=== PATIENT | female | born 1930 | race Caucasian/White ===

== ENCOUNTER 2018-12-29 18:09 | Emergency (ER) | payer OTHER ==
--- OUTSIDE RECORDS SUMMARY | 2018-12-29 18:11 | XMS REPORT ---
:1930 Author Organization [facility] Address [address] [place] [address] Dr. Han[address] [place] [id number] Care Team Providers Name Role Phone Unavailable Unavailable Unavailable Problems This patient has no known problems. Allergies, Adverse Reactions, Alerts This patient has no known allergies or adverse reactions. Medications This patient has no known medications.
--- OUTSIDE RECORDS SUMMARY | 2018-12-29 18:11 | XMS REPORT ---
:1930 Author Organization eClinicalWorks Care Team Providers Name Role Phone Sophia Pham Provider Role Unavailable Allergies, Adverse Reactions, Alerts Substance Reaction Event Type Cyclobenzaprine HCl Info Not Available Drug Allergy Problems Problem Type Condition Code Onset Dates Condition Status Problem Chronic obstructive pulmonary J44.9 Active disease, unspecified COPD type Problem Osteoporosis, unspecified M81.0 Active osteoporosis type, unspecified pathological fracture presence Problem Hypertension, unspecified type I10 Active Problem Anemia D64.9 Active Problem Osteoporosis M81.0 Active Problem GERD (gastroesophageal reflux K21.9 Active disease) 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 Problem History of cerebrovascular accident Z86.73 Active Problem History of fall Z91.81 Active Problem 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, unspecified Assessment Osteoporosis, unspecified M81.0 Active osteoporosis type, unspecified pathological fracture presence Assessment Chronic obstructive pulmonary J44.9 Active disease, unspecified COPD type Assessment Hypertension, unspecified type I10 Active Problem History of pancreatitis Z87.19 Active Assessment Hypothyroidism, unspecified type E03.9 Active Problem Hypothyroidism, unspecified type E03.9 Active Assessment Hyperlipidemia, unspecified E78.5 Active hyperlipidemia type Problem Hyperlipidemia, unspecified E78.5 Active hyperlipidemia type Medications Medication Code Code Instructions Start End Status Dosage System Date Date Myrbetriq [facility] 50270251300 25 MG Orally Active 1 tablet Once a day Verapamil HCl ER [facility] 37978491023 120 MG Orally Active 1 capsule Once a day (SR) per Sendkali Colmenares Advair Diskus [facility] [address]-32 250-50 MCG/DOSE Active not Inhalation defined Doxycycline [facility] 61017546029 100 MG Orally Active 1 capsule Hyclate Twice a day x10 days Oxybutynin [facility] 22750421669 10 MG Orally Oct Active 1 tablet Chloride ER Once a day 2017 Robaxin [facility] 62337958716 500 MG Orally Active 1.5 every 4 hrs tablets Diltiazem HCl ER [facility] [address]-19 360 MG Orally Active 1 capsule Once a day Pantoprazole [facility] 18961861294 40 MG Orally Active 1 tablet Sodium Once daily Biaxin ND 66437630113 500 MG Orally Active 1 tablet every 12 hrs Symbicort [facility] 11020672653 160-4.5 MCG/ACT Active 2 puffs Inhalation Twice a day Plavix [facility] 50586850236 75 MG Orally Active 1 tablet Once daily ProAir HFA [facility] 48915867375 108 (90 Base) Active 2 puffs as MCG/ACT needed for Inhalation sob or every 4-6 hrs wheezing Nitroglycerin [facility] 46744368339 0.4 MG Active not Sublingual defined Simvastatin [facility] 61275124304 20 mg Orally Active 1 tablet Once a day in the evening Ferrous Sulfate [facility] 23537147996 325 (65 Fe) MG Active 1 tablet Orally Once a day Augmentin [facility] 35900592830 875-125 MG Active 1 tablet Orally Twice daily [id number]-[id number] [facility] [address]27 Orally Once Active 1 tablet daily Prolia [facility] 71972296494 60 MG/ML Active not Subcutaneous defined Synthroid [facility] 00428590222 25 MCG Orally Active 1 tablet Once a day on an empty stomach in the morning Keflex [facility] 15575497373 500 MG Orally Active 1 capsule every 12 hrs Folic Acid ND 79895111984 1 MG Orally Active 1 tablet Once a day Aspir-Low [facility] 08280592413 81 MG Orally Active 1 tablet Once a day Results No Known Results Summary Purpose eClinicalWorks Submission
--- OUTSIDE RECORDS SUMMARY | 2018-12-29 18:12 | XMS REPORT ---
:1930 Author Organization eClinicalWorks Care Team Providers Name Role Phone Sophia Pham Provider Role Unavailable Allergies No Known Allergies Problems Problem Type Condition Code Onset Dates [...] vocal cords and J38.00 Active larynx, unspecified Problem History of pancreatitis Z87.19 Active Problem Hypothyroidism, unspecified type E03.9 Active Problem Hyperlipidemia, unspecified E78.5 Active hyperlipidemia type Medications Medication Code Code Instructions Start End Date Status Dosage System Date Prolia [facility] 35591426678 60 MG/ML March 13, Sep 04, Active as directed Subcutaneous 2017 injection every 6 months Results No Known Results Summary Purpose eClinicalWorks Submission
--- OUTSIDE RECORDS SUMMARY | 2018-12-29 18:12 | XMS REPORT ---
:1930 [facility] Team Providers Name Role Phone Sophia [...] Problem Hypothyroidism, unspecified type E03.9 Active Assessment Osteoporosis, unspecified M81.0 Active osteoporosis type, unspecified pathological fracture presence Problem Hyperlipidemia, unspecified E78.5 Active hyperlipidemia type Medications Medication Code Code Instructions Start End Status Dosage System Date Date Z54-Cgmxsd [facility] [address] Orally Once Active 1 tablet daily Verapamil HCl ER ND 70479807373 120 MG Orally Active 1 capsule Once a day (SR) per Sendi Colmenares Prolia [facility] 55614773147 60 MG/ML Active not Subcutaneous defined Robaxin [facility] 38722766779 500 MG Orally Active 1.5 every 4 hrs tablets Taztia XT [facility] 96723519590 360 MG Active TAKE ONE (1) CAPSULE(S) BY MOUTH ONCE A DAY. Biaxin ND 11352957766 500 MG Orally Active 1 tablet every 12 hrs Keflex ND 74567799305 500 MG Orally Active 1 capsule every 12 hrs Myrbetriq ND 44533645595 25 MG Orally Active 1 tablet Once a day Ferrous Sulfate ND 53610164396 325 (65 Fe) MG Active 1 tablet Orally Once a day Synthroid ND 66275684367 25 MCG Orally Active 1 tablet Once a day on an empty stomach in the morning Prolia [facility] 96220179521 60 MG/ML March Active as Subcutaneous 1 2017 05, directed injection every 2019 6 months Prolia ND 44615521224 60 MG/ML April 09Oct Active as Subcutaneous 2017 12, directed every 6 months 2019 Augmentin [facility] 34326128526 875-125 MG Active 1 tablet Orally Twice daily Folic Acid [facility] 31296697201 1 MG Orally Active 1 tablet Once a day Pantoprazole [facility] 94191828227 40 MG Orally Active 1 tablet Sodium Once daily Diltiazem HCl ER [facility] [address]-65 360 MG Orally Active 1 capsule Once a day Doxycycline [facility] 15034972169 100 MG Orally Active 1 capsule Hyclate Twice a day x10 days Aspir-Low [facility] 84505455194 81 MG Orally Active 1 tablet Once a day Nitroglycerin [facility] 07333627743 0.4 MG Active not Sublingual defined ProAir HFA [facility] 21388878750 108 (90 Base) Active 2 puffs as MCG/ACT needed for Inhalation sob or every 4-6 hrs wheezing Simvastatin [facility] 91914787891 20 mg Orally Active 1 tablet Once a day in the evening Symbicort [facility] 16522362350 160-4.5 MCG/ACT Active 2 puffs Inhalation Twice a day Oxybutynin [facility] 24176193638 10 MG Orally Oct Active 1 tablet Chloride ER Once a day 2017 Plavix [facility] 77995697315 75 MG Orally Active 1 tablet Once daily Advair Diskus [facility] [address]-96 250-50 MCG/DOSE Active not Inhalation defined Results No Known Results Summary Purpose eClinicalWorks Submission
--- OUTSIDE RECORDS SUMMARY | 2018-12-29 18:12 | XMS REPORT ---
[...] Hyperlipidemia, unspecified E78.5 Active hyperlipidemia type Medications No Known Medications Results No Known Results Summary Purpose [employer] Submission
--- OUTSIDE RECORDS SUMMARY | 2018-12-29 18:12 | XMS REPORT ---
[...] End Date Status Dosage System Date Prolia [facility] 05498148426 60 MG/ML April 09Oct 01, Active as directed Subcutaneous 2017 2018 every 6 months Results No Known Results Summary Purpose eClinicalWorks Submission
--- OUTSIDE RECORDS SUMMARY | 2018-12-29 18:12 | XMS REPORT ---
: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, unspecified Problem GERD (gastroesophageal reflux K21.9 Active disease) Problem Overactive bladder N32.81 Active Problem History of fall Z91.81 Active Problem Hypothyroidism, unspecified type E03.9 Active Assessment Osteoporosis, unspecified M81.0 Active osteoporosis type, unspecified pathological fracture presence Problem History of pancreatitis Z87.19 Active Problem Hypertension, unspecified type I10 Active Problem Hyperlipidemia, unspecified E78.5 Active hyperlipidemia type Problem Osteoporosis, unspecified M81.0 Active osteoporosis type, unspecified pathological fracture presence Problem Chronic obstructive pulmonary J44.9 Active disease, unspecified COPD type Problem History of cerebrovascular Z86.73 Active accident Medications Medication Code Code Instructions Start End Status Dosage System Date Date Augmentin [facility] [place] 72055778310 875-125 MG Active 1 tablet Orally Twice daily Keflex [facility] [place]] 64863813562 500 MG Orally Active 1 capsule every 12 hrs Diltiazem HCl ER [facility] [place]] 89005995724 360 MG Orally Sep 03, Active 1 tablet Coated Beads Once a day 2017 Myrbetriq [facility] [place] 44198155796 25 MG Orally Active 1 tablet Once a day Myrbetriq [facility] [place]] 83560454495 25 mg Orally Sep 03May Active 1 tablet Once a day 2017 Loratadine [facility] [place]] 42298941558 10 MG Orally Active 1 tablet Once daily Aspir-Low [facility] [place] 12243329323 81 MG Orally Active 1 tablet Once a day Biaxin [facility] [place]] 00506845755 500 MG Orally Active 1 tablet every 12 hrs ProAir HFA [facility] [place]] 63109043236 108 (90 Base) Active 2 puffs as MCG/ACT needed for Inhalation sob or every 4-6 hrs wheezing Verapamil HCl ER [facility] [place]] 95068775976 120 MG Orally Active 1 capsule Once a day (SR) per Sendi Colmenares Oxybutynin [facility] [place]] 43875981148 10 MG Active TAKE ONE Chloride ER (1) TABLET(S) BY MOUTH ONCE A DAY. Plavix [facility] [place]] 90814438085 75 MG Orally Active 1 tablet Once daily Prolia [facility] [place] 76537623248 60 MG/ML March Active as Subcutaneous 1 2017 16, directed injection every 2019 6 months Vitamin E ND 04265854276 400 UNIT Orally Active 1 tablet Once daily Symbicort [facility] [place]] 28870383107 160-4.5 MCG/ACT Active 2 puffs Inhalation Twice a day Advair Diskus [facility] [place] [address]-64 250-50 MCG/DOSE Active not Inhalation defined Robaxin [facility] [place] 51275628981 500 MG Orally Active 1.5 every 4 hrs tablets Flonase [facility] [place]] 95836689653 50 MCG/ACT Active 2 sprays Nasally Once a day ProAir HFA [facility] [place] 75777794065 108 (90 Base) Sep 03, Active 2 puffs as MCG/ACT 2017 needed Inhalation every 4-6 hrs Lyrica [facility] [place]] 15856726771 50 MG Orally Active 1 capsule Once to twice daily as needed for pain Nitroglycerin [facility] [place]] 59072410329 0.4 MG Active not Sublingual defined Doxycycline [facility] [place]] 26231288315 100 MG Orally Active 1 capsule Hyclate Twice a day x10 days P38-[id number] [facility] [place] 2] 71332168282 1 MG Orally Active 1 tablet Once daily (1,000 mcg) Pantoprazole [facility] [place]] 31460753841 40 MG Orally Active 1 tablet Sodium Once daily Synthroid ND 27230498917 25 MCG Orally Active 1 tablet Once a day on an empty stomach in the morning Folic Acid [facility] [place] 65413924125 1 MG Orally Active 1 tablet Once a day Ferrous Sulfate [facility] [place] 2] 04596221560 325 (65 Fe) MG Active 1 tablet Orally Once a day Simvastatin ND 76721329127 20 mg Orally Active 1 tablet Once a day in the evening Results No Known Results Summary Purpose eClinicalWorks Submission
--- OUTSIDE RECORDS SUMMARY | 2018-12-29 18:12 | XMS REPORT ---
:1930 Author Organization eClinicalWorks Care Team Providers Name Role Phone Carolina Mcgraw Provider Role Unavailable Allergies, Adverse Reactions, Alerts [...] Problem Hypothyroidism, unspecified type E03.9 Active Assessment Contusion of right upper S40.021A Active extremity, initial encounter Problem History of pancreatitis Z87.19 Active Problem Hypertension, unspecified type I10 Active Problem Hyperlipidemia, unspecified E78.5 Active hyperlipidemia type Problem Osteoporosis, unspecified M81.0 Active osteoporosis type, unspecified pathological fracture presence Problem Chronic obstructive pulmonary J44.9 Active disease, unspecified COPD type Problem History of cerebrovascular Z86.73 Active accident Medications Medication Code Code Instructions Start End Status Dosage System Date Date Simvastatin ND 68289171329 20 mg Orally Active 1 tablet Once a day in the evening Verapamil HCl ER ND 54564698588 120 MG Orally Active 1 capsule Once a day (SR) per Sendi Colmenares Prolia [facility] 62395128339 60 MG/ML April 09Oct Active as Subcutaneous 2017 12, directed every 6 months 2018 Prolia ND 78209902159 60 MG/ML March Active as Subcutaneous 2017 05, directed injection every 2019 6 months Symbicort [facility] 42906632304 160-4.5 MCG/ACT Active 2 puffs Inhalation Twice a day Advair Diskus [facility] [address]-07 250-50 MCG/DOSE Active not Inhalation defined Nitroglycerin [facility] 29514132482 0.4 MG Active not Sublingual defined Keflex ND 08443001932 500 MG Orally Active 1 capsule every 12 hrs ProAir HFA [facility] 29426833268 108 (90 Base) Active 2 puffs as MCG/ACT needed for Inhalation sob or every 4-6 hrs wheezing Oxybutynin [facility] 86305933496 10 MG Active TAKE ONE Chloride ER (1) TABLET(S) BY MOUTH ONCE A DAY. Robaxin [facility] 82123289075 500 MG Orally Active 1.5 every 4 hrs tablets Biaxin [facility] 47831404368 500 MG Orally Active 1 tablet every 12 hrs Myrbetriq ND 29885319631 25 MG Orally Active 1 tablet Once a day Ferrous Sulfate [facility] 91268126789 325 (65 Fe) MG Active 1 tablet Orally Once a day Aspir-Low ND 58886594144 81 MG Orally Active 1 tablet Once a day Prolia [facility] 60481315222 60 MG/ML Active not Subcutaneous defined Taztia XT [facility] 69144493484 360 MG Active TAKE ONE (1) CAPSULE(S) BY MOUTH ONCE A DAY. Plavix [facility] 49472263138 75 MG Orally Active 1 tablet Once daily Folic Acid ND 35127990492 1 MG Orally Active 1 tablet Once a day Pantoprazole [facility] 92261397287 40 MG Orally Active 1 tablet Sodium Once daily Synthroid [facility] 68435959386 25 MCG Active TAKE ONE (1) TABLET(S) BY MOUTH ONCE A DAY. [id number] [facility] [address] Orally Once Active 1 tablet daily Augmentin [facility] 70693759721 875-125 MG Active 1 tablet Orally Twice daily Doxycycline ND 64450739847 100 MG Orally Active 1 capsule Hyclate Twice a day x10 days Results No Known Results Summary Purpose eClinicalWorks Submission
--- OUTSIDE RECORDS SUMMARY | 2018-12-29 18:12 | XMS REPORT ---
[...] Medications Results No Known Results Summary Purpose [employer] Submission
--- OUTSIDE RECORDS SUMMARY | 2018-12-29 18:12 | XMS REPORT ---
[...] Medications Results No Known Results Summary Purpose [employer] Submission
--- OUTSIDE RECORDS SUMMARY | 2018-12-29 18:12 | XMS REPORT ---
:1930 Author Organization eClinicalWorks Care Team Providers Name Role Phone Ángel Phamen Provider Role Unavailable Allergies, Adverse Reactions, Alerts Substance Reaction Event Type Cyclobenzaprine HCl Info Not Available Drug Allergy Problems Problem Type Condition Code Onset Dates Condition Status Assessment Osteoporosis, unspecified M81.0 Active osteoporosis type, unspecified pathological fracture presence Problem Osteoporosis, unspecified M81.0 Active osteoporosis type, unspecified pathological fracture presence Assessment Overactive bladder N32.81 Active Problem History of cerebrovascular Z86.73 Active accident Assessment Hypothyroidism, unspecified type E03.9 Active 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 Problem Anemia D64.9 Active Problem Osteoporosis M81.0 Active Problem Dysphagia, unspecified type R13.10 Active Problem Status post fall Z91.81 Active Assessment Status post fall Z91.81 Active Assessment Hypertension, unspecified type I10 Active Problem Contusion of right upper S40.021A Active extremity, initial encounter Assessment Hyperlipidemia, unspecified E78.5 Active hyperlipidemia type Problem 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, unspecified Problem GERD (gastroesophageal reflux K21.9 Active disease) Problem Overactive bladder N32.81 Active Problem History of fall Z91.81 Active Problem Hypothyroidism, unspecified type E03.9 Active Assessment History of cerebrovascular Z86.73 Active accident Assessment Dysphagia, unspecified type R13.10 Active Problem History of pancreatitis Z87.19 Active Problem Hypertension, unspecified type I10 Active Problem Hyperlipidemia, unspecified E78.5 Active hyperlipidemia type Problem Chronic obstructive pulmonary J44.9 Active disease, unspecified COPD type Medications Medication Code Code Instructions Start End Status Dosage System Date Date Robaxin [facility] 53177386847 500 MG Orally Active 1.5 every 4 hrs tablets ProAir HFA [facility] 16105196496 108 (90 Base) Sep 03, Active 2 puffs as MCG/ACT 2018 needed Inhalation every 4-6 hrs Diltiazem HCl ER ND 62185400238 360 MG Orally Sep 03, Active 1 tablet Coated Beads Once a day 2017 Simvastatin ND 17641752593 20 mg Orally Active 1 tablet Once a day in the evening Oxybutynin ND 05102797336 10 MG Active TAKE ONE Chloride ER (1) TABLET(S) BY MOUTH ONCE A DAY. Folic Acid ND 12228918484 1 MG Orally Active 1 tablet Once a day Doxycycline ND 48845813044 100 MG Orally Active 1 capsule Hyclate Twice a day x10 days Nitroglycerin ND 64719046204 0.4 MG Active not Sublingual defined Plavix [facility] 06348886271 75 MG Orally Active 1 tablet Once daily Myrbetriq ND 28524136856 25 MG Orally Active 1 tablet Once a day Taztia XT ND 71321657003 360 MG Active TAKE ONE (1) CAPSULE(S) BY MOUTH ONCE A DAY. Prolia [facility] 29242474511 60 MG/ML March Active as Subcutaneous 1 2017 05, directed injection every 2018 6 months Keflex ND 47030263676 500 MG Orally Active 1 capsule every 12 hrs Biaxin ND 43690765582 500 MG Orally Active 1 tablet every 12 hrs Ferrous Sulfate [facility] 95887878965 325 (65 Fe) MG Active 1 tablet Orally Once a day Aspir-Low ND 37495071092 81 MG Orally Active 1 tablet Once a day Augmentin ND 28683327818 875-125 MG Active 1 tablet Orally Twice daily Synthroid ND 57910780862 25 MCG Orally Active 1 tablet Once a day on an empty stomach in the morning Myrbetriq ND 55524933873 25 mg Orally Sep 03May Active 1 tablet Once a day 2017 ProAir HFA [facility] 29394685459 108 (90 Base) Active 2 puffs as MCG/ACT needed for Inhalation sob or every 4-6 hrs wheezing Pantoprazole ND 22099223245 40 MG Orally Active 1 tablet Sodium Once daily Prolia [facility] 47609738062 60 MG/ML Active [place] [address]-87 250-50 MCG/DOSE Active not Inhalation defined U81-Cknkfu [facility] [address] Orally Once Active 1 tablet daily Verapamil HCl ER ND 85728727317 120 MG Orally Active 1 capsule Once a day (SR) per Sendi Colmenares Symbicort [facility] 38892631801 160-4.5 MCG/ACT Active 2 puffs Inhalation Twice a day Results No Known Results Summary Purpose eClinicalWorks Submission
--- OUTSIDE RECORDS SUMMARY | 2018-12-29 18:12 | XMS REPORT ---
:1930 Author Organization eClinicalWorks Care Team Providers Name Role Phone Ángel Phamen Provider Role Unavailable Allergies No Known Allergies [...] Problem Hypothyroidism, unspecified type E03.9 Active Problem History of pancreatitis Z87.19 Active Problem Hypertension, unspecified type I10 Active Problem Hyperlipidemia, unspecified E78.5 Active hyperlipidemia type Problem Osteoporosis, unspecified M81.0 Active osteoporosis type, unspecified pathological fracture presence Problem Chronic obstructive pulmonary J44.9 Active disease, unspecified COPD type Problem History of cerebrovascular Z86.73 Active accident Medications No Known Medications Results No Known Results Summary Purpose [employer] Submission
--- OUTSIDE RECORDS SUMMARY | 2018-12-29 18:13 | XMS REPORT ---
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 Assessment Osteoporosis, unspecified M81.0 Active osteoporosis type, unspecified pathological fracture presence 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 Problem Anemia D64.9 Active Problem Osteoporosis M81.0 Active Problem Dysphagia, unspecified type R13.10 Active Problem Status post fall Z91.81 Active Assessment Hypothyroidism, unspecified type E03.9 Active Assessment Chronic obstructive pulmonary J44.9 Active disease, unspecified COPD type Problem Contusion of right upper S40.021A Active extremity, initial encounter Assessment GERD (gastroesophageal reflux K21.9 Active disease) Problem 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, unspecified Problem GERD (gastroesophageal reflux K21.9 Active disease) Problem Overactive bladder N32.81 Active Problem History of fall Z91.81 Active Problem Hypothyroidism, unspecified type E03.9 Active Assessment Hyperlipidemia, unspecified E78.5 Active hyperlipidemia type Assessment Hypertension, unspecified type I10 Active Problem History of pancreatitis Z87.19 Active Problem Hypertension, unspecified type I10 Active Problem Hyperlipidemia, unspecified E78.5 Active hyperlipidemia type Problem Chronic obstructive pulmonary J44.9 Active disease, unspecified COPD type Medications Medication Code Code Instructions Start End Status Dosage System Date Date Diltiazem HCl ER ND 94694614932 360 MG Orally Sep 03, Active 1 tablet Coated Beads Once a day 2017 Loratadine ND 63427933228 10 MG Orally Active 1 tablet Once daily Oxybutynin ND 42698296613 10 MG Active TAKE ONE Chloride ER (1) TABLET(S) BY MOUTH ONCE A DAY. [id number] ND 19012979474 1 MG Orally Active 1 tablet Once daily (1,000 mcg) ProAir HFA [facility] 93085459398 108 (90 Base) Sep 03, Active 2 puffs as MCG/ACT 2018 needed Inhalation every 4-6 hrs Keflex [facility] 20872988436 500 MG Orally Active 1 capsule every 12 hrs Doxycycline ND 20220325680 100 MG Orally Active 1 capsule Hyclate Twice a day x10 days Simvastatin [facility] 13955551229 20 mg Orally Active 1 tablet Once a day in the evening Vitamin E [facility] 64555188359 400 UNIT Orally Active 1 tablet Once daily Pantoprazole [facility] 82865361328 40 MG Orally Active 1 tablet Sodium Once daily Myrbetriq [facility] 68636970081 25 MG Orally Active 1 tablet Once a day Lyrica [facility] 31384073082 50 MG Orally Active 1 capsule Once to twice daily as needed for pain Biaxin [facility] 59661057482 500 MG Orally Active 1 tablet every 12 hrs Augmentin [facility] 57228915159 875-125 MG Active 1 tablet Orally Twice daily Synthroid [facility] 79588686449 25 MCG Orally Active 1 tablet Once a day on an empty stomach in the morning Myrbetriq [facility] 80031582106 25 mg Orally Sep 03May Active 1 tablet Once a day 2017 Ferrous Sulfate [facility] 12610148346 325 (65 Fe) MG Active 1 tablet Orally Once a day Advair Diskus [facility] [address]-89 250-50 MCG/DOSE Active not Inhalation defined Flonase [facility] 70031561071 50 MCG/ACT Active 2 sprays Nasally Once a day Verapamil HCl ER [facility] 42905268360 120 MG Orally Active 1 capsule Once a day (SR) per Sendi Colmenares Prolia [facility] 88470495004 60 MG/ML March Active as Subcutaneous 1 2017 16, directed injection every 2019 6 months Robaxin [facility] 02140734014 500 MG Orally Active 1.5 every 4 hrs tablets Plavix [facility] 52638678892 75 MG Orally Active 1 tablet Once daily Folic Acid [facility] 40803732790 1 MG Orally Active 1 tablet Once a day ProAir HFA [facility] 60316582172 108 (90 Base) Active 2 puffs as MCG/ACT needed for Inhalation sob or every 4-6 hrs wheezing Aspir-Low [facility] 88603026745 81 MG Orally Active 1 tablet Once a day Nitroglycerin [facility] 67208994947 0.4 MG Active not Sublingual defined Symbicort [facility] 04987799770 160-4.5 MCG/ACT Active 2 puffs Inhalation Twice a day Results No Known Results Summary Purpose [employer] Submission
[2018-12-29] MEDS ORDERED: ACETAMINOPHEN 500 MG TAB ONE (19:03)
--- NOTE | 2018-12-29 19:27 | RAD REPORT ---
EXAM DESCRIPTION: CT - C[facility] - 12/29/2018 7:13 pm CLINICAL HISTORY: Fall, head and neck injury COMPARISON: CT head and cervical August 2016 TECHNIQUE: Axial 5 mm thick images of the head were obtained. Axial 2 mm thick images of the cervic al spine were obtained with sagittal and coronal reconstruction images generated and reviewed. All CT scans are performed using dose optimization technique as appropriate and may include automated exposure control or mA/KV adjustment according to patient size. FINDINGS: No intracranial hemorrhage, mass, edema or acute intracranial finding. No cortical edema o r sulcal effacement. Prominent atrophy and chronic ischemic changes are present. Old right basal gang gabo CVA changes are noted. Ventricles are prominent and may be slightly outside of proportion for the amount of volume loss. This is a stable pattern but could indicate normal pressure hydrocephalus. Ch ronic partial opacification of the left side mastoid air cells. Right-side mastoid air cells show min imal opacification also similar to prior imaging. No acute paranasal sinus finding. No globe or orbit abnormality seen. Cervical bodies are normal in height. Left convex curvature of the cervical spine matches the prior s tudy. No fracture or acute bony abnormality. C4-5 disc space narrowing is present. Spur or calcified protruding disc material causes significant central spinal stenosis. This is not significantly differ ent from the comparison. Significant C6-7 disc space narrowing with endplate spurring. Canal is borde rline stenotic. Significant facet degenerative changes are present. There is bilateral foraminal sten osis at C4-5. No paraspinal mass or hematoma. IMPRESSION: No hemorrhage, edema or acute intracranial finding. Patient has prominent atrophy and ch ronic ischemic change similar to comparison. Ventriculomegaly is present and could indicate normal pressure hydrocephalus. This is a stable findin g from comparison. Chronic left-side and partial right-side mastoid air cell opacification also stable from prior imagin g. Prominent cervical spine degenerative change including significant central spinal stenosis at C4-5. N o fracture or acute finding seen. No clear change from comparison.
--- NOTE | 2018-12-29 21:26 | EDPHYS ---
Physician Documentation [facility] Name: Mariluz Lau Age: 88 yrs Sex: Female : 1930 Arrival Date: 12/29/2018 Time: 18:12 Bed 20 Private MD: Sophia Pham ED Physician Fuad Delatorre HPI: 12/29 21:28 This 88 yrs old Female presents to ER via Wheelchair with complaints of Fall wa Injury - HEAD PAIN. 21:28 Details of fall: The patient fell from an upright position, while walking. Onset: The wa symptoms/episode began/occurred just prior to arrival. Associated injuries: The patient sustained injury to the head, hit back of head. no LOC. Severity of symptoms: At their worst the symptoms were moderate, in the emergency department the symptoms are unchanged. The patient has not experienced similar symptoms in the past. The patient has not recently seen a physician. c/o WOODARD. denies vomiting, photophobia or dizziness. Historical: - Allergies: 18:17 Codeine; tw2 18:17 Tape; tw2 18:17 Flexeril; tw2 - Home Meds: 18:17 aspirin 81 mg Oral TbEC 1 tab once daily [Active]; diltiazem HCl 360 mg Oral cpER tw2 [Active]; Iron CR Oral twice a week [Active]; levothyroxine 25 mcg tab [Active]; oxybutynin chloride 10 mg Oral tr24 [Active]; tramadol 50 mg Oral tab as needed [Active]; Symbicort 160-4.5 mcg/actuation inhalation HFAA [Active]; Vitamin B-12 1,000 mcg Oral tab [Active]; simvastatin 20 mg Oral tab [Active]; ProAir HFA inhalation as needed [Active]; - PMHx: 18:17 Anemia; Hypothyroidism; Hyperlipidemia; High Cholesterol; CVA; COPD; LYMPHOMA; tw2 - PSHx: 18:17 Appendectomy; Hysterectomy; lymphnode removal; tw2 - Immunization history:: Adult Immunizations. - Social history:: Smoking status: Patient/guardian denies using tobacco. - Immunization history: Last tetanus immunization: unknown. - Ebola Screening: : Patient denies travel to an Ebola-affected area in the 21 days before illness onset. - Family history:: not pertinent. - Hospitalizations: : No recent hospitalization is reported. ROS: 21:31 Constitutional: Negative for fever, chills, and weight loss, Eyes: Negative for injury, wa pain, redness, and discharge, ENT: Negative for injury, pain, and discharge, Neck: Negative for injury, pain, and swelling, Cardiovascular: Negative for chest pain, palpitations, and edema, Respiratory: Negative for shortness of breath, cough, wheezing, and pleuritic chest pain, Abdomen/GI: Negative for abdominal pain, nausea, vomiting, diarrhea, and constipation, Back: Negative for injury and pain, : Negative for injury, bleeding, discharge, and swelling, Skin: Negative for injury, rash, and discoloration, Psych: Negative for depression, anxiety, suicide ideation, homicidal ideation, and hallucinations. 21:31 MS/extremity: Positive for pain, of the left medial ankle. 21:31 Neuro: Positive for headache. 21:31 All other systems are negative. Exam: 21:32 Constitutional: This is a well developed, well nourished patient who is awake, alert, wa and in no acute distress. Eyes: Pupils equal round and reactive to light, extra-ocular motions intact. Lids and lashes normal. Conjunctiva and sclera are non-icteric and not injected. Cornea within normal limits. Periorbital areas with no swelling, redness, or edema. ENT: Nares patent. No nasal discharge, no septal abnormalities noted. Tympanic membranes are normal and external auditory canals are clear. Oropharynx with no redness, swelling, or masses, exudates, or evidence of obstruction, uvula midline. Mucous membranes moist. Neck: Trachea midline, no thyromegaly or masses palpated, and no cervical lymphadenopathy. Supple, full range of motion without nuchal rigidity, or vertebral point tenderness. No Meningismus. Chest/axilla: Normal chest wall appearance and motion. Nontender with no deformity. No lesions are appreciated. Cardiovascular: Regular rate and rhythm with a normal S1 and S2. No gallops, murmurs, or rubs. Normal PMI, no JVD. No pulse deficits. Respiratory: Lungs have equal breath sounds bilaterally, clear to auscultation and percussion. No rales, rhonchi or wheezes noted. No increased work of breathing, no retractions or nasal flaring. Abdomen/GI: Soft, non-tender, with normal bowel sounds. No distension or tympany. No guarding or rebound. No evidence of tenderness throughout. Back: No spinal tenderness. No costovertebral tenderness. Full range of motion. Skin: Warm, dry with normal turgor. Normal color with no rashes, no lesions, and no evidence of cellulitis. Psych: Awake, alert, with orientation to person, place and time. Behavior, mood, and affect are within normal limits. 21:32 Head/face: Noted is tenderness, that is mild, of the posterior scalp. 21:32 Musculoskeletal/extremity: Extremities: grossly normal except: noted in the left ankle. mild swelling. no deformity: tenderness. Vital Signs: 18:17 BP 180 / 80; Pulse 73; Resp 17; Temp 97.4(TE); Pulse Ox 100% on R/A; Weight 56.7 kg tw2 (R); Pain 6/10; 19:00 BP 146 / 61; Pulse 71; Resp 18; Pulse Ox 99% on R/A; ea 20:45 BP 157 / 52; Pulse 70; Resp 18; Pulse Ox 99% on R/A; ea Malgorzata Coma Score: 18:21 Eye Response: spontaneous(4). Verbal Response: oriented(5). Motor Response: obeys bp commands(6). Total: 15. 19:00 Eye Response: spontaneous(4). Verbal Response: oriented(5). Motor Response: obeys ea commands(6). Total: 15. 20:45 Eye Response: spontaneous(4). Verbal Response: oriented(5). Motor Response: obeys ea commands(6). Total: 15. Trauma Score (Adult): 18:21 Eye Response: spontaneous(1); Verbal Response: oriented(1); Motor Response: obeys bp commands(2); Systolic BP: > 89 mm Hg(4); Respiratory Rate: 10 to 29 per min(4); Malgorzata Score: 15; Trauma Score: 12 MDM: 18:23 Patient medically screened. wa 21:34 Differential diagnosis: fall. WOODARD. r/o acute ICH. pt's age makes her liable to wa significant risk. Data reviewed: vital signs, nurses notes, radiologic studies. Test interpretation: by ED physician or midlevel provider: head and C-spine CT: no acute process. L ankle x-ray: no acute fx or dislocation. Response to treatment: the patient's symptoms have resolved after treatment, WOODARD resolved completely with tylenol prior to d/c. 12/29 18:46 Order name: CT Head C Spine; Complete Time: 19:46 ms 12/29 18:47 Order name: Ankle Left 3 View XRAY ms Administered Medications: 19:00 Drug: Tylenol 1000 mg Route: PO; bp 19:00 Follow up: Response: No adverse reaction bp Disposition: 12/29/18 21:26 Discharged to Home. Impression: Fall, Acute Head Injury. - Condition is Stable. - Discharge Instructions: Head Injury, Adult, [id number]. - Medication Reconciliation Form, Thank You Letter, Antibiotic Education, Prescription Opioid Use form. - Follow up: Private Physician; When: 1 - 2 days; Reason: Re-evaluation by your physician. - Problem is new. - Symptoms have improved. - Notes: give tylenol for pain as needed. see her doctor or return here immediately for any worrisome concerns as described to you Signatures: Dispatcher [employer] [facility] Mary Gomez RN RN tw2 Nisa Ash RN RN ea Fuad Delatorre MD MD wa Peltier, Brian, RN RN bp Corrections: (The following items were deleted from the chart) 21:38 21:26 12/29/2018 21:26 Discharged to Home. Impression: Fall; Acute Head Injury. ea Condition is Stable. Forms are Medication Reconciliation Form, Thank You Letter, Antibiotic Education, Prescription Opioid Use. Follow up: Private Physician; When: 1 - 2 days; Reason: Re-evaluation by your physician. Problem is new. Symptoms have improved. ms
--- NOTE | 2018-12-29 21:26 | ER ---
Nurse's Notes [facility] Name: Mariluz Lau Age: 88 yrs Sex: Female : 1930 Arrival Date: 12/29/2018 Time: 18:12 Bed 20 Private MD: Sophia Pham Diagnosis: Fall;Acute Head Injury Presentation: 12/29 18:14 Presenting complaint: Patient states: i fell about a half hour ago, i was getting out tw2 of car and then started staggering, i hit my head on the grass, the back of my, denies LOC, denies n/v. Transition of care: patient was not received from another setting of care. Onset of symptoms was December 29, 2018. Risk Assessment: Do you want to hurt yourself or someone else? Patient reports no desire to harm self or others. Initial Sepsis Screen: Does the patient meet any 2 criteria? No. Patient's initial sepsis screen is negative. Does the patient have a suspected source of infection? No. Patient's initial sepsis screen is negative. Care prior to arrival: None. 18:14 Method Of Arrival: Wheelchair tw2 18:14 Acuity: JESSICA 4 tw2 18:15 Mechanism of Injury: Fall from standing position. Trauma event details: Injury occurred bp in the [facility], Injury occurred: at home. Injury occurred: December 29, 2018 Injury occurred at: 17:00. Triage Assessment: 18:17 General: Appears in no apparent distress. Behavior is calm, cooperative, appropriate tw2 for age. Pain: Complains of pain in scalp and "headache". Neuro: Reports headache Denies dizziness. Trauma Activation: Not Applicable Physician: ED Physician; Name: ; Notified At: ; Arrived At: Physician: General Surgeon; Name: ; Notified At: ; Arrived At: Physician: Radiology; Name: ; Notified At: ; Arrived At: Physician: Respiratory; Name: ; Notified At: ; Arrived At: Physician: Lab; Name: ; Notified At: ; Arrived At: 18:15 DEFERRED BY ATTENDING MD bp Historical: - Allergies: 18:17 Codeine; tw2 18:17 Tape; tw2 18:17 Flexeril; tw2 - Home Meds: 18:17 aspirin 81 mg Oral TbEC 1 tab once daily [Active]; diltiazem HCl 360 mg Oral cpER tw2 [Active]; Iron CR Oral twice a week [Active]; levothyroxine 25 mcg tab [Active]; oxybutynin chloride 10 mg Oral tr24 [Active]; tramadol 50 mg Oral tab as needed [Active]; Symbicort 160-4.5 mcg/actuation inhalation HFAA [Active]; Vitamin B-12 1,000 mcg Oral tab [Active]; simvastatin 20 mg Oral tab [Active]; ProAir HFA inhalation as needed [Active]; - PMHx: 18:17 Anemia; Hypothyroidism; Hyperlipidemia; High Cholesterol; CVA; COPD; LYMPHOMA; tw2 - PSHx: 18:17 Appendectomy; Hysterectomy; lymphnode removal; tw2 - Immunization history:: Adult Immunizations. - Social history:: Smoking status: Patient/guardian denies using tobacco. - Immunization history: Last tetanus immunization: unknown. - Ebola Screening: : Patient denies travel to an Ebola-affected area in the 21 days before illness onset. - Family history:: not pertinent. - Hospitalizations: : No recent hospitalization is reported. Screenin:22 Abuse screen: Denies threats or abuse. Denies injuries from another. Nutritional bp screening: No deficits noted. Tuberculosis screening: No symptoms or risk factors identified. Fall risk At risk due to age, prior history of falls. 19:00 Fall Risk Fall in past 12 months (25 points). ea Primary Survey: 18:21 NO uncontrolled hemorrhage observed. A: The patient is alert. Airway: patent, No bp supplemental oxygen in use on arrival. Breathing/Chest: Respiratory pattern: regular, Respiratory effort: spontaneous, unlabored, Breath sounds: clear, bilaterally. Circulation: Skin color: pink, Skin temperature: warm, dry. Disability Alert. Exposure/Environment:. 19:00 Reassessment Airway Airway Patent Breathing/Chest Respiratory pattern Regular ea Respiratory effort Spontaneous Unlabored Circulation Color [place] Disability Alert. Secondary Survey: 18:21 HEENT: Head Other PAIN TO BACK OF HEAD. Gastrointestinal: Abdomen is soft, bp non-distended. : No signs and/or symptoms were reported regarding the genitourinary system. Musculoskeletal: No signs and/or symptoms reported regarding the musculoskeletal system. Injury Description: Bruise sustained to head. Assessment: 18:24 General: Appears in no apparent distress. comfortable, slender, Behavior is bp cooperative, appropriate for age, anxious. Pain: Complains of pain in head. Neuro: Level of Consciousness is awake, alert, obeys commands, Oriented to person, place, time, situation, Appropriate for age. Cardiovascular: No deficits noted. Respiratory: Airway is patent Respiratory effort is even, unlabored, Respiratory pattern is regular, symmetrical. GI: No signs and/or symptoms were reported involving the gastrointestinal system. : No signs and/or symptoms were reported regarding the genitourinary system. EENT: No deficits noted. Derm: No deficits noted. Musculoskeletal: Circulation, motion, and sensation intact. Range of motion: intact in all extremities. 19:05 Reassessment: Patient and/or family updated on plan of care and expected duration. Pain ea level reassessed. Patient is alert, oriented x 3, equal unlabored respirations, skin warm/dry/pink. Pt taken to CT. 19:13 General: Appears in no apparent distress. comfortable, slender, Behavior is calm, ea cooperative, appropriate for age. Pain: Denies pain. Neuro: Level of Consciousness is awake, alert, obeys commands, Oriented to person, place, time, situation. Cardiovascular: Patient's skin is warm and dry. Respiratory: Airway is patent Respiratory effort is even, unlabored, Respiratory pattern is regular, symmetrical. GI: No signs and/or symptoms were reported involving the gastrointestinal system. Derm: Skin is fragile, Skin is dry, Skin is normal, Skin temperature is warm. Musculoskeletal: Circulation, motion, and sensation intact. 20:48 Reassessment: Patient and/or family updated on plan of care and expected duration. Pain ea level reassessed. Patient is alert, oriented x 3, equal unlabored respirations, skin warm/dry/pink. 21:02 Reassessment: Patient and/or family updated on plan of care and expected duration. Pain ea level reassessed. Patient is alert, oriented x 3, equal unlabored respirations, skin warm/dry/pink. Patient denies pain at this time. Patient states feeling better. Patient states symptoms have improved. 21:35 Reassessment: Patient and/or family updated on plan of care and expected duration. Pain ea level reassessed. Patient is alert, oriented x 3, equal unlabored respirations, skin warm/dry/pink. Discharge instructions given to patient and daughter, both verbalized the understanding of instruction. Patient denies pain at this time. Patient states feeling better. Patient states symptoms have improved. Vital Signs: 18:17 BP 180 / 80; Pulse 73; Resp 17; Temp 97.4(TE); Pulse Ox 100% on R/A; Weight 56.7 kg tw2 (R); Pain 6/10; 19:00 BP 146 / 61; Pulse 71; Resp 18; Pulse Ox 99% on R/A; ea 20:45 BP 157 / 52; Pulse 70; Resp 18; Pulse Ox 99% on R/A; ea Malgorzata Coma Score: 18:21 Eye Response: spontaneous(4). Verbal Response: oriented(5). Motor Response: obeys bp commands(6). Total: 15. 19:00 Eye Response: spontaneous(4). Verbal Response: oriented(5). Motor Response: obeys ea commands(6). Total: 15. 20:45 Eye Response: spontaneous(4). Verbal Response: oriented(5). Motor Response: obeys ea commands(6). Total: 15. Trauma Score (Adult): 18:21 Eye Response: spontaneous(1); Verbal Response: oriented(1); Motor Response: obeys bp commands(2); Systolic BP: > 89 mm Hg(4); Respiratory Rate: 10 to 29 per min(4); Malgorzata Score: 15; Trauma Score: 12 ED Course: 18:12 Patient arrived in ED. sb2 18:12 Sophia Pham MD is Private Physician. sb2 18:15 Triage completed. tw2 18:18 Arm band placed on. EKG completed in triage. Results shown to MD. tw2 18:21 Manoj Mcmanus, RN is Primary Nurse. bp 18:21 Patient maintains SpO2 saturation greater than 95% on room air. Thermoregulation: warm bp blanket given to patient. 18:22 Patient has correct armband on for positive identification. Bed in low position. Call bp light in reach. Side rails up X2. Adult w/ patient. 18:23 Fuad Delatorre MD is Attending Physician. wa 19:14 CT Head C Spine In Process Unspecified. EDMS 19:15 CT completed. Patient tolerated procedure well. Patient moved to CT via stretcher. vm2 Patient moved back from CT. 20:17 X-ray completed. Patient tolerated procedure well. ag1 20:29 Ankle Left 3 View XRAY In Process Unspecified. EDMS 21:35 No provider procedures requiring assistance completed. Patient did not have IV access ea during this emergency room visit. Administered Medications: 19:00 Drug: Tylenol 1000 mg Route: PO; bp 19:00 Follow up: Response: No adverse reaction bp Intake: 18:21 PO: 0ml; Total: 0ml. bp Output: 18:21 Urine: 0ml; Total: 0ml. bp Outcome: 21:26 Discharge ordered by . db 21:36 Discharged to home ambulatory, with family. ea 21:36 Condition: improved 21:36 Discharge instructions given to patient, family, Instructed on discharge instructions, follow up and referral plans. Demonstrated understanding of instructions, follow-up care. 21:38 Patient's length of stay in the Emergency Department was greater than 2 hours. awaiting ea on resultsPatient's length of stay extended due to 21:38 Patient left the ED. ea Signatures: Dispatcher [employer] EDMS Mercedes Carias ag1 Mary Gomez, RN RN tw2 Suma Garcia 2 Nisa Ash, RN RN Fuad Farley MD MD wa Peltier, Brian, RN RN bp Melba Tran sb2 Corrections: (The following items were deleted from the chart) 18:18 18:14 Acuity: JESSICA 3 tw2 tw2 20:42 20:30 Reassessment: Patient and/or family updated on plan of care and expected ea duration. Pain level reassessed. Patient is alert, oriented x 3, equal unlabored respirations, skin warm/dry/pink. ea
--- NOTE | 2018-12-29 22:12 | RAD REPORT ---
EXAM DESCRIPTION: RAD - Ankle Left 3 View - 12/29/2018 8:28 pm CLINICAL HISTORY: Fall, ankle pain COMPARISON: None. FINDINGS: No fracture, dislocation or periosteal reaction. Bones are osteopenic. No pathologic bone process seen. No joint effusion suspected. No joint space narrowing. Arterial calcifications are pres ent. No significant soft tissue abnormality. Degenerative changes are present at the talocalcaneal oliver int space. IMPRESSION: No fracture or acute finding identifiable. Osteopenic and degenerative changes are prese nt. Osteopenia decreases sensitivity for fracture detection. Repeat imaging in 7 days recommended if the patient has continued symptoms concerning for fracture.
[2018-12-29 23:15] VITALS: TEMP 97.4
[2018-12-29 23:16] VITALS: O2SAT 99
[2018-12-29 23:18] VITALS: BP 157/52
== END 2018-12-29 21:38 | disposition home or self-care (01) ==
LOC: ER 18:09
DX: S09.90XA Unspecified injury of head, initial encounter (principal); W01.0XXA Fall on same level from slipping, tripping and stumbling without subsequent striking against object, initial encounter; Y93.01 Activity, walking, marching and hiking; D64.9 Anemia, unspecified; E03.9 Hypothyroidism, unspecified; E78.5 Hyperlipidemia, unspecified; E78.00 Pure hypercholesterolemia, unspecified; J44.9 Chronic obstructive pulmonary disease, unspecified; C85.90 Non-Hodgkin lymphoma, unspecified, unspecified site; Z88.5 Allergy status to narcotic agent; Z91.048 Other nonmedicinal substance allergy status; Z79.82 Long term (current) use of aspirin
CPT/HCPCS: 70450; 72125; 99284

== ENCOUNTER 2019-02-05 09:26 | Emergency (ER) | payer OTHER ==
--- OUTSIDE RECORDS SUMMARY | 2019-02-05 09:28 | XMS REPORT ---
[...] End Date Status Dosage System Date Prolia [facility] 88529793675 60 MG/ML March 13, Sep 04, Active as directed Subcutaneous 2017 injection every 6 months Results No Known Results Summary Purpose eClinicalWorks Submission
--- OUTSIDE RECORDS SUMMARY | 2019-02-05 09:28 | XMS REPORT ---
[...] End Status Dosage System Date Date Myrbetriq [facility] 31386625960 25 MG Orally Active 1 tablet Once a day Verapamil HCl ER [facility] 94083075939 120 MG Orally Active 1 capsule Once a day (SR) per Sendkali Colmenares Advair Diskus [facility] [address]-23 250-50 MCG/DOSE Active not Inhalation defined Doxycycline [facility] 94289193340 100 MG Orally Active 1 capsule Hyclate Twice a day x10 days Oxybutynin [facility] 74484341069 10 MG Orally Oct Active 1 tablet Chloride ER Once a day 2017 Robaxin [facility] 49106102640 500 MG Orally Active 1.5 every 4 hrs tablets Diltiazem HCl ER [facility] [address]-96 360 MG Orally Active 1 capsule Once a day Pantoprazole [facility] 89458184134 40 MG Orally Active 1 tablet Sodium Once daily Biaxin ND 06360023147 500 MG Orally Active 1 tablet every 12 hrs Symbicort [facility] 20059168081 160-4.5 MCG/ACT Active 2 puffs Inhalation Twice a day Plavix [facility] 47848783047 75 MG Orally Active 1 tablet Once daily ProAir HFA [facility] 47910545015 108 (90 Base) Active 2 puffs as MCG/ACT needed for Inhalation sob or every 4-6 hrs wheezing Nitroglycerin [facility] 35529962198 0.4 MG Active not Sublingual defined Simvastatin [facility] 66796300249 20 mg Orally Active 1 tablet Once a day in the evening Ferrous Sulfate [facility] 45018479898 325 (65 Fe) MG Active 1 tablet Orally Once a day Augmentin [facility] 79797603183 875-125 MG Active 1 tablet Orally Twice daily [id number] [facility] 968[address]32 Orally Once Active 1 tablet daily Prolia [facility] 67616549572 60 MG/ML Active not Subcutaneous defined Synthroid [facility] 83608516648 25 MCG Orally Active 1 tablet Once a day on an empty stomach in the morning Keflex [facility] 17080373415 500 MG Orally Active 1 capsule every 12 hrs Folic Acid ND 51874162191 1 MG Orally Active 1 tablet Once a day Aspir-Low [facility] 77998715104 81 MG Orally Active 1 tablet Once a day Results No Known Results Summary Purpose eClinicalWorks Submission
--- OUTSIDE RECORDS SUMMARY | 2019-02-05 09:28 | XMS REPORT ---
:1930 [facility] Address [address] [place] [address] Dr. Hanley [address] [place] [id number] Care Team Providers Name Role Phone Unavailable Unavailable Unavailable Problems This patient has no known problems. Allergies, Adverse Reactions, Alerts This patient has no known allergies or adverse reactions. Medications This patient has no known medications.
--- OUTSIDE RECORDS SUMMARY | 2019-02-05 09:29 | XMS REPORT ---
[...] Status Dosage System Date Date Simvastatin ND 56211208145 20 mg Orally Active 1 tablet Once a day in the evening Verapamil HCl ER ND 76214613395 120 MG Orally Active 1 capsule Once a day (SR) per Sendi Colmenares Prolia [facility] 00385963300 60 MG/ML April 09Oct Active as Subcutaneous 2017 12, directed every 6 months 2018 Prolia ND 94427980802 60 MG/ML March Active as Subcutaneous 2017 05, directed injection every 2019 6 months Symbicort [facility] 99873166627 160-4.5 MCG/ACT Active 2 puffs Inhalation Twice a day Advair Diskus [facility] [address]-47 250-50 MCG/DOSE Active not Inhalation defined Nitroglycerin [facility] 08616446718 0.4 MG Active not Sublingual defined Keflex ND 26243174599 500 MG Orally Active 1 capsule every 12 hrs ProAir HFA [facility] 24880610094 108 (90 Base) Active 2 puffs as MCG/ACT needed for Inhalation sob or every 4-6 hrs wheezing Oxybutynin [facility] 00661795954 10 MG Active TAKE ONE Chloride ER (1) TABLET(S) BY MOUTH ONCE A DAY. Robaxin [facility] 01962128185 500 MG Orally Active 1.5 every 4 hrs tablets Biaxin [facility] 61719009663 500 MG Orally Active 1 tablet every 12 hrs Myrbetriq ND 07954677149 25 MG Orally Active 1 tablet Once a day Ferrous Sulfate [facility] 78345923063 325 (65 Fe) MG Active 1 tablet Orally Once a day Aspir-Low ND 93382261334 81 MG Orally Active 1 tablet Once a day Prolia [facility] 87968488532 60 MG/ML Active not Subcutaneous defined Taztia XT [facility] 35548374555 360 MG Active TAKE ONE (1) CAPSULE(S) BY MOUTH ONCE A DAY. Plavix [facility] 59524790141 75 MG Orally Active 1 tablet Once daily Folic Acid ND 81044030733 1 MG Orally Active 1 tablet Once a day Pantoprazole [facility] 06824188644 40 MG Orally Active 1 tablet Sodium Once daily Synthroid [facility] 99783560380 25 MCG Active TAKE ONE (1) TABLET(S) BY MOUTH ONCE A DAY. [id number] [facility] [address] Orally Once Active 1 tablet daily Augmentin [facility] 61931214028 875-125 MG Active 1 tablet Orally Twice daily Doxycycline ND 61077405813 100 MG Orally Active 1 capsule Hyclate Twice a day x10 days Results No Known Results Summary Purpose eClinicalWorks Submission
--- OUTSIDE RECORDS SUMMARY | 2019-02-05 09:29 | XMS REPORT ---
[...] End Date Status Dosage System Date Prolia [facility] 69124401701 60 MG/ML April 09Oct 01, Active as directed Subcutaneous 2017 2018 every 6 months Results No Known Results Summary Purpose eClinicalWorks Submission
--- OUTSIDE RECORDS SUMMARY | 2019-02-05 09:29 | XMS REPORT ---
[...] End Status Dosage System Date Date Robaxin [facility] 67072264307 500 MG Orally Active 1.5 every 4 hrs tablets ProAir HFA [facility] 10133476329 108 (90 Base) Sep 03, Active 2 puffs as MCG/ACT 2018 needed Inhalation every 4-6 hrs Diltiazem HCl ER ND 23647716061 360 MG Orally Sep 03, Active 1 tablet Coated Beads Once a day 2017 Simvastatin ND 17219501997 20 mg Orally Active 1 tablet Once a day in the evening Oxybutynin ND 39600431517 10 MG Active TAKE ONE Chloride ER (1) TABLET(S) BY MOUTH ONCE A DAY. Folic Acid ND 26326651589 1 MG Orally Active 1 tablet Once a day Doxycycline ND 66204905964 100 MG Orally Active 1 capsule Hyclate Twice a day x10 days Nitroglycerin ND 25177940279 0.4 MG Active not Sublingual defined Plavix [facility] 77531189699 75 MG Orally Active 1 tablet Once daily Myrbetriq ND 05188875969 25 MG Orally Active 1 tablet Once a day Taztia XT ND 04552623146 360 MG Active TAKE ONE (1) CAPSULE(S) BY MOUTH ONCE A DAY. Prolia [facility] 38101644725 60 MG/ML March Active as Subcutaneous 1 2017 05, directed injection every 2018 6 months Keflex ND 33233416554 500 MG Orally Active 1 capsule every 12 hrs Biaxin ND 00951405059 500 MG Orally Active 1 tablet every 12 hrs Ferrous Sulfate [facility] 80771666899 325 (65 Fe) MG Active 1 tablet Orally Once a day Aspir-Low ND 94789635184 81 MG Orally Active 1 tablet Once a day Augmentin ND 09428687206 875-125 MG Active 1 tablet Orally Twice daily Synthroid ND 06549333023 25 MCG Orally Active 1 tablet Once a day on an empty stomach in the morning Myrbetriq ND 96134903613 25 mg Orally Sep 03May Active 1 tablet Once a day 2017 ProAir HFA [facility] 03880305644 108 (90 Base) Active 2 puffs as MCG/ACT needed for Inhalation sob or every 4-6 hrs wheezing Pantoprazole ND 67375098692 40 MG Orally Active 1 tablet Sodium Once daily Prolia [facility] 03866623991 60 MG/ML Active [place] [address]-55 250-50 MCG/DOSE Active not Inhalation defined E53-Yifnhb [facility] [address] Orally Once Active 1 tablet daily Verapamil HCl ER ND 08434660830 120 MG Orally Active 1 capsule Once a day (SR) per Sendi Colmenares Symbicort [facility] 64635504697 160-4.5 MCG/ACT Active 2 puffs Inhalation Twice a day Results No Known Results Summary Purpose eClinicalWorks Submission
--- OUTSIDE RECORDS SUMMARY | 2019-02-05 09:29 | XMS REPORT ---
[...] Medications Results No Known Results Summary Purpose [employer] Submission
--- OUTSIDE RECORDS SUMMARY | 2019-02-05 09:29 | XMS REPORT ---
[...] Medications Results No Known Results Summary Purpose [email or web address] Submission
--- OUTSIDE RECORDS SUMMARY | 2019-02-05 09:29 | XMS REPORT ---
:1930 [email or web address] Care Team Providers Name Role Phone Sophia [...] Start End Status Dosage System Date Date R31-Dgburr [facility] [address] Orally Once Active 1 tablet daily Verapamil HCl ER ND 18566427558 120 MG Orally Active 1 capsule Once a day (SR) per Sendi Colmenares Prolia [facility] 17488873868 60 MG/ML Active not Subcutaneous defined Robaxin [facility] 07613156049 500 MG Orally Active 1.5 every 4 hrs tablets Taztia XT [facility] 18017841087 360 MG Active TAKE ONE (1) CAPSULE(S) BY MOUTH ONCE A DAY. Biaxin ND 09350972380 500 MG Orally Active 1 tablet every 12 hrs Keflex ND 06526326500 500 MG Orally Active 1 capsule every 12 hrs Myrbetriq ND 84084649113 25 MG Orally Active 1 tablet Once a day Ferrous Sulfate ND 62287263803 325 (65 Fe) MG Active 1 tablet Orally Once a day Synthroid ND 73669468226 25 MCG Orally Active 1 tablet Once a day on an empty stomach in the morning Prolia [facility] 07174141556 60 MG/ML March Active as Subcutaneous 1 2017 05, directed injection every 2019 6 months Prolia ND 20203797254 60 MG/ML April 09Oct Active as Subcutaneous 2017 12, directed every 6 months 2019 Augmentin [facility] 32348699495 875-125 MG Active 1 tablet Orally Twice daily Folic Acid [facility] 99796752107 1 MG Orally Active 1 tablet Once a day Pantoprazole [facility] 12129077708 40 MG Orally Active 1 tablet Sodium Once daily Diltiazem HCl ER [facility] [address]-45 360 MG Orally Active 1 capsule Once a day Doxycycline [facility] 92392234232 100 MG Orally Active 1 capsule Hyclate Twice a day x10 days Aspir-Low [facility] 46558224967 81 MG Orally Active 1 tablet Once a day Nitroglycerin [facility] 13677082112 0.4 MG Active not Sublingual defined ProAir HFA [facility] 35027339722 108 (90 Base) Active 2 puffs as MCG/ACT needed for Inhalation sob or every 4-6 hrs wheezing Simvastatin [facility] 82033542146 20 mg Orally Active 1 tablet Once a day in the evening Symbicort [facility] 28032057772 160-4.5 MCG/ACT Active 2 puffs Inhalation Twice a day Oxybutynin [facility] 64130985002 10 MG Orally Oct Active 1 tablet Chloride ER Once a day 2017 Plavix [facility] 17539370662 75 MG Orally Active 1 tablet Once daily Advair Diskus [facility] [address]-90 250-50 MCG/DOSE Active not Inhalation defined Results No Known Results Summary Purpose eClinicalWorks Submission
--- OUTSIDE RECORDS SUMMARY | 2019-02-05 09:29 | XMS REPORT ---
[...] Medications Results No Known Results Summary Purpose [employer] Submission
--- OUTSIDE RECORDS SUMMARY | 2019-02-05 09:30 | XMS REPORT ---
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, unspecified Problem GERD (gastroesophageal reflux K21.9 Active disease) Problem Subcutaneous mass of neck R22.1 Active Assessment Neck pain M54.2 Active Problem Contusion of right upper S40.021A Active extremity, initial encounter Assessment Status post fall Z91.81 Active Assessment Follow-up exam Z09 Active Problem Neck pain M54.2 Active Problem Overactive bladder N32.81 Active Problem History of fall Z91.81 Active Problem Dysphagia, unspecified type R13.10 Active Problem Status post fall Z91.81 Active Problem Hyperlipidemia, unspecified E78.5 Active hyperlipidemia type Problem Chronic obstructive pulmonary J44.9 Active disease, unspecified COPD type Problem Hypothyroidism, unspecified type E03.9 Active Problem Osteoporosis, unspecified M81.0 Active osteoporosis type, unspecified pathological fracture presence Problem History of cerebrovascular Z86.73 Active accident Problem History of pancreatitis Z87.19 Active 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 Assessment Subcutaneous mass of neck R22.1 Active Problem Hypertension, unspecified type I10 Active Problem Osteoporosis M81.0 Active Medications Medication Code Code Instructions Start End Status Dosage System Date Date Keflex [facility] 00836768885 500 MG Orally Active 1 capsule every 12 hrs Biaxin ND 88926803662 500 MG Orally Active 1 tablet every 12 hrs Myrbetriq ND 20438361782 25 MG Orally Active 1 tablet Once a day ProAir HFA [facility] 79225399514 108 (90 Base) Active 2 puffs as MCG/ACT needed for Inhalation sob or every 4-6 hrs wheezing Ferrous Sulfate ND 61772171790 325 (65 Fe) MG Active 1 tablet Orally Once a day N40-Tajlps ND 44274567944 1 MG Orally Active 1 tablet Once daily (1,000 mcg) Oxybutynin [facility] 36901307552 10 MG Active TAKE ONE Chloride ER (1) TABLET(S) BY MOUTH ONCE A DAY. Symbicort [facility] 16418710598 160-4.5 MCG/ACT Active 2 puffs Inhalation Twice a day Lyrica [facility] 09259343293 50 MG Orally Active 1 capsule Once to twice daily as needed for pain Prolia [facility] 16671585812 60 MG/ML March Active as Subcutaneous 1 2017 16, directed injection every 2018 6 months Verapamil HCl ER [facility] 70411390445 120 MG Orally Active 1 capsule Once a day (SR) per Sendi Colmenares Plavix [facility] 63937949037 75 MG Orally Active 1 tablet Once daily Flonase [facility] 57898190938 50 MCG/ACT Active 2 sprays Nasally Once a day Vitamin E [facility] 00182936819 400 UNIT Orally Active 1 tablet Once daily Advair Diskus [facility] [address]-63 250-50 MCG/DOSE Active not Inhalation defined Augmentin [facility] 83190441853 875-125 MG Active 1 tablet Orally Twice daily Aspir-Low [facility] 04556716748 81 MG Orally Active 1 tablet Once a day Loratadine ND 79464205841 10 MG Orally Active 1 tablet Once daily ProAir HFA [facility] 31971305945 108 (90 Base) Sep 03, Active 2 puffs as MCG/ACT 2017 needed Inhalation every 4-6 hrs Pantoprazole [facility] 57706068935 40 MG Orally Active 1 tablet Sodium Once daily Robaxin [facility] 44542063327 500 MG Orally Active 1.5 every 4 hrs tablets Doxycycline [facility] 12951274034 100 MG Orally Active 1 capsule Hyclate Twice a day x10 days Folic Acid ND 13221706979 1 MG Orally Active 1 tablet Once a day Nitroglycerin [facility] 17133747832 0.4 MG Active not Sublingual defined Synthroid [facility] 75395391003 25 MCG Orally Active 1 tablet Once a day on an empty stomach in the morning Diltiazem HCl ER [facility] 28388360802 360 MG Orally Sep 03, Active 1 tablet Coated Beads Once a day 2017 Simvastatin ND 34871508457 20 mg Orally Active 1 tablet Once a day in the evening Myrbetriq [facility] 43391438784 25 mg Orally Sep 03May Active 1 tablet Once a day 2017 Results No Known Results Summary Purpose eClinicalWorks Submission
--- OUTSIDE RECORDS SUMMARY | 2019-02-05 09:30 | XMS REPORT ---
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
--- OUTSIDE RECORDS SUMMARY | 2019-02-05 09:30 | XMS REPORT ---
:1930 [address] Care Team Providers Name Role [...] End Status Dosage System Date Date Augmentin [facility] 57946073681 875-125 MG Active 1 tablet Orally Twice daily Keflex [facility] 91064888104 500 MG Orally Active 1 capsule every 12 hrs Diltiazem HCl ER [facility] 59278055529 360 MG Orally Sep 03, Active 1 tablet Coated Beads Once a day 2017 Myrbetriq [facility] 75425372688 25 MG Orally Active 1 tablet Once a day Myrbetriq [facility] 81242871691 25 mg Orally Sep 03May Active 1 tablet Once a day 2017 Loratadine [facility] 60890557560 10 MG Orally Active 1 tablet Once daily Aspir-Low [facility] 97000044676 81 MG Orally Active 1 tablet Once a day Biaxin [facility] 34606389569 500 MG Orally Active 1 tablet every 12 hrs ProAir HFA [facility] 84598396844 108 (90 Base) Active 2 puffs as MCG/ACT needed for Inhalation sob or every 4-6 hrs wheezing Verapamil HCl ER [facility] 75888798910 120 MG Orally Active 1 capsule Once a day (SR) per Sendi Colmenares Oxybutynin [facility] 37378520790 10 MG Active TAKE ONE Chloride ER (1) TABLET(S) BY MOUTH ONCE A DAY. Plavix [facility] 87953944858 75 MG Orally Active 1 tablet Once daily Prolia [facility] 74236299401 60 MG/ML March Active as Subcutaneous 1 2017 16, directed injection every 2019 6 months Vitamin E ND 52801991983 400 UNIT Orally Active 1 tablet Once daily Symbicort [facility] 42744138689 160-4.5 MCG/ACT Active 2 puffs Inhalation Twice a day Advair Diskus [facility] [address]-08 250-50 MCG/DOSE Active not Inhalation defined Robaxin [facility] 82469801920 500 MG Orally Active 1.5 every 4 hrs tablets Flonase [facility] 26409208740 50 MCG/ACT Active 2 sprays Nasally Once a day ProAir HFA [facility] 03913718458 108 (90 Base) Sep 03, Active 2 puffs as MCG/ACT 2017 needed Inhalation every 4-6 hrs Lyrica [facility] 91649803070 50 MG Orally Active 1 capsule Once to twice daily as needed for pain Nitroglycerin [facility] 77610316118 0.4 MG Active not Sublingual defined Doxycycline [facility] 78073811185 100 MG Orally Active 1 capsule Hyclate Twice a day x10 days S62-Tcoxvn [facility] 09289354928 1 MG Orally Active 1 tablet Once daily (1,000 mcg) Pantoprazole [facility] 31735134654 40 MG Orally Active 1 tablet Sodium Once daily Synthroid ND 69464497629 25 MCG Orally Active 1 tablet Once a day on an empty stomach in the morning Folic Acid [facility] 90663327113 1 MG Orally Active 1 tablet Once a day Ferrous Sulfate [facility] 00065353430 325 (65 Fe) MG Active 1 tablet Orally Once a day Simvastatin ND 51103644069 20 mg Orally Active 1 tablet Once a day in the evening Results No Known Results Summary Purpose eClinicalWorks Submission
--- OUTSIDE RECORDS SUMMARY | 2019-02-05 09:30 | XMS REPORT ---
[...] System Date Date Diltiazem HCl ER ND 17091529452 360 MG Orally Sep 03, Active 1 tablet Coated Beads Once a day 2017 Loratadine ND 15547720708 10 MG Orally Active 1 tablet Once daily Oxybutynin ND 29749426167 10 MG Active TAKE ONE Chloride ER (1) TABLET(S) BY MOUTH ONCE A DAY. J37-Srsvuf ND 26360228803 1 MG Orally Active 1 tablet Once daily (1,000 mcg) ProAir HFA [facility] 34811060565 108 (90 Base) Sep 03, Active 2 puffs as MCG/ACT 2018 needed Inhalation every 4-6 hrs Keflex [facility] 42532635638 500 MG Orally Active 1 capsule every 12 hrs Doxycycline ND 79940417427 100 MG Orally Active 1 capsule Hyclate Twice a day x10 days Simvastatin [facility] 47698329429 20 mg Orally Active 1 tablet Once a day in the evening Vitamin E [facility] 29140403863 400 UNIT Orally Active 1 tablet Once daily Pantoprazole [facility] 66500519403 40 MG Orally Active 1 tablet Sodium Once daily Myrbetriq [facility] 96967082461 25 MG Orally Active 1 tablet Once a day Lyrica [facility] 01785985969 50 MG Orally Active 1 capsule Once to twice daily as needed for pain Biaxin [facility] 52947977415 500 MG Orally Active 1 tablet every 12 hrs Augmentin [facility] 40221388877 875-125 MG Active 1 tablet Orally Twice daily Synthroid [facility] 53945787319 25 MCG Orally Active 1 tablet Once a day on an empty stomach in the morning Myrbetriq [facility] 66495346823 25 mg Orally Sep 03May Active 1 tablet Once a day 2017 Ferrous Sulfate [facility] 03199068189 325 (65 Fe) MG Active 1 tablet Orally Once a day Advair Diskus [facility] [address]-35 250-50 MCG/DOSE Active not Inhalation defined Flonase [facility] 57515502569 50 MCG/ACT Active 2 sprays Nasally Once a day Verapamil HCl ER [facility] 06894507408 120 MG Orally Active 1 capsule Once a day (SR) per Sendi Colmenares Prolia [facility] 54234158863 60 MG/ML March Active as Subcutaneous 1 2017 16, directed injection every 2019 6 months Robaxin [facility] 87997921992 500 MG Orally Active 1.5 every 4 hrs tablets Plavix [facility] 65953081341 75 MG Orally Active 1 tablet Once daily Folic Acid [facility] 60984888628 1 MG Orally Active 1 tablet Once a day ProAir HFA [facility] 64908202135 108 (90 Base) Active 2 puffs as MCG/ACT needed for Inhalation sob or every 4-6 hrs wheezing Aspir-Low [facility] 00313299703 81 MG Orally Active 1 tablet Once a day Nitroglycerin [facility] 46089099472 0.4 MG Active not Sublingual defined Symbicort [facility] 38507414241 160-4.5 MCG/ACT Active 2 puffs Inhalation Twice a day Results No Known Results Summary Purpose eClinicalWorks Submission
--- OUTSIDE RECORDS SUMMARY | 2019-02-05 09:30 | XMS REPORT ---
[...] Subcutaneous mass of neck R22.1 Active Assessment Osteoporosis, unspecified M81.0 Active osteoporosis type, unspecified pathological fracture presence Problem Contusion of right upper S40.021A Active [...]
--- OUTSIDE RECORDS SUMMARY | 2019-02-05 09:30 | XMS REPORT ---
[...] Start End Date Status [facility] 33839945335 60 MG/ML March 13May 16, Active as directed Subcutaneous 2017 injection every 6 months Results No Known Results Summary Purpose eClinicalWorks Submission
[2019-02-05 10:32] LABS: Absolute Lymphocytes (CBC) 1.2 K/uL (0.7-4.9); Absolute Monocytes 0.6 K/uL (0.1-1.3); Absolute Neutrophil 2.5 K/uL (1.8-8.0); Basophils % 0.4 % (0-1.3); Eosinophils % 14.3 % (0-4.4); Hematocrit 35.8 % (36.0-45.0); Lymphocytes % 24.7 % (15.3-44.8); MPV 8.6 fL (7.6-11.3); Monocytes % 11.3 % (3.3-12.3); RBC Red Blood Cell Count 3.75 M/uL (3.86-4.86)
[2019-02-05 11:04] LABS: Albumin 3.3 g/dL (3.4-5.0); Bilirubin Direct 0.2 mg/dL (0-0.2); Bilirubin Total 0.7 mg/dL (0.2-1.0); Potassium 4.3 mmol/L (3.5-5.1); Protein, Total 6.7 g/dL (6.4-8.2)
--- NOTE | 2019-02-05 12:04 | RAD REPORT ---
EXAM DESCRIPTION: CT - Abdomen Pelvis W Contrast - 02/05/2019 11:51 am CLINICAL HISTORY: Right upper quadrant pain COMPARISON: Modified barium swallow February 02, CT study May 2017 TECHNIQUE: Biphasic, helical CT imaging of the abdomen and pelvis was performed following 100 ml non -ionic IV contrast. Contrast is present in the colon. This is possibly from the modified barium swall ow [address] scans are performed using dose optimization technique as appropriate and may include automated exposure control or mA/KV adjustment according to patient size. FINDINGS: No suspicious findings in the lung bases. The liver, spleen, and pancreas show no suspicious findings. Gallbladder and biliary tree are also wi thout suspicious finding. Symmetric renal function is seen with no hydronephrosis or suspicious renal mass. No pyelonephritis o r acute parenchymal process. No bladder abnormalities. No adrenal abnormalities. No content is present within the lumen of the stomach. No gastric dilatation, true wall thickening or mass suspected. No dilated small bowel loops. Patient has a mobile cecum positioned in the right upp er quadrant of the abdomen. No colon dilatation. There is a large amount of contrast in the colon. Pa tient has a prominent left-sided diverticulosis pattern without diverticulitis. Mass or acute colon p rocess is not confirmed. No free air, free fluid or inflammatory stranding. No hernia, mass or bulky lymphadenopathy. Uteru s is absent. Ovaries are absent or atrophic. Bony degenerative changes are present. 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 There i s significant compression fracture of the treated T12 and L1 bodies. No active bone process confirmed . Very dense arterial tree calcifications are present. 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 This is similar to comparison. Low-density retrocrural mass not clearly different from comparison. This is not regarded as significa nt. IMPRESSION: No abnormality to explain the right upper quadrant pain symptoms. Patient has a prominent left-sided diverticulosis pattern without diverticulitis or acute colon proce ss. Gallbladder, biliary tree and pancreas within normal limits and stable. No acute finding.
[2019-02-05] MEDS ORDERED: DICYCLOMINE HCL 10 MG CAP ONE (12:40)
[2019-02-05] MEDS ORDERED: ACETAMINOPHEN 325 MG TABLET ONE (12:40)
[2019-02-05 12:43] LABS: Urine Blood NEGATIVE (NEG); Urine Glucose NEGATIVE (NEG); Urine Protein NEGATIVE (NEG); Urine pH 6.5 (5.0-7.0)
--- NOTE | 2019-02-05 12:51 | ER ---
Nurse's Notes [facility] Name: Mariluz Lau Age: 88 yrs Sex: Female : 1930 Arrival Date: 02/05/2019 Time: 09:27 Bed 20 Private MD: Sophia Pham Diagnosis: Unspecified abdominal pain;Urinary tract infection, site not specified Presentation: 02/05 09:51 Presenting complaint: RUQ pain and nausea x 1 hr. Transition of care: patient was not hb received from another setting of care. Onset of symptoms was February 05, 2019. Risk Assessment: Do you want to hurt yourself or someone else? Patient reports no desire to harm self or others. Care prior to arrival: None. 09:51 Method Of Arrival: Wheelchair hb 09:51 Acuity: JESSICA 3 hb 10:15 Initial Sepsis Screen: Does the patient meet any 2 criteria? No. Patient's initial hb sepsis screen is negative. Does the patient have a suspected source of infection? No. Patient's initial sepsis screen is negative. Historical: - Allergies: 09:52 Codeine; hb 09:52 Flexeril; hb 09:52 Tape; hb - Immunization history:: Adult Immunizations up to date. - Social history:: Smoking status: Patient/guardian denies using tobacco. - Ebola Screening: : No symptoms or risks identified at this time. Screenin:30 Abuse screen: Denies threats or abuse. Nutritional screening: No deficits noted. em Tuberculosis screening: No symptoms or risk factors identified. Fall Risk None identified. Assessment: 10:30 General: Appears in no apparent distress. comfortable, Behavior is calm, cooperative. em Pain: Complains of pain in right lower quadrant Pain currently is 3 out of 10 on a pain scale. Quality of pain is described as sharp, Is intermittent. Neuro: Level of Consciousness is awake, alert, obeys commands, Oriented to person, place, time, situation. Cardiovascular: Capillary refill < 3 seconds Patient's skin is warm and dry. Respiratory: Airway is patent Breath sounds are clear bilaterally. GI: Abdomen is flat, Bowel sounds present X 4 quads. Abd is soft X 4 quads Abdomen is tender to palpation in right lower quadrant Patient currently denies diarrhea, nausea, vomiting. : Denies burning with urination. Derm: Skin is intact, is fragile, Skin is pink, warm \T\ dry. Musculoskeletal: Capillary refill < 3 seconds, Range of motion: intact in all extremities. 10:45 Reassessment: I agree with previous assessment. hb 12:00 Reassessment: Patient appears in no apparent distress at this time. Patient and/or em family updated on plan of care and expected duration. Pain level reassessed. Patient is alert, oriented x 3, equal unlabored respirations, skin warm/dry/pink. 13:16 Reassessment: Patient appears in no apparent distress at this time. Patient and/or em family updated on plan of care and expected duration. Pain level reassessed. Patient is alert, oriented x 3, equal unlabored respirations, skin warm/dry/pink. Patient states feeling better. Patient states symptoms have improved. Vital Signs: 09:51 BP 162 / 70; Pulse 92; Resp 18; Temp 98.2; Pulse Ox 100% on R/A; Pain 9/10; hb ED Course: 09:27 Patient arrived in ED. as 09:28 Sophia Pham MD is Private Physician. as 09:51 Triage completed. hb 09:52 Arm band placed on. hb 09:58 Tone Soto PA is PHCP. jmm 09:58 Ramon Frausto MD is Attending Physician. jmm 10:20 Initial lab(s) drawn, by me, sent to lab. Inserted saline lock: 22 gauge in right jb1 antecubital area, using aseptic technique. Blood collected. 10:23 Anuel Navarrete LVN is Primary Nurse. em 10:30 Patient has correct armband on for positive identification. Placed in gown. Bed in low em position. Call light in reach. Side rails up X2. Adult w/ patient. Pulse ox on. NIBP on. 11:[address] via stretcher. vr 11:49 CT completed. Patient tolerated procedure well. Patient moved to CT via stretcher. sj Patient moved back from CT. 11:51 CT Abd/Pelvis - W/Contrast In Process Unspecified. EDMS 13:14 No provider procedures requiring assistance completed. IV discontinued, intact, em bleeding controlled, No redness/swelling at site. Pressure dressing applied. Administered Medications: 12:33 Drug: Bentyl 20 mg Route: PO; em 13:17 Follow up: Response: No adverse reaction em 12:33 Drug: Tylenol 650 mg Route: PO; em 13:17 Follow up: Response: No adverse reaction; Pain is decreased em Outcome: 12:50 Discharge ordered by . marybeth 13:14 Discharged to home via wheelchair. em 13:14 Condition: good 13:14 Discharge instructions given to patient, family, Instructed on discharge instructions, follow up and referral plans. medication usage, Demonstrated understanding of instructions, follow-up care, medications, Prescriptions given X 2. 13:17 Patient left the ED. em Signatures: Dispatcher [employer] Marcell Torres1 Tone Soto PA PA jmm Jones, Susan sj Munoz, Edgar, ABSORPTION AND ADSORPTION ENGINEER ABSORPTION AND ADSORPTION ENGINEER em Karrie Ferrell Victoria vr Baxter, Heather, EVERT RN
--- NOTE | 2019-02-05 12:51 | EDPHYS ---
Physician Documentation [facility] Name: Mariluz Lau Age: 88 yrs Sex: Female : 1930 Arrival Date: 02/05/2019 Time: 09:27 Bed 20 Private MD: Sophia Pham ED Physician Ramon Frausto HPI: 02/05 10:08 This 88 yrs old Female presents to ER via Wheelchair with complaints of jmm Abdominal Pain. 10:08 The patient presents with abdominal pain. Onset: The symptoms/episode began/occurred jmm today. The symptoms do not radiate. Associated signs and symptoms: Pertinent negatives: diarrhea, fever, vomiting. This is an 88 year old female that presents to the Ed with complaints of right lower abdominal pain beginning earlier today. Patient denies vomiting, fever, diarrhea. . Historical: - Allergies: 09:52 Codeine; hb 09:52 Flexeril; hb 09:52 Tape; hb - Immunization history:: Adult Immunizations up to date. - Social history:: Smoking status: Patient/guardian denies using tobacco. - Ebola Screening: : No symptoms or risks identified at this time. ROS: 10:08 Constitutional: Negative for fever, chills, and weight loss, Cardiovascular: Negative jmm for chest pain, palpitations, and edema, Respiratory: Negative for shortness of breath, cough, wheezing, and pleuritic chest pain. 10:08 Abdomen/GI: Positive for abdominal pain. 10:08 All other systems are negative. Exam: 10:08 Constitutional: This is a well developed, well nourished patient who is awake, alert, jmm and in no acute distress. Head/Face: atraumatic. Eyes: EOMI, no conjunctival erythema appreciated ENT: Moist Mucus Membranes Neck: Trachea midline, Supple Chest/axilla: Normal chest wall appearance and motion. Cardiovascular: Regular rate and rhythm. No edema appreciated 10:08 Back: Normal ROM Skin: General appearance color normal MS/ Extremity: Moves all extremities, no obvious deformities appreciated, no edema noted to the lower extremities Neuro: Awake and alert, normal gait Psych: Behavior is normal, Mood is normal, Patient is cooperative and pleasant 10:08 Abdomen/GI: Inspection: abdomen appears normal, Bowel sounds: normal, Palpation: soft, mild abdominal tenderness, in the right lower quadrant. Vital Signs: 09:51 BP 162 / 70; Pulse 92; Resp 18; Temp 98.2; Pulse Ox 100% on R/A; Pain 9/10; hb MDM: 10:08 Patient medically screened. [facility] 12:23 Data reviewed: vital signs, nurses notes. Counseling: I had a detailed discussion with [facility] the patient and/or guardian regarding: the historical points, exam findings, and any diagnostic results supporting the discharge/admit diagnosis, lab results, radiology results, the need for outpatient follow up, to return to the emergency department if symptoms worsen or persist or if there are any questions or concerns that arise at home. ED course: Ct negative for an acute process. Labs unremarkable. I discussed with the patient the need to follow up with GI for further evaluation. Patient is otherwise given strict return precautions. patient understood and agrees with the plan of care. . 02/05 10:08 Order name: Basic Metabolic Panel; Complete Time: 11:06 [facility] 02/05 10:08 Order name: CBC with Diff; Complete Time: 10:52 [facility] 02/05 10:08 Order name: Creatinine for Radiology; Complete Time: 11:06 [facility] 02/05 10:08 Order name: Hepatic Function; Complete Time: 11:06 [facility] 02/05 10:08 Order name: Lipase; Complete Time: 11:06 [facility] 02/05 12:31 Order name: Urine Dipstick--Ancillary (enter results); Complete Time: 12:47 02/05 10:08 Order name: IV Saline Lock; Complete Time: 10:24 [facility] 02/05 10:08 Order name: Labs collected and sent; Complete Time: 10:24 [facility] 02/05 10:09 Order name: CT Abd/Pelvis - W/Contrast; Complete Time: 12:06 [facility] 02/05 12:23 Order name: Urine Dipstick-Ancillary (obtain specimen); Complete Time: 12:29 [facility] Administered Medications: 12:33 Drug: Bentyl 20 mg Route: PO; em 13:17 Follow up: Response: No adverse reaction em 12:33 Drug: Tylenol 650 mg Route: PO; em 13:17 Follow up: Response: No adverse reaction; Pain is decreased em Disposition: 15:24 Co-signature as Attending Physician, Ramon Frausto MD I agree with the assessment and kdr plan of care. Disposition: 02/05/19 12:50 Discharged to Home. Impression: Unspecified abdominal pain, Urinary tract infection, site not specified. - Condition is Stable. - Discharge Instructions: Abdominal Pain, Adult, Urinary Tract Infection, Adult. - Prescriptions for Bentyl 20 mg Oral Tablet - take 1 tablet by ORAL route every 6 hours As needed; 20 tablet. Keflex 500 mg Oral Capsule - take 1 capsule by ORAL route every 12 hours for 10 days; 20 capsule. - Medication Reconciliation Form, Thank You Letter, Antibiotic Education, Prescription Opioid Use form. - Follow up: Private Physician; When: 2 - 3 days; Reason: Recheck today's complaints, Continuance of care, Re-evaluation by your physician. Signatures: Dispatcher [employer] EDRamon Brady MD MD kdr Mickail, Joel, PA PA jmm Munoz, Edgar, CEMENT STORAGE WORKER CEMENT STORAGE WORKER em Kriss Herbert, EVERT RN Corrections: (The following items were deleted from the chart) 13:17 12:50 02/05/2019 12:50 Discharged to Home. Impression: Unspecified abdominal pain; em Urinary tract infection, site not specified. Condition is Stable. Forms are Medication Reconciliation Form, Thank You Letter, Antibiotic Education, Prescription Opioid Use. Follow up: Private Physician; When: 2 - 3 days; Reason: Recheck today's complaints, Continuance of care, Re-evaluation by your physician. [email or web address]
[2019-02-05 13:24] VITALS: BP 162/70; TEMP 98.2; O2SAT 100
== END 2019-02-05 13:17 | disposition home or self-care (01) ==
LOC: ER 09:26
DX: N39.0 Urinary tract infection, site not specified (principal); Z88.5 Allergy status to narcotic agent; Z88.8 Allergy status to other drugs, medicaments and biological substances; Z91.048 Other nonmedicinal substance allergy status
CPT/HCPCS: 85025; 80048; 36415; 80076; 81003; 83690; 74177; 99284; Q9967

== ENCOUNTER 2019-02-07 16:33 | Emergency (ER) | payer OTHER ==
--- OUTSIDE RECORDS SUMMARY | 2019-02-07 16:34 | XMS REPORT ---
[...] Status Dosage System Date Date Myrbetriq [facility] 09664793288 25 MG Orally Active 1 tablet Once a day Verapamil HCl ER [facility] 25165654631 120 MG Orally Active 1 capsule Once a day (SR) per Sendkali Colmenares Advair Diskus [facility] [address]-99 250-50 MCG/DOSE Active not Inhalation defined Doxycycline [facility] 23121199746 100 MG Orally Active 1 capsule Hyclate Twice a day x10 days Oxybutynin [facility] 40315701959 10 MG Orally Oct Active 1 tablet Chloride ER Once a day [address] [facility] 34762491289 500 MG Orally Active 1.5 every 4 hrs tablets Diltiazem HCl ER [facility] [address]-96 360 MG Orally Active 1 capsule Once a day Pantoprazole [facility] 01427272048 40 MG Orally Active 1 tablet Sodium Once daily Biaxin ND 39945729283 500 MG Orally Active 1 tablet every [address] [facility] 15947191835 160-4.5 MCG/ACT Active 2 puffs Inhalation Twice a day Plavix [facility] 88327047546 75 MG Orally Active 1 tablet Once daily ProAir HFA [facility] 67238902523 108 (90 Base) Active 2 puffs as MCG/ACT needed for Inhalation sob or every 4-6 hrs wheezing Nitroglycerin [facility] 02998026625 0.4 MG Active not Sublingual defined Simvastatin [facility] 28770538183 20 mg Orally Active 1 tablet Once a day in the evening Ferrous Sulfate [facility] 73785726387 325 (65 Fe) MG Active 1 tablet Orally Once a day Augmentin [facility] 51262438238 875-125 MG Active 1 tablet Orally Twice daily M67-Dzuvog [facility] [address] Orally Once Active 1 tablet daily Prolia [facility] 38320514458 60 MG/ML Active not Subcutaneous defined Synthroid [facility] 38673918073 25 MCG Orally Active 1 tablet Once a day on an empty stomach in the morning Keflex [facility] 69446956212 500 MG Orally Active 1 capsule every 12 hrs Folic Acid ND 03085922617 1 MG Orally Active 1 tablet Once a day Aspir-Low [facility] 73015737903 81 MG Orally Active 1 tablet Once a day Results No Known Results Summary Purpose eClinicalWorks Submission
--- OUTSIDE RECORDS SUMMARY | 2019-02-07 16:34 | XMS REPORT ---
:1930 [facility] Address [address] [place] [address] Dr. Hanley [address] [place] [address] Care Team Providers Name Role Phone Unavailable Unavailable Unavailable Problems This patient has no known problems. Allergies, Adverse Reactions, Alerts This patient has no known allergies or adverse reactions. Medications This patient has no known medications.
--- OUTSIDE RECORDS SUMMARY | 2019-02-07 16:35 | XMS REPORT ---
[...] End Date Status Dosage System Date Prolia [facility] 10090394501 60 MG/ML March 13, Sep 04, Active as directed Subcutaneous 2017 injection every 6 months Results No Known Results Summary Purpose eClinicalWorks Submission
--- OUTSIDE RECORDS SUMMARY | 2019-02-07 16:35 | XMS REPORT ---
[...] Medications Results No Known Results Summary Purpose [employer] Submission
--- OUTSIDE RECORDS SUMMARY | 2019-02-07 16:35 | XMS REPORT ---
[...] End Date Status Dosage System Date Prolia [facility] 69952555661 60 MG/ML April 09Oct 01, Active as directed Subcutaneous 2017 2018 every 6 months Results No Known Results Summary Purpose eClinicalWorks Submission
--- OUTSIDE RECORDS SUMMARY | 2019-02-07 16:35 | XMS REPORT ---
[...] Status Dosage System Date Date Simvastatin ND 03174861845 20 mg Orally Active 1 tablet Once a day in the evening Verapamil HCl ER ND 19610727994 120 MG Orally Active 1 capsule Once a day (SR) per Sendi Colmenares Prolia [facility] 91274084631 60 MG/ML April 09Oct Active as Subcutaneous 2017 12, directed every 6 months 2018 Prolia ND 36390054211 60 MG/ML March Active as Subcutaneous 2017 05, directed injection every [address] [facility] 57644510151 160-4.5 MCG/ACT Active 2 puffs Inhalation Twice a day Advair Diskus [facility] [address]-87 250-50 MCG/DOSE Active not Inhalation defined Nitroglycerin [facility] 51274512764 0.4 MG Active not Sublingual defined Keflex ND 47618214065 500 MG Orally Active 1 capsule every [address] [facility] 66026617527 108 (90 Base) Active 2 puffs as MCG/ACT needed for Inhalation sob or every 4-[address] [facility] 24594300639 10 MG Active TAKE ONE Chloride ER (1) TABLET(S) BY MOUTH ONCE A DAY. Robaxin [facility] 00547347114 500 MG Orally Active 1.5 every [address] [facility] 53244648440 500 MG Orally Active 1 tablet every 12 hrs Myrbetriq ND 35180703262 25 MG Orally Active 1 tablet Once a day Ferrous Sulfate [facility] 69059201071 325 (65 Fe) MG Active 1 tablet Orally Once a day Aspir-Low ND 93875687458 81 MG Orally Active 1 tablet Once a day Prolia [facility] 39952271872 60 MG/ML Active not Subcutaneous defined Taztia XT [facility] 15331718750 360 MG Active TAKE ONE (1) CAPSULE(S) BY MOUTH ONCE A DAY. Plavix [facility] 26887817263 75 MG Orally Active 1 tablet Once daily Folic Acid ND 25612198021 1 MG Orally Active 1 tablet Once a day Pantoprazole [facility] 34107967276 40 MG Orally Active 1 tablet Sodium Once daily Synthroid [facility] 41435375009 25 MCG Active TAKE ONE (1) TABLET(S) BY MOUTH ONCE A DAY. [id number]-[id number] [facility] [address] Orally Once Active [address] [facility] 62600041331 875-125 MG Active 1 tablet Orally Twice daily Doxycycline ND 42845711215 100 MG Orally Active 1 capsule Hyclate Twice a day x10 days Results No Known Results Summary Purpose eClinicalWorks Submission
--- OUTSIDE RECORDS SUMMARY | 2019-02-07 16:35 | XMS REPORT ---
[...] Medications Results No Known Results Summary Purpose [employer] Submission
--- OUTSIDE RECORDS SUMMARY | 2019-02-07 16:35 | XMS REPORT ---
:1930 [facility] Care Team Providers Name Role [...] Start End Status Dosage System Date Date G59-[id number] [facility] [address] Orally Once Active 1 tablet daily Verapamil HCl ER ND 27453875346 120 MG Orally Active 1 capsule Once a day (SR) per Sendi Colmenares Prolia [facility] 71137808705 60 MG/ML Active not Subcutaneous defined Robaxin [facility] 86971877460 500 MG Orally Active 1.5 every 4 hrs tablets Taztia XT [facility] 62553103869 360 MG Active TAKE ONE (1) CAPSULE(S) BY MOUTH ONCE A DAY. Biaxin ND 97026560192 500 MG Orally Active 1 tablet every 12 hrs Keflex ND 65134618761 500 MG Orally Active 1 capsule every 12 hrs Myrbetriq ND 60381451089 25 MG Orally Active 1 tablet Once a day Ferrous Sulfate ND 30877187659 325 (65 Fe) MG Active 1 tablet Orally Once a day Synthroid ND 13062570284 25 MCG Orally Active 1 tablet Once a day on an empty stomach in the morning Prolia [facility] 98637859284 60 MG/ML March Active as Subcutaneous 1 2017 05, directed injection every 2019 6 months Prolia ND 70223850984 60 MG/ML April 09Oct Active as Subcutaneous 2017 12, directed every 6 months 2019 Augmentin [facility] 83433363510 875-125 MG Active 1 tablet Orally Twice daily Folic Acid [facility] 43590177174 1 MG Orally Active 1 tablet Once a day Pantoprazole [facility] 59278901490 40 MG Orally Active 1 tablet Sodium Once daily Diltiazem HCl ER [facility] [address]-48 360 MG Orally Active 1 capsule Once a day Doxycycline [facility] 87600189069 100 MG Orally Active 1 capsule Hyclate Twice a day x10 days Aspir-Low [facility] 29260234292 81 MG Orally Active 1 tablet Once a day Nitroglycerin [facility] 42550292949 0.4 MG Active not Sublingual defined ProAir HFA [facility] 33118140876 108 (90 Base) Active 2 puffs as MCG/ACT needed for Inhalation sob or every 4-6 hrs wheezing Simvastatin [facility] 77009410362 20 mg Orally Active 1 tablet Once a day in the evening Symbicort [facility] 74829695816 160-4.5 MCG/ACT Active 2 puffs Inhalation Twice a day Oxybutynin [facility] 27704981988 10 MG Orally Oct Active 1 tablet Chloride ER Once a day 2017 Plavix [facility] 59462968869 75 MG Orally Active 1 tablet Once daily Advair Diskus [facility] [address]-32 250-50 MCG/DOSE Active not Inhalation defined Results No Known Results Summary Purpose eClinicalWorks Submission
--- OUTSIDE RECORDS SUMMARY | 2019-02-07 16:35 | XMS REPORT ---
[...] Medications Results No Known Results Summary Purpose [employer] Submission
--- OUTSIDE RECORDS SUMMARY | 2019-02-07 16:35 | XMS REPORT ---
[...] End Status Dosage System Date Date Robaxin [facility] 48575584531 500 MG Orally Active 1.5 every 4 hrs tablets ProAir HFA [facility] 63657677361 108 (90 Base) Sep 03, Active 2 puffs as MCG/ACT 2018 needed Inhalation every 4-6 hrs Diltiazem HCl ER ND 61921783990 360 MG Orally Sep 03, Active 1 tablet Coated Beads Once a day 2017 Simvastatin ND 86191637461 20 mg Orally Active 1 tablet Once a day in the evening Oxybutynin ND 39423446762 10 MG Active TAKE ONE Chloride ER (1) TABLET(S) BY MOUTH ONCE A DAY. Folic Acid ND 07653866376 1 MG Orally Active 1 tablet Once a day Doxycycline ND 81954770974 100 MG Orally Active 1 capsule Hyclate Twice a day x10 days Nitroglycerin ND 07748738908 0.4 MG Active not Sublingual defined Plavix [facility] 10678128896 75 MG Orally Active 1 tablet Once daily Myrbetriq ND 24149688111 25 MG Orally Active 1 tablet Once a day Taztia XT ND 90033801192 360 MG Active TAKE ONE (1) CAPSULE(S) BY MOUTH ONCE A DAY. Prolia [facility] 79030216303 60 MG/ML March Active as Subcutaneous 1 2017 05, directed injection every 2018 6 months Keflex ND 06144369698 500 MG Orally Active 1 capsule every 12 hrs Biaxin ND 56305306684 500 MG Orally Active 1 tablet every 12 hrs Ferrous Sulfate [facility] 90200239309 325 (65 Fe) MG Active 1 tablet Orally Once a day Aspir-Low ND 99084465496 81 MG Orally Active 1 tablet Once a day Augmentin ND 89882146547 875-125 MG Active 1 tablet Orally Twice daily Synthroid ND 05322320474 25 MCG Orally Active 1 tablet Once a day on an empty stomach in the morning Myrbetriq ND 95659468905 25 mg Orally Sep 03May Active 1 tablet Once a day 2017 ProAir HFA [facility] 61959925795 108 (90 Base) Active 2 puffs as MCG/ACT needed for Inhalation sob or every 4-6 hrs wheezing Pantoprazole ND 74983753850 40 MG Orally Active 1 tablet Sodium Once daily Prolia [facility] 64786664823 60 MG/ML Active not [place]cutaneous [place] [address]-78 250-50 MCG/DOSE Active not Inhalation defined C06-Ncsxoz [facility] 266[address] Orally Once Active 1 tablet daily Verapamil HCl ER ND 78978839368 120 MG Orally Active 1 capsule Once a day (SR) per Sendi Colmenares Symbicort [facility] 27598355068 160-4.5 MCG/ACT Active 2 puffs Inhalation Twice a day Results No Known Results Summary Purpose eClinicalWorks Submission
--- OUTSIDE RECORDS SUMMARY | 2019-02-07 16:36 | XMS REPORT ---
[...] System Date Date Diltiazem HCl ER ND 96169691861 360 MG Orally Sep 03, Active 1 tablet Coated Beads Once a day 2017 Loratadine ND 30774639383 10 MG Orally Active 1 tablet Once daily Oxybutynin ND 57115695526 10 MG Active TAKE ONE Chloride ER (1) TABLET(S) BY MOUTH ONCE A DAY. W16-Difxii ND 58856230148 1 MG Orally Active 1 tablet Once daily (1,000 mcg) ProAir HFA [facility] 84902653631 108 (90 Base) Sep 03, Active 2 puffs as MCG/ACT 2018 needed Inhalation every 4-6 hrs Keflex [facility] 60815746103 500 MG Orally Active 1 capsule every 12 hrs Doxycycline ND 60496241650 100 MG Orally Active 1 capsule Hyclate Twice a day x10 days Simvastatin [facility] 11654301643 20 mg Orally Active 1 tablet Once a day in the evening Vitamin E [facility] 69721974042 400 UNIT Orally Active 1 tablet Once daily Pantoprazole [facility] 67205657721 40 MG Orally Active 1 tablet Sodium Once daily Myrbetriq [facility] 44840163726 25 MG Orally Active 1 tablet Once a day Lyrica [facility] 44786157343 50 MG Orally Active 1 capsule Once to twice daily as needed for pain Biaxin [facility] 92428434723 500 MG Orally Active 1 tablet every 12 hrs Augmentin [facility] 75426689714 875-125 MG Active 1 tablet Orally Twice daily Synthroid [facility] 38227424890 25 MCG Orally Active 1 tablet Once a day on an empty stomach in the morning Myrbetriq [facility] 44912051494 25 mg Orally Sep 03May Active 1 tablet Once a day 2017 Ferrous Sulfate [facility] 07630961990 325 (65 Fe) MG Active 1 tablet Orally Once a day Advair Diskus [facility] [address]-06 250-50 MCG/DOSE Active not Inhalation defined Flonase [facility] 47399935870 50 MCG/ACT Active 2 sprays Nasally Once a day Verapamil HCl ER [facility] 59540153180 120 MG Orally Active 1 capsule Once a day (SR) per Sendi Colmenares Prolia [facility] 37182371150 60 MG/ML March Active as Subcutaneous 1 2017 16, directed injection every 2019 6 months Robaxin [facility] 31867086534 500 MG Orally Active 1.5 every 4 hrs tablets Plavix [facility] 17585176757 75 MG Orally Active 1 tablet Once daily Folic Acid [facility] 38899713636 1 MG Orally Active 1 tablet Once a day ProAir HFA [facility] 17781271454 108 (90 Base) Active 2 puffs as MCG/ACT needed for Inhalation sob or every 4-6 hrs wheezing Aspir-Low [facility] 69217017162 81 MG Orally Active 1 tablet Once a day Nitroglycerin [facility] 19709499555 0.4 MG Active not Sublingual defined Symbicort [facility] 64953362544 160-4.5 MCG/ACT Active 2 puffs Inhalation Twice a day Results No Known Results Summary Purpose eClinicalWorks Submission
--- OUTSIDE RECORDS SUMMARY | 2019-02-07 16:36 | XMS REPORT ---
:1930 [facility] Providers Name [...] End Status Dosage System Date Date Augmentin [facility] 01188165589 875-125 MG Active 1 tablet Orally Twice daily Keflex [facility] 95719752594 500 MG Orally Active 1 capsule every 12 hrs Diltiazem HCl ER [facility] 85420261892 360 MG Orally Sep 03, Active 1 tablet Coated Beads Once a day 2017 Myrbetriq [facility] 65599932305 25 MG Orally Active 1 tablet Once a day Myrbetriq [facility] 68080313050 25 mg Orally Sep 03May Active 1 tablet Once a day 2017 Loratadine [facility] 27117729812 10 MG Orally Active 1 tablet Once daily Aspir-Low [facility] 45566841848 81 MG Orally Active 1 tablet Once a day Biaxin [facility] 96101170402 500 MG Orally Active 1 tablet every 12 hrs ProAir HFA [facility] 28897852869 108 (90 Base) Active 2 puffs as MCG/ACT needed for Inhalation sob or every 4-6 hrs wheezing Verapamil HCl ER [facility] 18741493232 120 MG Orally Active 1 capsule Once a day (SR) per Sendi Colmenares Oxybutynin [facility] 70382045749 10 MG Active TAKE ONE Chloride ER (1) TABLET(S) BY MOUTH ONCE A DAY. Plavix [facility] 76178189634 75 MG Orally Active 1 tablet Once daily Prolia [facility] 19750433036 60 MG/ML March Active as Subcutaneous 1 2017 16, directed injection every 2019 6 months Vitamin E ND 55793993971 400 UNIT Orally Active 1 tablet Once daily Symbicort [facility] 77257354166 160-4.5 MCG/ACT Active 2 puffs Inhalation Twice a day Advair Diskus [facility] [address]-46 250-50 MCG/DOSE Active not Inhalation defined Robaxin [facility] 64062576412 500 MG Orally Active 1.5 every 4 hrs tablets Flonase [facility] 82637658668 50 MCG/ACT Active 2 sprays Nasally Once a day ProAir HFA [facility] 43497854259 108 (90 Base) Sep 03, Active 2 puffs as MCG/ACT 2017 needed Inhalation every 4-6 hrs Lyrica [facility] 20643561554 50 MG Orally Active 1 capsule Once to twice daily as needed for pain Nitroglycerin [facility] 92711648676 0.4 MG Active not Sublingual defined Doxycycline [facility] 56121394119 100 MG Orally Active 1 capsule Hyclate Twice a day x10 days D88-Ljeshv [facility] 86440291092 1 MG Orally Active 1 tablet Once daily (1,000 mcg) Pantoprazole [facility] 64848241606 40 MG Orally Active 1 tablet Sodium Once daily Synthroid ND 70267286077 25 MCG Orally Active 1 tablet Once a day on an empty stomach in the morning Folic Acid [facility] 25031499688 1 MG Orally Active 1 tablet Once a day Ferrous Sulfate [facility] 32651106533 325 (65 Fe) MG Active 1 tablet Orally Once a day Simvastatin ND 97207338887 20 mg Orally Active 1 tablet Once a day in the evening Results No Known Results Summary Purpose eClinicalWorks Submission
--- OUTSIDE RECORDS SUMMARY | 2019-02-07 16:36 | XMS REPORT ---
[...] Start End Date Status Dosage System Date [facility] 31095326267 60 MG/ML March 13May 16, Active as directed Subcutaneous 2017 injection every 6 months Results No Known Results Summary Purpose eClinicalWorks Submission
--- OUTSIDE RECORDS SUMMARY | 2019-02-07 16:36 | XMS REPORT ---
[...] End Status Dosage System Date Date Keflex [facility] 97811766928 500 MG Orally Active 1 capsule every 12 hrs Biaxin ND 38514344763 500 MG Orally Active 1 tablet every 12 hrs Myrbetriq ND 09795446453 25 MG Orally Active 1 tablet Once a day ProAir HFA [facility] 40743515857 108 (90 Base) Active 2 puffs as MCG/ACT needed for Inhalation sob or every 4-6 hrs wheezing Ferrous Sulfate ND 81040173255 325 (65 Fe) MG Active 1 tablet Orally Once a day Q08-Jegfxs ND 67133138736 1 MG Orally Active 1 tablet Once daily (1,000 mcg) Oxybutynin [facility] 40312351999 10 MG Active TAKE ONE Chloride ER (1) TABLET(S) BY MOUTH ONCE A DAY. Symbicort [facility] 13899008934 160-4.5 MCG/ACT Active 2 puffs Inhalation Twice a day Lyrica [facility] 49263936880 50 MG Orally Active 1 capsule Once to twice daily as needed for pain Prolia [facility] 73267943994 60 MG/ML March Active as Subcutaneous 1 2017 16, directed injection every 2018 6 months Verapamil HCl ER [facility] 79053186076 120 MG Orally Active 1 capsule Once a day (SR) per Sendi Colmenares Plavix [facility] 91998772581 75 MG Orally Active 1 tablet Once daily Flonase [facility] 69323040908 50 MCG/ACT Active 2 sprays Nasally Once a day Vitamin E [facility] 10988331758 400 UNIT Orally Active 1 tablet Once daily Advair Diskus [facility] [address]-34 250-50 MCG/DOSE Active not Inhalation defined Augmentin [facility] 05691827650 875-125 MG Active 1 tablet Orally Twice daily Aspir-Low [facility] 68674892264 81 MG Orally Active 1 tablet Once a day Loratadine ND 04620977874 10 MG Orally Active 1 tablet Once daily ProAir HFA [facility] 11940751646 108 (90 Base) Sep 03, Active 2 puffs as MCG/ACT 2017 needed Inhalation every 4-6 hrs Pantoprazole [facility] 97833743870 40 MG Orally Active 1 tablet Sodium Once daily Robaxin [facility] 26087210498 500 MG Orally Active 1.5 every 4 hrs tablets Doxycycline [facility] 27622325024 100 MG Orally Active 1 capsule Hyclate Twice a day x10 days Folic Acid ND 55564691505 1 MG Orally Active 1 tablet Once a day Nitroglycerin [facility] 95545111240 0.4 MG Active not Sublingual defined Synthroid [facility] 47729609423 25 MCG Orally Active 1 tablet Once a day on an empty stomach in the morning Diltiazem HCl ER [facility] 78643384561 360 MG Orally Sep 03, Active 1 tablet Coated Beads Once a day 2017 Simvastatin ND 79701789735 20 mg Orally Active 1 tablet Once a day in the evening Myrbetriq [facility] 98847338986 25 mg Orally Sep 03May Active 1 tablet Once a day 2017 Results No Known Results Summary Purpose eClinicalWorks Submission
--- NOTE | 2019-02-07 17:05 | RAD REPORT ---
EXAM DESCRIPTION: CT - Ct Stroke Brain Wo Cont - 02/07/2019 4:57 pm CLINICAL HISTORY: Numbness;Pain Headache, drowsiness, CVA symptomology. COMPARISON: CTFACIAL BONES W MPR dated 01/04/2016; CT-STROKE BRAIN W/O CONTRAST dated 04/03/2015; Chest Single View dated 07/09/2017 TECHNIQUE: All CT scans are performed using dose optimization technique as appropriate and may inclu de automated exposure control or mA/KV adjustment according to patient size. FINDINGS: No intracranial hemorrhage, hydrocephalus or extra-axial fluid collection.Moderate general ized brain atrophy is present with moderate periventricular and deep white matter chronic microvascul ar ischemic changes.No areas of brain edema or evidence of midline shift. The paranasal sinuses and mastoids are clear. The calvarium is intact. IMPRESSION: No acute intracranial abnormality. If there is continued clinical concern for CVA, MR i maging of the brain would be recommended. The findings were discussed with PUJA Hampton on 02/07/2019 at 5 p.m. by telephone.
[2019-02-07 17:16] LABS: Absolute Lymphocytes (CBC) 1.5 K/uL (0.7-4.9); Absolute Monocytes 0.7 K/uL (0.1-1.3); Absolute Neutrophil 2.9 K/uL (1.8-8.0); Basophils % 0.4 % (0-1.3); Eosinophils % 17.9 % (0-4.4); Hematocrit 36.1 % (36.0-45.0); Lymphocytes % 24.8 % (15.3-44.8); MPV 9.1 fL (7.6-11.3); Monocytes % 11.2 % (3.3-12.3); RBC Red Blood Cell Count 3.76 M/uL (3.86-4.86)
[2019-02-07 17:20] LABS: Protime INR 1.08
[2019-02-07 17:31] LABS: Potassium 4.7 mmol/L (3.5-5.1)
[2019-02-07] MEDS ORDERED: ASPIRIN 81 MG CHEWABLE TABLET ONE (17:41)
--- NOTE | 2019-02-07 17:59 | RAD REPORT ---
EXAM DESCRIPTION: RAD - Chest Single View - 02/07/2019 5:52 pm CLINICAL HISTORY: cva Chest pain. COMPARISON: Chest Single View dated 07/09/2017; Chest Single View dated 08/29/2016; CHEST SINGLE VIEW d ated 01/04/2016; CHEST SINGLE VIEW dated 04/03/2015 FINDINGS: Portable technique limits examination quality. The lungs are emphysematous but grossly clear. The heart is normal in size. No displaced fractures.Ao rtic atherosclerosis. Surgical clips are present in the left axillary region. IMPRESSION: No acute intrathoracic process suspected. COPD.
--- NOTE | 2019-02-07 18:52 | ER ---
Nurse's Notes [facility] Name: Mariluz Lau Age: 88 yrs Sex: Female : 1930 Arrival Date: 02/07/2019 Time: 16:35 Bed 2 Private MD: Sophia Pham Diagnosis: Paresthesia of skin;Migraine-Complex Presentation: 02/07 16:51 Presenting complaint: Patient states: Headache to R sabianism that radiates to L sabianism ph that started at approx 1230 today, numbness to R side of mouth and R hand that began approx 30 min GRINDER HARDBOARD, no slurred speech or facial droop noted, moving all extremities. Transition of care: patient was not received from another setting of care. Onset of symptoms was February 07, 2019. Risk Assessment: Do you want to hurt yourself or someone else? Patient reports no desire to harm self or others. Initial Sepsis Screen: Does the patient meet any 2 criteria? No. Patient's initial sepsis screen is negative. Does the patient have a suspected source of infection? No. Patient's initial sepsis screen is negative. Note Pt reports being seen in ED on and dx w/ UTI. Care prior to arrival: None. 16:51 Method Of Arrival: Wheelchair ph 16:51 Acuity: JESSICA 2 ph Triage Assessment: 16:52 Headache History: Denies prior headaches. General: Appears in no apparent distress. aj1 uncomfortable, Behavior is calm, cooperative, appropriate for age. Pain: Also complains of no other associated symptoms. Pain: Pain currently is 5 out of 10 on a pain scale. Historical: - Allergies: 16:55 Codeine; ph 16:55 Flexeril; ph 16:55 Tape; ph - PMHx: 16:55 Anemia; COPD; CVA; High Cholesterol; Hyperlipidemia; Hypothyroidism; LYMPHOMA; ph - Immunization history:: Adult Immunizations up to date. - Social history:: Smoking status: Patient/guardian denies using tobacco. - Ebola Screening: : Patient denies travel to an Ebola-affected area in the 21 days before illness onset. Screenin:35 Patient has been NPO before screening. The patient is alert, able to follow commands. aj1 The patient does not exhibit slurred or garbled speech The patient is not exhibiting difficulty speaking. The patient does not exhibit difficulty understanding words. The patient is able to swallow own secretions with no drooling or need for suction. Patient tolerated one teaspoon of water. No drooling, immediate coughing, gurgling, or clearing of the throat was noted. The patient tolerated 90mL of water. No drooling, immediate coughing, gurgling, or clearing of the throat was noted. The patient passed the bedside swallow screening. Oral medications may be given as ordered. Contact Physician for further diet orders. Provider notified of bedside swallow screening results: Rocky LUO. 19:31 Abuse screen: Denies threats or abuse. Nutritional screening: No deficits noted. aj1 Tuberculosis screening: No symptoms or risk factors identified. Fall Risk No fall in past 12 months (0 pts). Secondary diagnosis (15 points) TIA, No IV (0 pts). Ambulatory Aid- Crutches/Cane/Walker (15 pts). Gait- Normal/Bed Rest/Wheelchair (0 pts) Mental Status- Oriented to own ability (0 pts). Total Desai Fall Scale indicates Low Risk Score (25-44 pts). Family Present and informed to notify staff if they need to leave bedside. Assessment: 16:51 Reassessment: Code stroke called. aj1 16:52 Reassessment: Pt taken to CT, accompanied by Estella Kimbrough RN. ph 17:05 General: Appears in no apparent distress. comfortable, Behavior is calm, cooperative, aj1 appropriate for age. Pain: Complains of pain in left sabianism Pain does not radiate. Neuro: Level of Consciousness is awake, alert, obeys commands, Oriented to person, place, time, situation, [facility] are equal bilaterally Moves all extremities. Full function Speech is normal, Facial symmetry appears normal, Reports headache numbness in right hand and mouth Denies weakness blurred vision dizziness. Cardiovascular: Denies chest pain, Heart tones S1 S2 present Patient's skin is warm and dry. Rhythm is sinus bradycardia. Respiratory: Airway is patent Respiratory effort is even, unlabored, Respiratory pattern is regular, symmetrical, Breath sounds are clear bilaterally. GI: No signs and/or symptoms were reported involving the gastrointestinal system. : No signs and/or symptoms were reported regarding the genitourinary system. EENT: No signs and/or symptoms were reported regarding the EENT system. Derm: No signs and/or symptoms reported regarding the dermatologic system. Skin is pink, warm \T\ dry. normal. Musculoskeletal: No signs and/or symptoms reported regarding the musculoskeletal system. Circulation, motion, and sensation intact. 17:07 Reassessment: PUJA Stevenson at bedside to evaluate patient. aj1 17:56 Reassessment: Patient states that her headache has gotten worse, denies any other [facility] symptoms at this time. Notified PUJA Stevenson. 18:25 Reassessment: Patient appears in no apparent distress at this time. No changes from aj1 previously documented assessment. Patient and/or family updated on plan of care and expected duration. Pain level reassessed. Patient is alert, oriented x 3, equal unlabored respirations, skin warm/dry/pink. Patient states that her headache is starting to get better. 19:31 Reassessment: Patient appears in no apparent distress at this time. No changes from aj1 previously documented assessment. Patient and/or family updated on plan of care and expected duration. Pain level reassessed. Patient is alert, oriented x 3, equal unlabored respirations, skin warm/dry/pink. Vital Signs: 16:53 BP 177 / 73; Pulse 56; Resp 18; Temp 100.2; Pulse Ox 99% on R/A; ph 17:50 BP 126 / 57; Pulse 48; Resp 18; Pulse Ox 100% on R/A; aj1 18:27 BP 164 / 57; Pulse 47; Resp 14; Pulse Ox 99% on R/A; aj1 18:51 Temp 98.2(O); dh3 NIH Stroke Scale Scores: 17:05 NIHSS Score: 1 jr8 17:10 NIHSS Score: 1 aj1 ED Course: 16:35 Patient arrived in ED. mr 16:36 Sophia Pham MD is Private Physician. mr 16:49 [facility] jr8 16:49 Johnathan Dumas MD is Attending Physician. jr8 16:53 Triage completed. ph 16:57 CT Stroke Brain w/o Contrast In Process Unspecified. EDMS 17:00 Patient has correct armband on for positive identification. aj1 17:05 Initial lab(s) drawn, sent to lab. aj1 17:21 Zoe Lopez RN is Primary Nurse. aj1 17:35 EKG done, by ED staff, reviewed by Rocky LUO. 3 17:52 Stroke CXR 1 View In Process Unspecified. EDMS 18:50 Jim Mckinney MD is Referral Physician. jr8 19:32 No provider procedures requiring assistance completed. Patient did not have IV access aj1 during this emergency room visit. 19:32 Arm band placed on. aj1 Administered Medications: 17:35 Drug: Aspirin 162 mg Route: PO; aj1 19:08 Follow up: Response: No adverse reaction aj1 Point of Care Testing: Blood Glucose: 17:08 Blood Glucose: 90 mg/dL; ss Ranges: Outcome: 18:51 Discharge ordered by MD. jr8 19:34 Discharged to home via wheelchair, with family. aj1 19:34 Condition: good 19:34 Discharge instructions given to patient, family, Instructed on discharge instructions, follow up and referral plans. medication usage, Demonstrated understanding of instructions, follow-up care, medications, Prescriptions given X 1. 19:35 Patient left the ED. aj1 NIH Stroke Scale - NIH Stroke Score Date: 02/07/2019 Time: 17:05 Total Score = 1 1a. Level of Consciousness (LOC) - 0(Alert) 1b. Level of Consciousness (LOC) (Year \T\ Age) - 0(Both) 1c. LOC Commands (Open \T\ Closes Eyes/Webmaster) - 0(Both) 2. Best Gaze (Lateral Gaze Paresis) - 0(Normal) 3. Visual Field Loss - 0(No visual loss) 4. Facial Palsy - 0(Normal) 5a. Left Arm: Motor (10-second hold) - 0(No drift) 5b. Right Arm: Motor (10-second hold) - 0(No drift) 6a. Left Leg: Motor (5-second hold - always test supine) - 0(No drift) 6b. Right Leg: Motor (5-second hold - always test supine) - 0(No drift) 7. Limb Ataxia (finger/nose \T\ heel/brunson - test with eyes open) - 0(Absent) 8. Sensory Loss (pinprick arms/legs/face) - 1(Mild to moderate loss) 9. Best Language: Aphasia (description/naming/reading) - 0(No aphasia) 10. Dysarthria (speech clarity - read or repeat words) - 0(Normal) 11. Extinction and Inattention (visual/tactile/auditory/spatial/personal) - 0(No abnormality) Initials: jr8 NIH Stroke Scale - NIH Stroke Score Date: 02/07/2019 Time: 17:10 Total Score = 1 1a. Level of Consciousness (LOC) - 0(Alert) 1b. Level of Consciousness (LOC) (Year \T\ Age) - 0(Both) 1c. LOC Commands (Open \T\ Closes Eyes/Webmaster) - 0(Both) 2. Best Gaze (Lateral Gaze Paresis) - 0(Normal) 3. Visual Field Loss - 0(No visual loss) 4. Facial Palsy - 0(Normal) 5a. Left Arm: Motor (10-second hold) - 0(No drift) 5b. Right Arm: Motor (10-second hold) - 0(No drift) 6a. Left Leg: Motor (5-second hold - always test supine) - 0(No drift) 6b. Right Leg: Motor (5-second hold - always test supine) - 0(No drift) 7. Limb Ataxia (finger/nose \T\ heel/brunson - test with eyes open) - 0(Absent) 8. Sensory Loss (pinprick arms/legs/face) - 1(Mild to moderate loss) 9. Best Language: Aphasia (description/naming/reading) - 0(No aphasia) 10. Dysarthria (speech clarity - read or repeat words) - 0(Normal) 11. Extinction and Inattention (visual/tactile/auditory/spatial/personal) - 0(No abnormality) Initials: aj1 Signatures: Dispatcher [employer] Zoe Ramsay RN RN aj1 HorvathLoraine Shelby, RN RN ss Roszak, Josh, PA PA jr8 Suzi Wheat RN RN Nidia Whittington [facility]
--- NOTE | 2019-02-07 18:52 | EDPHYS ---
Physician Documentation [facility] Name: Mariluz Lau Age: 88 yrs Sex: Female : 1930 Arrival Date: 02/07/2019 Time: 16:35 Bed 2 Private MD: Sophia Pham ED Physician Johnathan Dumas HPI: 02/07 17:05 This 88 yrs old Female presents to ER via Wheelchair with complaints of jr8 Headache, Numbness Of Face. 17:05 The patient complains of pain to the forehead, right church and left church. The jr8 patient describes the headache as throbbing. Onset: The symptoms/episode began/occurred acutely, today. Associated signs and symptoms: Pertinent positives: paresthesias. Severity of symptoms: At its worst the pain was moderate, in the emergency department the pain has improved, mildly. Headache History: Denies prior headaches. The patient has not experienced similar symptoms in the past. The patient has not recently seen a physician. sudden onset 30 min prior to arrival to ED. Historical: - Allergies: 16:55 Codeine; ph 16:55 Flexeril; ph 16:55 Tape; ph - PMHx: 16:55 Anemia; COPD; CVA; High Cholesterol; Hyperlipidemia; Hypothyroidism; LYMPHOMA; ph - Immunization history:: Adult Immunizations up to date. - Social history:: Smoking status: Patient/guardian denies using tobacco. - Ebola Screening: : Patient denies travel to an Ebola-affected area in the 21 days before illness onset. ROS: 17:05 Eyes: Negative for injury, pain, redness, and discharge, ENT: Negative for injury, jr8 pain, and discharge, Neck: Negative for injury, pain, and swelling, Cardiovascular: Negative for chest pain, palpitations, and edema, Respiratory: Negative for shortness of breath, cough, wheezing, and pleuritic chest pain, Abdomen/GI: Negative for abdominal pain, nausea, vomiting, diarrhea, and constipation, Back: Negative for injury and pain, MS/Extremity: Negative for injury and deformity, Skin: Negative for injury, rash, and discoloration. 17:05 Neuro: Positive for headache, numbness, tingling. Exam: 17:05 Head/Face: Normocephalic, atraumatic. Eyes: Pupils equal round and reactive to light, jr8 extra-ocular motions intact. Lids and lashes normal. Conjunctiva and sclera are non-icteric and not injected. Cornea within normal limits. Periorbital areas with no swelling, redness, or edema. ENT: Nares patent. No nasal discharge, no septal abnormalities noted. Tympanic membranes are normal and external auditory canals are clear. Oropharynx with no redness, swelling, or masses, exudates, or evidence of obstruction, uvula midline. Mucous membranes moist. Neck: Trachea midline, no thyromegaly or masses palpated, and no cervical lymphadenopathy. Supple, full range of motion without nuchal rigidity, or vertebral point tenderness. No Meningismus. Cardiovascular: Regular rate and rhythm with a normal S1 and S2. No gallops, murmurs, or rubs. Normal PMI, no JVD. No pulse deficits. Respiratory: Lungs have equal breath sounds bilaterally, clear to auscultation and percussion. No rales, rhonchi or wheezes noted. No increased work of breathing, no retractions or nasal flaring. Abdomen/GI: Soft, non-tender, with normal bowel sounds. No distension or tympany. No guarding or rebound. No evidence of tenderness throughout. Back: No spinal tenderness. No costovertebral tenderness. Full range of motion. Skin: Warm, dry with normal turgor. Normal color with no rashes, no lesions, and no evidence of cellulitis. MS/ Extremity: Pulses equal, no cyanosis. Neurovascular intact. Full, normal range of motion. Neuro: Awake and alert, GCS 15, oriented to person, place, time, and situation. Cranial nerves II-XII grossly intact. Motor strength 5/5 in all extremities. Sensory grossly intact. Cerebellar exam normal. Normal gait. Vital Signs: 16:53 BP 177 / 73; Pulse 56; Resp 18; Temp 100.2; Pulse Ox 99% on R/A; ph 17:50 BP 126 / 57; Pulse 48; Resp 18; Pulse Ox 100% on R/A; aj1 18:27 BP 164 / 57; Pulse 47; Resp 14; Pulse Ox 99% on R/A; aj1 18:51 Temp 98.2(O); dh3 NIH Stroke Scale Scores: 17:05 NIHSS Score: 1 jr8 17:10 NIHSS Score: 1 aj1 MDM: 16:49 Patient medically screened. jr8 17:05 ED course: After assessing and questioning patient. Patient has rapidly improving jr8 symptoms with no profound debilitating neurological finding. Does not require nor meet criteria for tPA. 18:43 Data reviewed: vital signs, nurses notes, lab test result(s), EKG, radiologic studies, jr8 CT scan. Data interpreted: Pulse oximetry: on room air is 99 %. Interpretation: normal. Counseling: I had a detailed discussion with the patient and/or guardian regarding: the historical points, exam findings, and any diagnostic results supporting the discharge/admit diagnosis, lab results, radiology results, the need for outpatient follow up, a neurologist, to return to the emergency department if symptoms worsen or persist or if there are any questions or concerns that arise at home. ED course: Consulted Dr. Adame about labs, imaging, and patient presentation. Agrees that this is less likely to be ischemic event. Feels patient can be worked up out patient hobson. If worse can come back. Family and patient agree with this plan and are good to go home. All symptoms have now resolved. Will start patient back on plavix . 02/07 16:50 Order name: Basic Metabolic Panel; Complete Time: 18:01 02/07 16:50 Order name: CBC with Diff; Complete Time: 17:21 02/07 16:50 Order name: Protime (+inr); Complete Time: 17:21 8 02/07 16:50 Order name: Ptt, Activated; Complete Time: 17:21 02/07 17:10 Order name: Glucose, Ancillary Testing; Complete Time: 17:21 EDDE 02/07 17:20 Order name: CRP; Complete Time: 18:01 8 02/07 16:50 Order name: CT Stroke Brain w/o Contrast; Complete Time: 17:21 8 02/07 16:50 Order name: Stroke CXR 1 View; Complete Time: 18:01 02/07 16:50 Order name: EKG; Complete Time: 16:51 02/07 16:50 Order name: Accucheck; Complete Time: 17:56 02/07 16:50 Order name: Cardiac monitoring; Complete Time: 17:22 02/07 16:50 Order name: EKG - Nurse/Tech; Complete Time: 17:35 02/07 17:20 Order name: ESR; Complete Time: 18:01 02/07 16:50 Order name: IV Saline Lock; Complete Time: 17:22 02/07 16:50 Order name: Labs collected and sent; Complete Time: 17:22 02/07 16:50 Order name: NPO; Complete Time: 17:22 02/07 16:50 Order name: O2 Per Protocol; Complete Time: 17:02/07 16:50 Order name: O2 Sat Monitoring; Complete Time: 17:23 02/07 16:50 Order name: Stroke Swallow Screen; Complete Time: 17:36 Administered Medications: 17:35 Drug: Aspirin 162 mg Route: PO; aj1 19:08 Follow up: Response: No adverse reaction aj1 Point of Care Testing: Blood Glucose: 17:08 Blood Glucose: 90 mg/dL; ss Ranges: Critical Glucose Levels:Adult <50 mg/dl or >400 mg/dl <40 mg/dl or >180 mg/dl Disposition: 02/08 09:50 Co-signature as Attending Physician, Johnathan Dumas MD I agree with the assessment and belle plan of care. Disposition: 02/07/19 18:51 Discharged to Home. Impression: Paresthesia of skin, Migraine - Complex. - Condition is Stable. - Discharge Instructions: Migraine Headache, Paresthesia. - Prescriptions for Plavix 75 mg Oral Tablet - take 1 tablet by ORAL route once daily; 20 tablet. - Medication Reconciliation Form, Thank You Letter, Antibiotic Education, Prescription Opioid Use form. - Follow up: Jim Mckinney MD; When: 1 - 2 days; Reason: Recheck today's complaints, Continuance of care, Re-evaluation by your physician. - Problem is new. - Symptoms have improved. NIH Stroke Scale - NIH Stroke Score Date: 02/07/2019 Time: 17:05 Total Score = 1 1a. Level of Consciousness (LOC) - 0(Alert) 1b. Level of Consciousness (LOC) (Year \T\ Age) - 0(Both) 1c. LOC Commands (Open \T\ Closes Eyes/Licensed Optician) - 0(Both) 2. Best Gaze (Lateral Gaze Paresis) - 0(Normal) 3. Visual Field Loss - 0(No visual loss) 4. Facial Palsy - 0(Normal) 5a. Left Arm: Motor (10-second hold) - 0(No drift) 5b. Right Arm: Motor (10-second hold) - 0(No drift) 6a. Left Leg: Motor (5-second hold - always test supine) - 0(No drift) 6b. Right Leg: Motor (5-second hold - always test supine) - 0(No drift) 7. Limb Ataxia (finger/nose \T\ heel/brunson - test with eyes open) - 0(Absent) 8. Sensory Loss (pinprick arms/legs/face) - 1(Mild to moderate loss) 9. Best Language: Aphasia (description/naming/reading) - 0(No aphasia) 10. Dysarthria (speech clarity - read or repeat words) - 0(Normal) 11. Extinction and Inattention (visual/tactile/auditory/spatial/personal) - 0(No abnormality) Initials: jr8 NIH Stroke Scale - NIH Stroke Score Date: 02/07/2019 Time: 17:10 Total Score = 1 1a. Level of Consciousness (LOC) - 0(Alert) 1b. Level of Consciousness (LOC) (Year \T\ Age) - 0(Both) 1c. LOC Commands (Open \T\ Closes Eyes/Licensed Optician) - 0(Both) 2. Best Gaze (Lateral Gaze Paresis) - 0(Normal) 3. Visual Field Loss - 0(No visual loss) 4. Facial Palsy - 0(Normal) 5a. Left Arm: Motor (10-second hold) - 0(No drift) 5b. Right Arm: Motor (10-second hold) - 0(No drift) 6a. Left Leg: Motor (5-second hold - always test supine) - 0(No drift) 6b. Right Leg: Motor (5-second hold - always test supine) - 0(No drift) 7. Limb Ataxia (finger/nose \T\ heel/brunson - test with eyes open) - 0(Absent) 8. Sensory Loss (pinprick arms/legs/face) - 1(Mild to moderate loss) 9. Best Language: Aphasia (description/naming/reading) - 0(No aphasia) 10. Dysarthria (speech clarity - read or repeat words) - 0(Normal) 11. Extinction and Inattention (visual/tactile/auditory/spatial/personal) - 0(No abnormality) Initials: aj1 Signatures: Dispatcher [employer] EDZoe Traore RN RN aj1 Johnathan Dumas MD MD cha Roszak, Josh, PA PA jr8 Suzi Wheat RN RN ph Corrections: (The following items were deleted from the chart) 02/07 18:50 18:43 ED course: Consulted Dr. Adame about labs, imaging, and patient jr8 presentation. Agrees that this is less likely to be ischemic event. Feels patient can be worked up out patient hobson. If worse can come back. Family and patient agree with this plan and are good to go home . jr8 19:35 18:51 02/07/2019 18:51 Discharged to Home. Impression: Paresthesia of skin; aj1 Migraine - Complex. Condition is Stable. Forms are Medication Reconciliation Form, Thank You Letter, Antibiotic Education, Prescription Opioid Use. Follow up: Jim Mckinney; When: 1 - 2 days; Reason: Recheck today's complaints, Continuance of care, Re-evaluation by your physician. Problem is new. Symptoms have improved. jr8
[2019-02-07 19:43] VITALS: BP 164/57; O2SAT 99
[2019-02-07 19:44] VITALS: TEMP 98.2
--- NOTE | 2019-02-08 08:37 | EKG ---
Test Date: 2019-02-07 Test Time: 16:31:33 Hospice Care Consultant: ASHLEY MEASUREMENT RESULTS: Intervals: Rate: 50 MT: 208 QRSD: 76 QT: 444 QTc: 404 Randolph: P: 75 MT: 208 QRS: 53 T: 87 INTERPRETIVE STATEMENTS: Sinus bradycardia with sinus arrhythmia Septal infarct, age undetermined T wave abnormality, consider lateral ischemia Abnormal ECG Compared to ECG 07/10/2017 09:49:32 T-wave abnormality now present Sinus rhythm no longer present Myocardial infarct finding still present Electronically Signed On 02-08-19 08:36:52 CDT by Isaac Iqbal
== END 2019-02-07 19:35 | disposition home or self-care (01) ==
LOC: ER 16:33
DX: G43.809 Other migraine, not intractable, without status migrainosus (principal); Z88.5 Allergy status to narcotic agent; Z88.8 Allergy status to other drugs, medicaments and biological substances; Z91.048 Other nonmedicinal substance allergy status
CPT/HCPCS: 36415; 70450; 71045; 80048; 82962; 85025; 85610; 85652; 85730; 86140; 93005; 99284

== ENCOUNTER 2019-05-12 17:11 | Observation (INO) | payer OTHER ==
--- OUTSIDE RECORDS SUMMARY | 2019-05-12 17:14 | XMS REPORT ---
[...] End Date Status Dosage System Date Prolia [facility] 01976862715 60 MG/ML April 09Oct 01, Active as directed Subcutaneous 2017 2018 every 6 months Results No Known Results Summary Purpose eClinicalWorks Submission
--- OUTSIDE RECORDS SUMMARY | 2019-05-12 17:14 | XMS REPORT ---
[...] Medications Results No Known Results Summary Purpose [employer] Submission
--- OUTSIDE RECORDS SUMMARY | 2019-05-12 17:14 | XMS REPORT ---
[...] Status Dosage System Date Date Simvastatin ND 57127560979 20 mg Orally Active 1 tablet Once a day in the evening Verapamil HCl ER ND 26043175615 120 MG Orally Active 1 capsule Once a day (SR) per Sendi Colmenares Prolia [facility] 80565007135 60 MG/ML April 09Oct Active as Subcutaneous 2017 12, directed every 6 months 2018 Prolia ND 34746851888 60 MG/ML March Active as Subcutaneous 2017 05, directed injection every 2019 6 months Symbicort [facility] 65328132525 160-4.5 MCG/ACT Active 2 puffs Inhalation Twice a day Advair Diskus [facility] [address]-41 250-50 MCG/DOSE Active not Inhalation defined Nitroglycerin [facility] 90252094035 0.4 MG Active not Sublingual defined Keflex ND 52233337699 500 MG Orally Active 1 capsule every 12 hrs ProAir HFA [facility] 86677421251 108 (90 Base) Active 2 puffs as MCG/ACT needed for Inhalation sob or every 4-6 hrs wheezing Oxybutynin [facility] 77190515149 10 MG Active TAKE ONE Chloride ER (1) TABLET(S) BY MOUTH ONCE A DAY. Robaxin [facility] 91466368213 500 MG Orally Active 1.5 every 4 hrs tablets Biaxin [facility] 67324369205 500 MG Orally Active 1 tablet every 12 hrs Myrbetriq ND 13633509899 25 MG Orally Active 1 tablet Once a day Ferrous Sulfate [facility] 55012835300 325 (65 Fe) MG Active 1 tablet Orally Once a day Aspir-Low ND 55879500184 81 MG Orally Active 1 tablet Once a day Prolia [facility] 13992321065 60 MG/ML Active not Subcutaneous defined Taztia XT [facility] 86285484510 360 MG Active TAKE ONE (1) CAPSULE(S) BY MOUTH ONCE A DAY. Plavix [facility] 84887605314 75 MG Orally Active 1 tablet Once daily Folic Acid ND 68396087619 1 MG Orally Active 1 tablet Once a day Pantoprazole [facility] 01870753643 40 MG Orally Active 1 tablet Sodium Once daily Synthroid [facility] 93846953076 25 MCG Active TAKE ONE (1) TABLET(S) BY MOUTH ONCE A DAY. G95-[id number] [facility] [address] Orally Once Active 1 tablet daily Augmentin [facility] 06149725160 875-125 MG Active 1 tablet Orally Twice daily Doxycycline ND 90385241756 100 MG Orally Active 1 capsule Hyclate Twice a day x10 days Results No Known Results Summary Purpose eClinicalWorks Submission
--- OUTSIDE RECORDS SUMMARY | 2019-05-12 17:14 | XMS REPORT ---
[...] Start End Status Dosage System Date Date R05-Otuswh [facility] [address] Orally Once Active 1 tablet daily Verapamil HCl ER ND 16283564159 120 MG Orally Active 1 capsule Once a day (SR) per Sendi Colmenares Prolia [facility] 97220693790 60 MG/ML Active not Subcutaneous defined Robaxin [facility] 64750560068 500 MG Orally Active 1.5 every 4 hrs tablets Taztia XT [facility] 00648302436 360 MG Active TAKE ONE (1) CAPSULE(S) BY MOUTH ONCE A DAY. Biaxin ND 87640559903 500 MG Orally Active 1 tablet every 12 hrs Keflex ND 73604383935 500 MG Orally Active 1 capsule every 12 hrs Myrbetriq ND 70483825206 25 MG Orally Active 1 tablet Once a day Ferrous Sulfate ND 00013406314 325 (65 Fe) MG Active 1 tablet Orally Once a day Synthroid ND 15204342784 25 MCG Orally Active 1 tablet Once a day on an empty stomach in the morning Prolia [facility] 39685682445 60 MG/ML March Active as Subcutaneous 1 2017 05, directed injection every 2019 6 months Prolia ND 94396374507 60 MG/ML April 09Oct Active as Subcutaneous 2017 12, directed every 6 months 2019 Augmentin [facility] 03674079197 875-125 MG Active 1 tablet Orally Twice daily Folic Acid [facility] 67168980031 1 MG Orally Active 1 tablet Once a day Pantoprazole [facility] 30847077404 40 MG Orally Active 1 tablet Sodium Once daily Diltiazem HCl ER [facility] [address]-99 360 MG Orally Active 1 capsule Once a day Doxycycline [facility] 37394777656 100 MG Orally Active 1 capsule Hyclate Twice a day x10 days Aspir-Low [facility] 08853836864 81 MG Orally Active 1 tablet Once a day Nitroglycerin [facility] 89059770069 0.4 MG Active not Sublingual defined ProAir HFA [facility] 14027573764 108 (90 Base) Active 2 puffs as MCG/ACT needed for Inhalation sob or every 4-6 hrs wheezing Simvastatin [facility] 34494495281 20 mg Orally Active 1 tablet Once a day in the evening Symbicort [facility] 04191277076 160-4.5 MCG/ACT Active 2 puffs Inhalation Twice a day Oxybutynin [facility] 41309573456 10 MG Orally Oct Active 1 tablet Chloride ER Once a day 2017 Plavix [facility] 16296687329 75 MG Orally Active 1 tablet Once daily Advair Diskus [facility] [address]-56 250-50 MCG/DOSE Active not Inhalation defined Results No Known Results Summary Purpose eClinicalWorks Submission
--- OUTSIDE RECORDS SUMMARY | 2019-05-12 17:14 | XMS REPORT ---
[...] Medications Results No Known Results Summary Purpose [employer] Submission
--- OUTSIDE RECORDS SUMMARY | 2019-05-12 17:14 | XMS REPORT ---
[...] Medications Results No Known Results Summary Purpose [employer] Submission
--- OUTSIDE RECORDS SUMMARY | 2019-05-12 17:14 | XMS REPORT ---
:1930 [facility] Address [address] [place] [address] Dr. Hanley [address] [place] [id number] Care Team Providers Name Role Phone Unavailable Unavailable Unavailable Problems This patient has no known problems. Allergies, Adverse Reactions, Alerts This patient has no known allergies or adverse reactions. Medications This patient has no known medications.
--- OUTSIDE RECORDS SUMMARY | 2019-05-12 17:15 | XMS REPORT ---
:1930 [facility] Care Team Providers Name Role Phone [...] End Status Dosage System Date Date Augmentin [facility] 74888778840 875-125 MG Active 1 tablet Orally Twice daily Keflex [facility] 65576997644 500 MG Orally Active 1 capsule every 12 hrs Diltiazem HCl ER [facility] 91682673084 360 MG Orally Sep 03, Active 1 tablet Coated Beads Once a day 2017 Myrbetriq [facility] 84307244259 25 MG Orally Active 1 tablet Once a day Myrbetriq [facility] 06687077126 25 mg Orally Sep 03May Active 1 tablet Once a day 2017 Loratadine [facility] 28860029743 10 MG Orally Active 1 tablet Once daily Aspir-Low [facility] 58651432800 81 MG Orally Active 1 tablet Once a day Biaxin [facility] 77435503962 500 MG Orally Active 1 tablet every 12 hrs ProAir HFA [facility] 88951494764 108 (90 Base) Active 2 puffs as MCG/ACT needed for Inhalation sob or every 4-6 hrs wheezing Verapamil HCl ER [facility] 88658116074 120 MG Orally Active 1 capsule Once a day (SR) per Sendi Colmenares Oxybutynin [facility] 40641820099 10 MG Active TAKE ONE Chloride ER (1) TABLET(S) BY MOUTH ONCE A DAY. Plavix [facility] 21382456083 75 MG Orally Active 1 tablet Once daily Prolia [facility] 34633820626 60 MG/ML March Active as Subcutaneous 1 2017 16, directed injection every 2019 6 months Vitamin E ND 18390102983 400 UNIT Orally Active 1 tablet Once daily Symbicort [facility] 34564929197 160-4.5 MCG/ACT Active 2 puffs Inhalation Twice a day Advair Diskus [facility] [address]-60 250-50 MCG/DOSE Active not Inhalation defined Robaxin [facility] 66780142701 500 MG Orally Active 1.5 every 4 hrs tablets Flonase [facility] 43574263985 50 MCG/ACT Active 2 sprays Nasally Once a day ProAir HFA [facility] 81980304615 108 (90 Base) Sep 03, Active 2 puffs as MCG/ACT 2017 needed Inhalation every 4-6 hrs Lyrica [facility] 31947256081 50 MG Orally Active 1 capsule Once to twice daily as needed for pain Nitroglycerin [facility] 59206618176 0.4 MG Active not Sublingual defined Doxycycline [facility] 44159970628 100 MG Orally Active 1 capsule Hyclate Twice a day x10 days [id number]-Qxdjhu [facility] 31933124093 1 MG Orally Active 1 tablet Once daily (1,000 mcg) Pantoprazole [facility] 65844968380 40 MG Orally Active 1 tablet Sodium Once daily Synthroid ND 70214551298 25 MCG Orally Active 1 tablet Once a day on an empty stomach in the morning Folic Acid [facility] 42660863020 1 MG Orally Active 1 tablet Once a day Ferrous Sulfate [facility] 47204537687 325 (65 Fe) MG Active 1 tablet Orally Once a day Simvastatin ND 74898273616 20 mg Orally Active 1 tablet Once a day in the evening Results No Known Results Summary Purpose eClinicalWorks Submission
--- OUTSIDE RECORDS SUMMARY | 2019-05-12 17:15 | XMS REPORT ---
[...] End Status Dosage System Date Date Robaxin [facility] 96801612419 500 MG Orally Active 1.5 every 4 hrs tablets ProAir HFA [facility] 03637667287 108 (90 Base) Sep 03, Active 2 puffs as MCG/ACT 2018 needed Inhalation every 4-6 hrs Diltiazem HCl ER ND 55931756371 360 MG Orally Sep 03, Active 1 tablet Coated Beads Once a day 2017 Simvastatin ND 83207126714 20 mg Orally Active 1 tablet Once a day in the evening Oxybutynin ND 45521184767 10 MG Active TAKE ONE Chloride ER (1) TABLET(S) BY MOUTH ONCE A DAY. Folic Acid ND 88846585940 1 MG Orally Active 1 tablet Once a day Doxycycline ND 19897511954 100 MG Orally Active 1 capsule Hyclate Twice a day x10 days Nitroglycerin ND 94814171719 0.4 MG Active not Sublingual defined Plavix [facility] 36997476806 75 MG Orally Active 1 tablet Once daily Myrbetriq ND 71223464827 25 MG Orally Active 1 tablet Once a day Taztia XT ND 82590396338 360 MG Active TAKE ONE (1) CAPSULE(S) BY MOUTH ONCE A DAY. Prolia [facility] 37013940828 60 MG/ML March Active as Subcutaneous 1 2017 05, directed injection every 2018 6 months Keflex ND 30116203379 500 MG Orally Active 1 capsule every 12 hrs Biaxin ND 29240033853 500 MG Orally Active 1 tablet every 12 hrs Ferrous Sulfate [facility] 03321363002 325 (65 Fe) MG Active 1 tablet Orally Once a day Aspir-Low ND 93456410866 81 MG Orally Active 1 tablet Once a day Augmentin ND 09403621433 875-125 MG Active 1 tablet Orally Twice daily Synthroid ND 32289598609 25 MCG Orally Active 1 tablet Once a day on an empty stomach in the morning Myrbetriq ND 15271689216 25 mg Orally Sep 03May Active 1 tablet Once a day 2017 ProAir HFA [facility] 49186961912 108 (90 Base) Active 2 puffs as MCG/ACT needed for Inhalation sob or every 4-6 hrs wheezing Pantoprazole ND 13033612557 40 MG Orally Active 1 tablet Sodium Once daily Prolia [facility] 97653405292 60 MG/ML Active not [place] [address]-33 250-50 MCG/DOSE Active not Inhalation defined [id number] [facility] [address] Orally Once Active 1 tablet daily Verapamil HCl ER ND 80590577375 120 MG Orally Active 1 capsule Once a day (SR) per Sendi Colmenares Symbicort [facility] 82570777155 160-4.5 MCG/ACT Active 2 puffs Inhalation Twice a day Results No Known Results Summary Purpose eClinicalWorks Submission
--- OUTSIDE RECORDS SUMMARY | 2019-05-12 17:15 | XMS REPORT ---
[...] System Date Date Diltiazem HCl ER ND 11809774128 360 MG Orally Sep 03, Active 1 tablet Coated Beads Once a day 2017 Loratadine ND 08548625210 10 MG Orally Active 1 tablet Once daily Oxybutynin ND 29155475905 10 MG Active TAKE ONE Chloride ER (1) TABLET(S) BY MOUTH ONCE A DAY. O57-Kgaibs ND 18548092229 1 MG Orally Active 1 tablet Once daily (1,000 mcg) ProAir HFA [facility] 88220349410 108 (90 Base) Sep 03, Active 2 puffs as MCG/ACT 2018 needed Inhalation every 4-6 hrs Keflex [facility] 14324002211 500 MG Orally Active 1 capsule every 12 hrs Doxycycline ND 18298582040 100 MG Orally Active 1 capsule Hyclate Twice a day x10 days Simvastatin [facility] 40810257598 20 mg Orally Active 1 tablet Once a day in the evening Vitamin E [facility] 50210752616 400 UNIT Orally Active 1 tablet Once daily Pantoprazole [facility] 15099247590 40 MG Orally Active 1 tablet Sodium Once daily Myrbetriq [facility] 95429195377 25 MG Orally Active 1 tablet Once a day Lyrica [facility] 23002089023 50 MG Orally Active 1 capsule Once to twice daily as needed for pain Biaxin [facility] 13965730981 500 MG Orally Active 1 tablet every 12 hrs Augmentin [facility] 81426338707 875-125 MG Active 1 tablet Orally Twice daily Synthroid [facility] 09037911112 25 MCG Orally Active 1 tablet Once a day on an empty stomach in the morning Myrbetriq [facility] 41363075656 25 mg Orally Sep 03May Active 1 tablet Once a day 2017 Ferrous Sulfate [facility] 37069134091 325 (65 Fe) MG Active 1 tablet Orally Once a day Advair Diskus [facility] [address]-93 250-50 MCG/DOSE Active not Inhalation defined Flonase [facility] 50176592944 50 MCG/ACT Active 2 sprays Nasally Once a day Verapamil HCl ER [facility] 10422750702 120 MG Orally Active 1 capsule Once a day (SR) per Sendi Colmenares Prolia [facility] 17706685379 60 MG/ML March Active as Subcutaneous 1 2017 16, directed injection every 2019 6 months Robaxin [facility] 09621803487 500 MG Orally Active 1.5 every 4 hrs tablets Plavix [facility] 52122104418 75 MG Orally Active 1 tablet Once daily Folic Acid [facility] 15769458586 1 MG Orally Active 1 tablet Once a day ProAir HFA [facility] 15609632704 108 (90 Base) Active 2 puffs as MCG/ACT needed for Inhalation sob or every 4-6 hrs wheezing Aspir-Low [facility] 26545045325 81 MG Orally Active 1 tablet Once a day Nitroglycerin [facility] 86552042542 0.4 MG Active not Sublingual defined Symbicort [facility] 01563119627 160-4.5 MCG/ACT Active 2 puffs Inhalation Twice a day Results No Known Results Summary Purpose eClinicalWorks Submission
--- OUTSIDE RECORDS SUMMARY | 2019-05-12 17:16 | XMS REPORT ---
[...] End Status Dosage System Date Date Keflex [facility] 68123543417 500 MG Orally Active 1 capsule every 12 hrs Biaxin ND 09780628986 500 MG Orally Active 1 tablet every 12 hrs Myrbetriq ND 59717978797 25 MG Orally Active 1 tablet Once a day ProAir HFA [facility] 99969067242 108 (90 Base) Active 2 puffs as MCG/ACT needed for Inhalation sob or every 4-6 hrs wheezing Ferrous Sulfate ND 34759488790 325 (65 Fe) MG Active 1 tablet Orally Once a day S54-Tbuslj ND 09902991039 1 MG Orally Active 1 tablet Once daily (1,000 mcg) Oxybutynin [facility] 27782506413 10 MG Active TAKE ONE Chloride ER (1) TABLET(S) BY MOUTH ONCE A DAY. Symbicort [facility] 81243071293 160-4.5 MCG/ACT Active 2 puffs Inhalation Twice a day Lyrica [facility] 14467766950 50 MG Orally Active 1 capsule Once to twice daily as needed for pain Prolia [facility] 50949305154 60 MG/ML March Active as Subcutaneous 1 2017 16, directed injection every 2018 6 months Verapamil HCl ER [facility] 71022178644 120 MG Orally Active 1 capsule Once a day (SR) per Sendi Colmenares Plavix [facility] 17064042080 75 MG Orally Active 1 tablet Once daily Flonase [facility] 79760969060 50 MCG/ACT Active 2 sprays Nasally Once a day Vitamin E [facility] 50742473229 400 UNIT Orally Active 1 tablet Once daily Advair Diskus [facility] [place] [address]-35 250-50 MCG/DOSE Active not Inhalation defined Augmentin [facility] 80486412352 875-125 MG Active 1 tablet Orally Twice daily Aspir-Low [facility] 78761151662 81 MG Orally Active 1 tablet Once a day Loratadine ND 60595282434 10 MG Orally Active 1 tablet Once daily ProAir HFA [facility] 89733672524 108 (90 Base) Sep 03, Active 2 puffs as MCG/ACT 2017 needed Inhalation every 4-6 hrs Pantoprazole [facility] 24875115549 40 MG Orally Active 1 tablet Sodium Once daily Robaxin [facility] 61081109997 500 MG Orally Active 1.5 every 4 hrs tablets Doxycycline [facility] 85600657217 100 MG Orally Active 1 capsule Hyclate Twice a day x10 days Folic Acid ND 15176312798 1 MG Orally Active 1 tablet Once a day Nitroglycerin [facility] 91347480892 0.4 MG Active not Sublingual defined Synthroid [facility] 26612043622 25 MCG Orally Active 1 tablet Once a day on an empty stomach in the morning Diltiazem HCl ER [facility] 84710369254 360 MG Orally Sep 03, Active 1 tablet Coated Beads Once a day 2017 Simvastatin ND 30727002901 20 mg Orally Active 1 tablet Once a day in the evening Myrbetriq [facility] 56774493630 25 mg Orally Sep 03May Active 1 tablet Once a day 2017 Results No Known Results Summary Purpose eClinicalWorks Submission
--- OUTSIDE RECORDS SUMMARY | 2019-05-12 17:16 | XMS REPORT ---
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 Assessment Essential hypertension I10 Active Problem Osteoporosis, unspecified M81.0 Active osteoporosis type, unspecified pathological fracture presence Problem Hypertension, unspecified type I10 Active Problem History of pancreatitis Z87.19 Active Problem Hypothyroidism, unspecified type E03.9 Active Problem Contusion of right upper S40.021A Active extremity, initial encounter Problem Abdominal pain, unspecified R10.9 Active abdominal location Problem Hyperlipidemia, unspecified E78.5 Active hyperlipidemia type Problem Essential hypertension I10 Active Problem Neck pain M54.2 Active Problem Peripheral edema R60.9 Active Problem 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) Problem Coronary artery disease involving I25.10 Active [place] coronary artery of [place] heart, angina presence unspecified Problem History of fall Z91.81 Active Problem 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, unspecified Problem Right lower quadrant abdominal R10.31 Active pain Problem Chronic obstructive pulmonary J44.9 Active disease, unspecified COPD type Problem Acute nonintractable headache, R51 Active unspecified headache type Problem Subcutaneous mass of neck R22.1 Active Problem 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 08390760777 1 MG Orally Active 1 tablet Once a day Advair Diskus [facility] [address]-74 250-50 Active not MCG/DOSE defined Inhalation Symbicort [facility] 99529748411 160-4.5 Active 2 puffs MCG/ACT Inhalation Twice a day Pantoprazole [facility] 95450824894 40 MG Orally Active 1 tablet Sodium Once daily Ferrous Sulfate [facility] 18620534834 325 (65 Fe) MG Active 1 tablet Orally Once a day Doxazosin [facility] 54804593112 1 MG Orally March Active 1 tablet Mesylate Once a day as 05, needed for BP 2019 > ax=255/90 Verapamil HCl ER [facility] 79478532601 240 MG Orally Active 1 tablet Once a day in evening Prolia [facility] 58820939872 60 MG/ML March Active as Subcutaneous 1 , 16, directed injection 2017 2019 every 6 months Lyrica [facility] 66076673434 50 MG Orally Active 1 capsule Once to twice daily as needed for pain Aspir-Low [facility] 82847917747 81 MG Orally Active 1 tablet Once a day Plavix [facility] 65281893648 75 MG Orally Active 1 tablet Once daily Doxycycline [facility] 75983718718 100 MG Orally Active 1 capsule Hyclate Twice a day x10 days Vitamin E [facility] 28922904395 400 UNIT Active 1 tablet Orally Once daily Flonase [facility] 46964416873 50 MCG/ACT Active 2 sprays Nasally Once a day Simvastatin [facility] 57537417363 20 mg Orally Active 1 tablet Once a day in the evening Synthroid [facility] 29248517833 25 MCG Orally Active 1 tablet Once a day on an empty stomach in the morning Myrbetriq [facility] 70414460716 25 MG Orally March Inactive 1 tablet Once a day [address] [facility] 15462970733 10 MG Orally Active 1 tablet Once daily ProAir HFA [facility] 82377388331 108 (90 Base) Active 2 puffs as MCG/ACT needed for Inhalation sob or every 4-6 hrs wheezing Robaxin [facility] 48353132500 500 MG Orally Active 1.5 every 4 hrs tablets Oxybutynin [facility] 98551277440 10 MG Active TAKE ONE Chloride ER (1) TABLET(S) BY MOUTH ONCE A DAY. Augmentin [facility] 27176827283 875-125 MG Active 1 tablet Orally Twice daily Diltiazem HCl ER [facility] 13303705230 360 MG Orally Sep 03, Active 1 tablet Coated Beads Once a day [address] [facility] 23833147423 0.4 MG Active not Sublingual defined Verapamil HCl ER [facility] 74398822143 120 MG Orally Active 1 capsule Once a day (SR) per Rob Colmenares Keflex [facility] 19071167437 500 MG Orally Active 1 capsule every 12 hrs Biaxin [facility] 15481343574 500 MG Orally Active 1 tablet every 12 hrs H51-Ohifdt [facility] 92232957186 1 MG Orally Active 1 tablet Once daily (1,000 mcg) Results No Known Results Summary Purpose eClinicalWorks Submission
--- OUTSIDE RECORDS SUMMARY | 2019-05-12 17:16 | XMS REPORT ---
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 Assessment Hypertension, unspecified type I10 Active Assessment Coronary artery disease involving I25.10 Active [place] coronary artery of [place] heart, angina presence unspecified Assessment Follow-up exam Z09 Active Assessment Acute nonintractable headache, R51 Active unspecified headache type Assessment Diverticulosis large intestine w/o K57.31 Active perforation or abscess w/bleeding Assessment Right lower quadrant abdominal R10.31 Active pain Problem Hypothyroidism, unspecified type E03.9 Active Problem Status post fall Z91.81 Active Problem Dysphagia, unspecified type R13.10 Active Problem Hyperlipidemia, unspecified E78.5 Active hyperlipidemia type Problem Overactive bladder N32.81 Active Problem Neck pain M54.2 Active Problem Contusion of right upper S40.021A Active extremity, initial encounter Problem Coronary artery disease involving I25.10 Active [place] coronary artery of [place] heart, angina presence unspecified Problem 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 Problem Chronic obstructive pulmonary J44.9 Active disease, unspecified COPD type Problem History of pancreatitis Z87.19 Active Problem Right lower quadrant abdominal R10.31 Active pain Problem Osteoporosis, unspecified M81.0 Active osteoporosis type, unspecified pathological fracture presence Problem Acute nonintractable headache, R51 Active unspecified headache type Problem Subcutaneous mass of neck R22.1 Active Problem Diverticulosis large intestine w/o K57.31 Active perforation or abscess w/bleeding Problem 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) Problem Osteoporosis M81.0 Active Problem Anemia D64.9 Active Problem Hypertension, unspecified type I10 Active Problem History of cerebrovascular Z86.73 Active accident Problem History of fall Z91.81 Active 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 Problem GERD (gastroesophageal reflux K21.9 Active disease) Problem 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, unspecified Medications Medication Code Code Instructions Start End Status Dosage System Date Date Synthroid [facility] 82153492485 25 MCG Orally Active 1 tablet Once a day on an empty stomach in the morning Myrbetriq [facility] 05245670874 25 mg Orally Sep 03May Active 1 tablet Once a day 2017 Myrbetriq [facility] 06489455141 25 MG Orally Active 1 tablet Once a day ProAir HFA [facility] 33568544043 108 (90 Base) Sep 03, Active 2 puffs as MCG/ACT 2017 needed Inhalation every 4-6 hrs Ferrous Sulfate [facility] 09752046865 325 (65 Fe) MG Active 1 tablet Orally Once a day Vitamin E [facility] 60722323177 400 UNIT Orally Active 1 tablet Once daily Flonase [facility] 37779263951 50 MCG/ACT Active 2 sprays Nasally Once a day Folic Acid [facility] 72069165826 1 MG Orally Active 1 tablet Once a day Symbicort [facility] 98950260391 160-4.5 MCG/ACT Active 2 puffs Inhalation Twice a day Doxycycline [facility] 75054358167 100 MG Orally Active 1 capsule Hyclate Twice a day x10 days Oxybutynin [facility] 77860642788 10 MG Active TAKE ONE Chloride ER (1) TABLET(S) BY MOUTH ONCE A DAY. Plavix [facility] 83319044197 75 MG Orally Active 1 tablet Once daily Aspir-Low [facility] 24259821401 81 MG Orally Active 1 tablet Once a day Loratadine [facility] 22092218672 10 MG Orally Active 1 tablet Once daily Advair Diskus [facility] [address]-33 250-50 MCG/DOSE Active not Inhalation defined Simvastatin [facility] 67040650069 20 mg Orally Active 1 tablet Once a day in the evening Robaxin [facility] 68340421674 500 MG Orally Active 1.5 every 4 hrs tablets Diltiazem HCl ER [facility] 06987560973 360 MG Orally Sep 03, Active 1 tablet Coated Beads Once a day 2017 ProAir HFA [facility] 16847659207 108 (90 Base) Active 2 puffs as MCG/ACT needed for Inhalation sob or every 4-6 hrs wheezing Lyrica [facility] 18807615056 50 MG Orally Active 1 capsule Once to twice daily as needed for pain Pantoprazole [facility] 77606956572 40 MG Orally Active 1 tablet Sodium Once daily Augmentin [facility] 91412891723 875-125 MG Active 1 tablet Orally Twice daily Keflex [facility] 37695915100 500 MG Orally Active 1 capsule every 12 hrs Nitroglycerin [facility] 24213389540 0.4 MG Active not Sublingual defined Verapamil HCl ER [facility] 23250932891 120 MG Orally Active 1 capsule Once a day (SR) per Rob Colmenares Proljeana [facility] 89859593261 60 MG/ML March Active as Subcutaneous 1 2017 16, directed injection every 2018 6 months Biaxin [facility] 50755627027 500 MG Orally Active 1 tablet every 12 hrs R61-Crfhlc [facility] 57262949877 1 MG Orally Active 1 tablet Once daily (1,000 mcg) Results No Known Results Summary Purpose eClinicalWorks Submission
--- OUTSIDE RECORDS SUMMARY | 2019-05-12 17:16 | XMS REPORT ---
[...] Start End Date Status Dosage System Date [facility] 42497588933 60 MG/ML March 13May 16, Active as directed Subcutaneous 2017 injection every 6 months Results No Known Results Summary Purpose eClinicalWorks Submission
--- OUTSIDE RECORDS SUMMARY | 2019-05-12 17:16 | XMS REPORT ---
:1930 Author Organization eClinicalWorks Care Team Providers Name Role Phone Sophia Pham Provider Role Unavailable Allergies No Known Allergies Problems Problem Type Condition Code Onset Dates Condition Status Problem Hypothyroidism, unspecified type E03.9 Active Problem Status post fall Z91.81 Active Problem Dysphagia, unspecified type R13.10 Active Problem Hyperlipidemia, unspecified E78.5 Active hyperlipidemia type Problem Overactive bladder N32.81 Active Problem Neck pain M54.2 Active Problem Contusion of right upper S40.021A Active extremity, initial encounter Problem Coronary artery disease involving I25.10 Active [place] coronary artery of [place] heart, angina presence unspecified Problem Aneurysm of [...] perforation or abscess w/bleeding Problem 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
--- OUTSIDE RECORDS SUMMARY | 2019-05-12 17:17 | XMS REPORT ---
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
--- OUTSIDE RECORDS SUMMARY | 2019-05-12 17:17 | XMS REPORT ---
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
--- OUTSIDE RECORDS SUMMARY | 2019-05-12 17:17 | XMS REPORT ---
[...] Problem Coronary artery disease involving I25.10 Active yurok coronary artery of yurok heart, angina presence unspecified Problem History of [...] Start End Status Dosage System Date Date Pantoprazole [facility] 33154585568 40 MG Orally Active 1 tablet Sodium Once daily Symbicort [facility] 86895081645 160-4.5 MCG/ACT Active 2 puffs Inhalation Twice a day Doxazosin [facility] 03856641379 1 MG Orally March Active 1 tablet Mesylate Once a day as 2018 needed for BP > mh=599/[address] [facility] 59570571402 0.4 MG Active not Sublingual defined Biaxin [facility] 57344313756 500 MG Orally Active 1 tablet every [address] [facility] 34632649248 75 MG Orally Active 1 tablet Once daily Ferrous Sulfate [facility] 38402910451 325 (65 Fe) MG Active 1 tablet Orally Once a day Robaxin [facility] 63165644157 500 MG Orally Active 1.5 every [address] [facility] 17292495760 10 MG Active TAKE ONE Chloride ER (1) TABLET(S) BY MOUTH ONCE A DAY. Advair Diskus [facility] [address]-31 250-50 MCG/DOSE Active not Inhalation defined Diltiazem HCl ER [facility] 89126164455 360 MG Orally Sep 03, Active 1 tablet Coated Beads Once a day [address] [facility] 56895721461 500 MG Orally Active 1 capsule every 12 hrs P34-Erwkfe [facility] 43278446121 1 MG Orally Active 1 tablet Once daily (1,000 mcg) Verapamil HCl ER [facility] 22429099226 120 MG Orally Active 1 capsule Once a day (SR) per Sendi Colmenares Lyrica [facility] 41340403398 50 MG Orally Active 1 capsule Once to twice daily as needed for pain ProAir HFA [facility] 03409080283 108 (90 Base) Active 2 puffs as MCG/ACT needed for Inhalation sob or every 4-[address] [facility] 13155414513 50 MCG/ACT Active 2 sprays Nasally Once a day Doxycycline [facility] 99040218221 100 MG Orally Active 1 capsule Hyclate Twice a day x10 days Verapamil HCl ER [facility] 95914021178 240 MG Orally Active 1 tablet Once a day in evening Ativan [place] 62206064231 0.5 MG Orally 1 March Active as tablet 30 2018 directed minutes prior to procedure; may repeat x1 within [address] [facility] 90561494947 400 UNIT Orally Active 1 tablet Once daily Prolia [facility] 13279804901 60 MG/ML March Active as Subcutaneous 1 2017 16, directed injection every [address] [facility] 96148101846 1 MG Orally Active 1 tablet Once a day Loratadine [facility] 72561807153 10 MG Orally Active 1 tablet Once daily Augmentin [facility] 42120373131 875-125 MG Active 1 tablet Orally Twice daily Synthroid [facility] 86617984363 25 MCG Orally Active 1 tablet Once a day on an empty stomach in the morning Simvastatin [facility] 27191619883 20 mg Orally Active 1 tablet Once a day in the evening Aspir-Low [facility] 89230514587 81 MG Orally Active 1 tablet Once a day Results No Known Results Summary Purpose eClinicalWorks Submission
[2019-05-12 18:30] LABS: Absolute Lymphocytes (CBC) 1.5 K/uL (0.7-4.9); Absolute Monocytes 0.6 K/uL (0.1-1.3); Absolute Neutrophil 1.9 K/uL (1.8-8.0); Basophils % 0.2 % (0-1.3); Eosinophils % 15.8 % (0-4.4); Hematocrit 34.1 % (36.0-45.0); Lymphocytes % 31.2 % (15.3-44.8); MPV 9.5 fL (7.6-11.3); Monocytes % 13.3 % (3.3-12.3); RBC Red Blood Cell Count 3.56 M/uL (3.86-4.86)
[2019-05-12 18:31] LABS: Protime INR 1.13
[2019-05-12 18:56] LABS: Albumin 3.1 g/dL (3.4-5.0); Bilirubin Direct 0.1 mg/dL (0-0.2); Bilirubin Total 0.5 mg/dL (0.2-1.0); Potassium 3.7 mmol/L (3.5-5.1); Protein, Total 6.4 g/dL (6.4-8.2); Troponin (Emerg Dept Use Only) 0.08 ng/mL (0.0-0.045)
--- NOTE | 2019-05-12 19:49 | ER ---
Nurse's Notes [facility] Name: Mariluz Lau Age: 88 yrs Sex: Female : 1930 Arrival Date: 05/12/2019 Time: 17:13 Bed 17 Private MD: Sophia Pham Diagnosis: Gastrointestinal hemorrhage, unspecified;Elevated troponin Presentation: 05/12 17:16 Presenting complaint: Patient states: i started bleeding from my rectum last night, its hj fresh blood and i had this problem before and they treated it; reports taking Plavix and aspirin; denies abd pain;. Transition of care: patient was not received from another setting of care. Onset of symptoms was May 12, 2019. Risk Assessment: Do you want to hurt yourself or someone else? Patient reports no desire to harm self or others. Initial Sepsis Screen: Does the patient meet any 2 criteria? No. Patient's initial sepsis screen is negative. Does the patient have a suspected source of infection? No. Patient's initial sepsis screen is negative. Care prior to arrival: None. 17:16 Method Of Arrival: Ambulatory 17:16 Acuity: JESSICA 3 hj Historical: - Allergies: 17:18 Codeine; 17:18 Flexeril; 17:18 Tape; hj - Home Meds: 17:36 aspirin 81 mg Oral TbEC 1 tab once daily [Active]; diltiazem HCl 360 mg Oral cpER tw2 [Active]; Plavix 75 mg Oral tab 1 tab once daily [Active]; oxybutynin chloride 10 mg Oral tr24 [Active]; ProAir HFA inhalation as needed [Active]; Iron CR Oral twice a week [Active]; levothyroxine 25 mcg tab [Active]; simvastatin 20 mg Oral tab [Active]; Symbicort 160-4.5 mcg/actuation inhalation HFAA [Active]; Vitamin B-12 1,000 mcg Oral tab [Active]; tramadol 50 mg Oral tab as needed [Active]; - PMHx: 17:18 Anemia; COPD; CVA; High Cholesterol; Hyperlipidemia; Hypothyroidism; LYMPHOMA; hj - PSHx: 17:18 None; hj - Immunization history:: Adult Immunizations. - Social history:: Smoking status: . - Ebola Screening: : Patient denies travel to an Ebola-affected area in the 21 days before illness onset. Screenin:31 Abuse screen: Denies threats or abuse. Nutritional screening: No deficits noted. tw2 Tuberculosis screening: No symptoms or risk factors identified. Fall Risk Secondary diagnosis (15 points) impaired mobility. Assessment: 17:33 General: Appears in no apparent distress. slender, Behavior is calm, cooperative, tw2 appropriate for age. Pain: Denies pain. Neuro: Level of Consciousness is awake, alert, obeys commands, Oriented to person, place, time, situation. Cardiovascular: Denies chest pain, shortness of breath, Heart tones S1 S2 Patient's skin is warm and dry. Respiratory: Airway is patent Respiratory effort is even, unlabored, Respiratory pattern is regular, symmetrical, Breath sounds are clear bilaterally. GI: Abdomen is flat, non-distended, Bowel sounds present X 4 quads. Reports rectal bleeding. : No signs and/or symptoms were reported regarding the genitourinary system. EENT: No signs and/or symptoms were reported regarding the EENT system. Derm: Skin is fragile, is thin, Bruising that is bright red, dark purple, on b/l arms in various locations and stages of healing. 17:34 Musculoskeletal: Range of motion: intact in all extremities. tw2 18:42 Reassessment: Patient appears in no apparent distress at this time. No changes from tw2 previously documented assessment. Patient and/or family updated on plan of care and expected duration. Pain level reassessed. Patient is alert, oriented x 3, equal unlabored respirations, skin warm/dry/pink. 19:13 Reassessment: Patient appears in no apparent distress at this time. Patient and/or jb4 family updated on plan of care and expected duration. Pain level reassessed. Patient is alert, oriented x 3, equal unlabored respirations, skin warm/dry/pink. Pt is resting in bed with guest at the bedside. 20:15 Reassessment: Patient appears in no apparent distress at this time. Patient and/or jb4 family updated on plan of care and expected duration. Pain level reassessed. Patient is alert, oriented x 3, equal unlabored respirations, skin warm/dry/pink. 21:14 Reassessment: Patient appears in no apparent distress at this time. Patient and/or jb4 family updated on plan of care and expected duration. Pain level reassessed. Patient is alert, oriented x 3, equal unlabored respirations, skin warm/dry/pink. 22:15 Reassessment: Patient appears in no apparent distress at this time. Patient and/or jb4 family updated on plan of care and expected duration. Pain level reassessed. Patient is alert, oriented x 3, equal unlabored respirations, skin warm/dry/pink. Pt taken up by nurse via stretcher. chart with patient. Vital Signs: 17:18 BP 160 / 70; Pulse 70; Resp 20; Temp 98.9(O); Pulse Ox 94% on R/A; Weight 53.52 kg; hj Height 5 ft. 3 in. (160.02 cm); Pain 0/10; 18:42 BP 137 / 60; Pulse 55; Resp 16; Pulse Ox 99% on R/A; tw2 19:30 BP 136 / 56; Pulse 53; Resp 16; Pulse Ox 99% on R/A; jb4 20:30 BP 142 / 59; Pulse 61; Resp 18; Pulse Ox 99% on R/A; jb4 21:00 BP 144 / 56; Pulse 59; Resp 16; Temp 98.6(O); Pulse Ox 98% on R/A; jb4 22:30 BP 145 / 81; Pulse 57; Resp 16; Pulse Ox 96% on R/A; jb4 17:18 Body Mass Index 20.90 (53.52 kg, 160.02 cm) ED Course: 17:13 Patient arrived in ED. mr 17:13 Sophia Pham MD is Private Physician. mr 17:17 Triage completed. hj 17:18 Arm band placed on right wrist. hj 17:31 Mary Gomez, EVERT is Primary Nurse. tw2 17:31 Placed in gown. Bed in low position. Adult w/ patient. ekg monitor tech on. Pulse ox on. tw2 NIBP on. 17:40 [facility] kb 17:40 Mayank Maurice MD is Attending Physician. kb 17:57 EKG done, by ED staff, reviewed by Samantha COLON. dh3 18:05 Missed attempt(s): 22 gauge in right antecubital area. Bleeding controlled, band aid tw2 applied, catheter tip intact. Missed attempt(s): 22 gauge in right antecubital area. Bleeding controlled, band aid applied, catheter tip intact. 18:13 Initial lab(s) drawn, by ks, sent to lab. T\T\S collected, blood band applied to patient. 3 Inserted saline lock: 22 gauge in right forearm, using aseptic technique. Blood collected. 19:00 Report given to EVERT Meehan. tw2 19:15 Primary Nurse role handed off by Mary Gomez RN jb4 19:15 Johnathon Caballero, RN is Primary Nurse. jb4 19:48 Cherelle Coffey MD is Hospitalizing Provider. kb 22:30 No provider procedures requiring assistance completed. Patient admitted, IV remains in jb4 place. Administered Medications: No medications were administered Outcome: 19:48 Decision to Hospitalize by Provider. kb 22:30 Admitted to Tele accompanied by nurse, via stretcher, room 423, with chart, Report jb4 called to EVERT hardy 22:30 Condition: stable 22:30 Discharge instructions given to patient, family, Instructed on the need for admit, Demonstrated understanding of instructions. 22:36 Patient left the ED. fc Signatures: Samantha Urena, RESAW OPERATOR-C RESAW OPERATOR-CkLoraine Canada mr ValdezGrecia, RN EVERT Chris Storm, EVERT LOYD Mary Gomez, EVERT LOYD [facility] Johnathon Caballero RN RN [facility] Nidia Whittington [facility] Corrections: (The following items were deleted from the chart) 17:20 17:18 Pulse 70bpm; Resp 20bpm; Pulse Ox 94% RA; Temp 98.9F Oral; 53.52 kg; Height 5 ft. hj 3 in.; BMI: 20.9; Pain 0/10; hj 17:21 17:18 Pulse 70bpm; Resp 20bpm; Pulse Ox 94% RA; Temp 98.9F Oral; 53.52 kg; Height 5 ft. hj 3 in.; BMI: 20.9; Pain 0/10; hj
--- NOTE | 2019-05-12 19:50 | EDPHYS ---
Physician Documentation [facility] Name: Mariluz Lau Age: 88 yrs Sex: Female : 1930 Arrival Date: 05/12/2019 Time: 17:13 Bed 17 Private MD: Sophia Pham ED Physician Mayank Maurice HPI: 05/12 17:49 This 88 yrs old Female presents to ER via Ambulatory with complaints of kb Rectal Bleeding. 17:49 The patient presents to the emergency department with bleeding from the rectum/anus, kb that is moderate. Onset: The symptoms/episode began/occurred last night. Context: the patient has no known special context relating to the rectal area complaint(s). Modifying factors: The symptoms are alleviated by nothing, The symptoms are aggravated by bowel movement. Associate signs and symptoms: Pertinent positives: lower GI bleeding, bright red, Pertinent negatives: abdominal pain, constipation, diarrhea, dysuria, fever, vomiting. The patient has experienced a previous episode, approximately 4 months ago. The patient has not recently seen a physician. Pt reports bright red blood from rectum starting last night. Denies any pain or shortness of breath. Reports weakness. States she's had this once before, they did a colonoscopy and had to cauterize a bleeder.. Historical: - Allergies: 17:18 Codeine; hj 17:18 Flexeril; hj 17:18 Tape; hj - Home Meds: 17:36 aspirin 81 mg Oral TbEC 1 tab once daily [Active]; diltiazem HCl 360 mg Oral cpER tw2 [Active]; Plavix 75 mg Oral tab 1 tab once daily [Active]; oxybutynin chloride 10 mg Oral tr24 [Active]; ProAir HFA inhalation as needed [Active]; Iron CR Oral twice a week [Active]; levothyroxine 25 mcg tab [Active]; simvastatin 20 mg Oral tab [Active]; Symbicort 160-4.5 mcg/actuation inhalation HFAA [Active]; Vitamin B-12 1,000 mcg Oral tab [Active]; tramadol 50 mg Oral tab as needed [Active]; - PMHx: 17:18 Anemia; COPD; CVA; High Cholesterol; Hyperlipidemia; Hypothyroidism; LYMPHOMA; hj - PSHx: 17:18 None; hj - Immunization history:: Adult Immunizations. - Social history:: Smoking status: . - Ebola Screening: : Patient denies travel to an Ebola-affected area in the 21 days before illness onset. ROS: 17:49 Constitutional: Negative for fever, chills, and weight loss, Cardiovascular: Negative kb for chest pain, palpitations, and edema, Respiratory: Negative for shortness of breath, cough, wheezing, and pleuritic chest pain, Back: Negative for injury and pain, : Negative for injury, bleeding, discharge, and swelling, MS/Extremity: Negative for injury and deformity, Skin: Negative for injury, rash, and discoloration, Neuro: Negative for headache, weakness, numbness, tingling, and seizure. 17:49 Abdomen/GI: Positive for rectal bleeding, Negative for abdominal pain, nausea, vomiting, and diarrhea, constipation, black/tarry stool, rectal pain. Exam: 17:49 Constitutional: This is a well developed, well nourished patient who is awake, alert, kb and in no acute distress. Head/Face: Normocephalic, atraumatic. Chest/axilla: Normal chest wall appearance and motion. Nontender with no deformity. No lesions are appreciated. Cardiovascular: Regular rate and rhythm with a normal S1 and S2. No gallops, murmurs, or rubs. Normal PMI, no JVD. No pulse deficits. Respiratory: Lungs have equal breath sounds bilaterally, clear to auscultation and percussion. No rales, rhonchi or wheezes noted. No increased work of breathing, no retractions or nasal flaring. Abdomen/GI: Soft, non-tender, with normal bowel sounds. No distension or tympany. No guarding or rebound. No evidence of tenderness throughout. Back: No spinal tenderness. No costovertebral tenderness. Full range of motion. Skin: Warm, dry with normal turgor. Normal color with no rashes, no lesions, and no evidence of cellulitis. MS/ Extremity: Pulses equal, no cyanosis. Neurovascular intact. Full, normal range of motion. Neuro: Awake and alert, GCS 15, oriented to person, place, time, and situation. Cranial nerves II-XII grossly intact. Motor strength 5/5 in all extremities. Sensory grossly intact. Cerebellar exam normal. Normal gait. 17:49 Abdomen/GI: Rectal exam: rectal tone normal, Stool: grossly bloody, guaiac positive, the exam is chaperoned by a family member, bright red, gross blood with small clots noted on exam. 17:58 ECG was reviewed by the Attending Physician. Vital Signs: 17:18 BP 160 / 70; Pulse 70; Resp 20; Temp 98.9(O); Pulse Ox 94% on R/A; Weight 53.52 kg; hj Height 5 ft. 3 in. (160.02 cm); Pain 0/10; 18:42 BP 137 / 60; Pulse 55; Resp 16; Pulse Ox 99% on R/A; tw2 19:30 BP 136 / 56; Pulse 53; Resp 16; Pulse Ox 99% on R/A; jb4 20:30 BP 142 / 59; Pulse 61; Resp 18; Pulse Ox 99% on R/A; jb4 21:00 BP 144 / 56; Pulse 59; Resp 16; Temp 98.6(O); Pulse Ox 98% on R/A; jb4 22:30 BP 145 / 81; Pulse 57; Resp 16; Pulse Ox 96% on R/A; jb4 17:18 Body Mass Index 20.90 (53.52 kg, 160.02 cm) hj MDM: 17:41 Patient medically screened. kb 17:51 Data reviewed: vital signs, nurses notes. Data interpreted: Pulse oximetry: on room air kb is 94 %. Interpretation: normal. 19:01 Counseling: I had a detailed discussion with the patient and/or guardian regarding: the kb historical points, exam findings, and any diagnostic results supporting the discharge/admit diagnosis, lab results, radiology results, the need for further work-up and treatment in the hospital. 19:10 Physician consultation: Edilberto Alvarez MD was called at 19:10, regarding consult, kb patient's condition, message left with Alvarez's JODI. 19:47 Physician consultation: Cherelle Coffey MD was contacted at 19:48, regarding admission, kb to the telemetry unit. patient's condition, and will see patient in ED, shortly. 05/12 17:48 Order name: Basic Metabolic Panel; Complete Time: 18:59 kb 05/12 17:48 Order name: CBC with Diff; Complete Time: 20:18 kb 05/12 17:48 Order name: LFT's; Complete Time: 18:59 kb 05/12 17:48 Order name: Magnesium; Complete Time: 18:59 kb 05/12 17:48 Order name: NT PRO-BNP; Complete Time: 18:59 kb 05/12 17:48 Order name: PT-INR; Complete Time: 18:43 kb 05/12 17:48 Order name: Troponin (emerg Dept Use Only); Complete Time: 18:59 kb 05/12 17:48 Order name: EKG; Complete Time: 17:52 kb 05/12 17:48 Order name: Cardiac monitoring; Complete Time: 17:51 kb 05/12 17:48 Order name: EKG - Nurse/Tech; Complete Time: 18:00 kb 05/12 17:48 Order name: IV Saline Lock; Complete Time: 18:18 kb 05/12 17:48 Order name: Type And Screen; Complete Time: 19:34 kb 05/12 17:48 Order name: [place]; Complete Time: 18:26 kb 12 20:18 Order name: CBC Smear Scan; Complete Time: 20:18 EDMS 05/12 17:48 Order name: Labs collected and sent; Complete Time: 18:18 kb 05/12 17:48 Order name: O2 Per Protocol; Complete Time: 17:52 kb 05/12 17:48 Order name: O2 Sat Monitoring; Complete Time: 17:52 kb EC:58 Rate is 55 beats/min. Rhythm is regular, Sinus bradycardia. QRS [place] is Normal. NC kb interval is normal at 198 msec. QRS interval is normal at 84 msec. QT interval is normal at 440 msec. Administered Medications: No medications were administered Disposition: 05/12/19 19:48 Hospitalization ordered by Cherelle Coffey for Inpatient Admission. Preliminary diagnosis are Gastrointestinal hemorrhage, unspecified, Elevated troponin. - Bed requested for Telemetry/MedSurg (Inpatient). - Status is Inpatient Admission. fc - Condition is Stable. - Problem is new. - Symptoms are unchanged. UTI on Admission? No Signatures: Dispatcher [employer] EDSamantha Myrick FNP-C FNP-Ckb Chretien, Felicia, RN RN fc Joaquin, Henry, RN RN hj Garcia, Cindy, RN RN cg Wise, Tara, RN RN tw2 Corrections: (The following items were deleted from the chart) 17:51 17:49 Abdomen/GI: Rectal exam: rectal tone normal, Stool: grossly bloody, guaiac kb positive, kb 19:49 17:49 Abdomen/GI: Rectal exam: rectal tone normal, Stool: grossly bloody, guaiac kb positive, the exam is chaperoned by a family member, kb 20:48 19:48 Hospitalization Ordered by Cherelle Coffey MD for Inpatient Admission. Preliminary cg diagnosis is Gastrointestinal hemorrhage, unspecified; Elevated troponin. Bed requested for Telemetry/MedSurg (Inpatient). Status is Inpatient Admission. Condition is Stable. Problem is new. Symptoms are unchanged. UTI on Admission? No. kb 22:36 20:48 05/12/2019 19:48 Hospitalization Ordered by Cherelle Coffey MD for Inpatient fc Admission. Preliminary diagnosis is Gastrointestinal hemorrhage, unspecified; Elevated troponin. Bed requested for Telemetry/MedSurg (Inpatient). Status is Inpatient Admission. Condition is Stable. Problem is new. Symptoms are unchanged. UTI on Admission? No. cg
[2019-05-12 20:17] LABS: Blood Morphology Comment NOT SEEN (NOT SEEN); Platelet Estimate DECR; Urine White Blood Cell Casts OK
--- NOTE | 2019-05-12 20:45 | P.HP ---
Certification for Inpatient Patient admitted to: Inpatient With expected LOS: >2 Midnights Practitioner: I am a practitioner with admitting privileges, knowledge of patient current condition, hospital course, and medical plan of care. Services: Services provided to patient in accordance with Admission requirements found in Title 42 Section 412.3 of the Code of Federal Regulations Patient History Date of Service: 05/12/19 Reason for admission: lower GIB History of Present Illness: Ms Lau is an 88 years old woman who came to ED complaining of bright red blood rectal bleeding. Her symptoms started last night. She denied nausea, vomiting, abdominal pain, or diarrhea. She had the same problem about 1 year ago , she was evaluated by Dr Alvarez at that time and had a colonoscopy. According to the patient, she had cauterization. The patient does not remember her diagnosis, and no records in our system. She takes aspirin and plavix. At arrival, the patient BP was 160/70 HR 70. Lab work shows normal WBC count, Hgb 11.2. Allergies cyclobenzaprine HCl [From Flexeril] Allergy (Mild, Verified 07/09/17 16:44) Rash codeine [Codeine] Adverse Reaction (Intermediate, Verified 07/09/17 16:44) HEAD MCMAHON Tape Allergy (Uncoded 07/09/17 15:10) Unknown Home Medications: Albuterol Sulfate [Proair Hfa] 1 puff IH Q4HP PRN 05/13/17 Budesonide/Formoterol Fumarate [Symbicort 160-4.5 Mcg Inhaler] 2 puff IH Q4HP PRN 05/13/17 Ferrous Sulfate [Ferrous Sulfate*] 325 mg PO BID 05/13/17 Levothyroxine [Synthroid*] 25 mcg PO DAILY 05/13/17 Oxybutynin Chloride [Oxybutynin Chloride ER] 10 mg PO DAILY 05/13/17 Simvastatin [Zocor*] 20 mg PO BEDTIME 05/13/17 Cyclobenzaprine HCl [Flexeril] 5 mg PO BEDTIME PRN 07/16/17 Diltiazem HCl [Taztia Xt] 360 mg PO DAILY 07/16/17 Fluticasone/Salmeterol [Advair 250/50 Diskus] 1 puff IH BID 07/16/17 Folic Acid 1 mg PO DAILY 07/16/17 Methocarbamol [Robaxin] 500 mg PO BEDTIME PRN 07/16/17 Nitroglycerin 0.4 mg SL Q5MX3, Q15MX1, Q30M PRN 07/16/17 - Past Medical/Surgical History Diabetic: No -: HTN -: Hyperlipidemia -: Hypothyroidism -: CAD -: History of throat cancer - lymphoma -: COPD -: CHF -: Osteoporosis -: Lymph nodes removed in neck-left side -: Hysterectomy -: Vertebral surgery-4 vertebrae fused -: Appendectomy -: Lt ankle surgery -: Right humerus bone fx repair -: TMJ sx -: Left face lymphoma sx - Social History Smoking Status: Former smoker Alcohol use: Yes CD- Drugs: No Caffeine use: Yes Place of Residence: Home Review of Systems 10-point ROS is otherwise unremarkable Physical Examination - Physical Exam General: Alert, In no apparent distress HEENT: Atraumatic, PERRLA, Mucous membr. moist/pink, EOMI, Sclerae nonicteric Neck: Supple, 2+ carotid pulse no bruit, No LAD, Without JVD or thyroid abnormality Respiratory: Clear to auscultation bilaterally, Normal air movement Cardiovascular: Regular rate/rhythm, Normal S1 S2 Gastrointestinal: Normal bowel sounds, No tenderness Musculoskeletal: No tenderness Integumentary: No rashes Neurological: Normal speech, Normal strength at 5/5 x4 extr, Normal tone, Normal affect Lymphatics: No axilla or inguinal lymphadenopathy Rectal: Other (obvious blood.) - Studies Laboratory Data (last 24 hrs) 05/12/19 18:13: PT 13.3 H, INR 1.13 05/12/19 18:13: WBC 4.8, Hgb 11.2 L, Hct 34.1 L, Plt Count 128 L 05/12/19 18:13: Sodium 145, Potassium 3.7, BUN 17, Creatinine 0.87, Glucose 105 , Magnesium 2.0, Total Bilirubin 0.5, AST 12 L, ALT 12, Alkaline Phosphatase 64 Microbiology Data (last 24 hrs): 05/12/19 17:49 Stool Occult Blood - Final Assessment and Plan - Problems (Diagnosis) (1) Lower gastrointestinal bleed Current Visit: Yes Status: Acute (2) Hx of lymphoma Current Visit: No Status: Acute (3) Hypertension Onset Date: 05/14/17 Current Visit: No Status: Chronic Qualifiers: Hypertension type: essential hypertension Qualified Code(s): I10 - Essential (primary) hypertension - Plan The patient will be admitted to the hospital due to lower GIB. Differential diagnosis per clinical presentation include diverticulosis and AVM. Will start IV fluids, keep her NPO, close monitor of HH. Dr Jose Raul LUO was notified, and she said that they will see the patient in AM. - Advance Directives Does patient have a Living Will: Yes Does patient have a Durable POA for Healthcare: Yes - Code Status/Comfort Care Code Status Assessed: Yes Code Status: Full Code
--- NOTE | 2019-05-12 21:15 | EKG ---
Test Date: 2019-05-12 Test Time: 17:57:45 Hot Box Checker: ASHLEY MEASUREMENT RESULTS: Intervals: Rate: 55 IA: 198 QRSD: 84 QT: 440 QTc: 420 [place]: P: 61 IA: 198 QRS: 27 T: 91 INTERPRETIVE STATEMENTS: Sinus bradycardia Septal infarct, age undetermined T wave abnormality, consider anterolateral ischemia Abnormal ECG Compared to ECG 02/07/2019 16:31:33 Sinus arrhythmia no longer present Myocardial infarct finding still present T-wave abnormality still present Possible ischemia still present Electronically Signed On 05-12-19 21:14:46 CDT by Isaac Iqbal
[2019-05-12] MEDS ORDERED: ONDANSETRON 4 MG/2 ML VIAL IV PRN (22:58)
[2019-05-12 23:01] VITALS: BMI 20.2
[2019-05-12] MEDS: NA CHLORIDE 0.9% 1,000 ML IV SCH (23:24)
[2019-05-12 23:49] VITALS: O2SAT 98
[2019-05-13 00:09] LABS: Urine Appearance CLEAR; Urine Bilirubin NEGATIVE (NEG); Urine Blood 2+ (NEG); Urine Color YELLOW; Urine Glucose NEGATIVE (NEG); Urine Protein NEGATIVE (NEG)
[2019-05-13 00:18] LABS: Urine Microscopic Reflex ORDER UMIC
[2019-05-13 00:23] LABS: Urine Culture Reflex Order REFLEXED
[2019-05-13 00:24] LABS: Urine Bacteria <20 /HPF (<20); Urine RBC <5 /HPF (NONE SEEN)
[2019-05-13 02:33] LABS: Hematocrit 34.7 % (36.0-45.0)
[2019-05-13 06:23] LABS: Absolute Lymphocytes (CBC) 1.6 K/uL (0.7-4.9); Absolute Monocytes 0.6 K/uL (0.1-1.3); Absolute Neutrophil 2.1 K/uL (1.8-8.0); Basophils % 0.3 % (0-1.3); Eosinophils % 17.8 % (0-4.4); Hematocrit 33.8 % (36.0-45.0); Lymphocytes % 30.3 % (15.3-44.8); MPV 9.6 fL (7.6-11.3); Monocytes % 11.2 % (3.3-12.3); RBC Red Blood Cell Count 3.51 M/uL (3.86-4.86)
[2019-05-13 06:29] LABS: Potassium 3.7 mmol/L (3.5-5.1)
[2019-05-13 06:47] LABS: Platelet Estimate DECR; Urine White Blood Cell Casts OK
[2019-05-13 06:48] LABS: Blood Morphology Comment NOT SEEN (NOT SEEN)
[2019-05-13] MEDS ORDERED: KCL 20 MEQ/100 mL IVPB 20 MEQ/100 ML BAG IV SCH (08:00)
[2019-05-13] MEDS: NA CHLORIDE 0.9% 1,000 ML IV SCH (08:12)
--- NOTE | 2019-05-13 09:17 | EKG ---
Test Date: 2019-05-13 Test Time: 01:47:33 Public Address System Mechanic: RT MEASUREMENT RESULTS: Intervals: Rate: 62 GA: QRSD: 92 QT: 432 QTc: 438 [place]: P: 32 GA: QRS: -39 T: 62 INTERPRETIVE STATEMENTS: Atrial flutter with variable AV block Left axis deviation Minimal voltage criteria for LVH, may be normal variant Septal infarct, age undetermined Abnormal ECG Compared to ECG 05/12/2019 17:57:45 Left-axis deviation now present Left ventricular hypertrophy now present Sinus bradycardia no longer present T-wave abnormality no longer present Possible ischemia no longer present Myocardial infarct finding still present Electronically Signed On 05-13-19 09:16:24 CDT by Guicho Alejo
[2019-05-13] MEDS ORDERED: DOXAZOSIN 2 MG TAB PO PRN (11:40)
[2019-05-13 14:33] VITALS: BP 161/73; TEMP 98.4
--- NOTE | 2019-05-13 16:01 | CON ---
Admitted on 05/12/2019 with a lower GI bleed. I am consulted because of atrial flutter. History Of Present Illness: Ms. Lau is a woman in her 80s. She has seen Dr. Iqbal in the pas t because of history of atrial fibrillation and flutter. Apparently, she had an episode in [facility] and was evaluated with a negative stress test and negative echocardiogram in the past. She has n ever really had any coronary intervention or congestive heart failure. She came in with lower GI ble ed, was noted to be in atrial flutter at least for short. Overnight, no symptoms. At this morning, she was in sinus rhythm. She is only on aspirin and Plavix. She has a history of COPD, hypertension , hypothyroidism, small abdominal aortic aneurysm, dyslipidemia, and anemia. She denies any cardiac symptoms. Denies PND, orthopnea, pedal edema, palpitations, or syncope. Past Medical History: Otherwise stated above. Allergies: CODEINE, AND TAPE. Review of Systems: Negative. Social History: Negative. Family History: Noncontributory. Medications: At home include aspirin, Plavix, iron, Calan, Zocor, inhalers, Cardura, and Synthroid. Physical Examination: General: Ms. Lau is very thin. She is in no acute distress. She is in sinus rhythm, afebrile . HEENT: Negative. Neck: Supple with no bruit. Chest: Clear to auscultation and percussion. Cardiac: Revealed a regular rhythm and rate with no murmurs, gallops, or rubs. Abdomen: Benign. Extremities: Revealed no clubbing, cyanosis, or edema. Diagnostic Data: She had a BNP of 3303, troponin of 0.08. EKG initially shows sinus rhythm, one of them showed atrial fibrillation with normal ventricular response. Chest x-ray was negative. Impression And Plan: 1.Paroxysmal atrial fibrillation and flutter in a patient with lower GI bleed, on aspirin and Plavix . I would definitely not anticoagulate her. She has had a pretty normal echocardiogram and stress t est that is recent. 2.Small abdominal aortic aneurysm of 2.9 cm. 3.Elevated BNP and troponin secondary to GI bleed. 4.Hypertension. 5.Dyslipidemia. 6.Chronic obstructive pulmonary disease. 7.Hypothyroidism. GI workup is pending. Dr. Alvarez has been consulted from a cardiovascular standpoint. I would con tinue the aspirin, may hold the Plavix because of a GI bleed. No further cardiac workup recommended at this point. I would continue her Calan and aspirin regarding her atrial fibrillation. She is not a candidate for anticoagulation. CAROLINE/LYNDON Voice ID: [id number] Report ID: [id number]
[2019-05-13] MEDS ORDERED: ATORVASTATIN 10 MG TAB PO SCH (21:00)
[2019-05-14] MEDS ORDERED: LEVOTHYROXINE SOD 0.025 MG TAB PO SCH (06:30)
--- NOTE | 2019-05-14 06:55 | DS ---
Date of Discharge: 05/13/2019 Consultants: Dr. Alvarez with GI, Dr. Alejo with Cardiology. Procedures: None. Admitting Diagnoses: 1.Acute lower GI bleed. 2.History of lymphoma. 3.Essential hypertension. 4.Congestive heart failure, chronic. 5.COPD. 6.History of throat cancer. 7.Coronary artery disease, on Plavix. 8.Hypothyroidism. 9.Mixed hyperlipidemia. 10.Osteoporosis. 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 Alvarez, who comes in with lower GI bleed. The patient has risk factors i ncluding taking aspirin and Plavix. The patient does not have any cardiac stents. The patient's hem oglobin was monitored. She was kept n.p.o. Her H and H remained stable. She did not have any furth er GI bleed. Her hemoglobin remained stable at 11.1. She responded well to fluids. The patient was seen by NICOLAS, Dr. Alvarez, who recommended outpatient followup. The patient did develop some atrial flutter overnight and was seen by Dr. Alejo who did not recommend any further testing. The patient has had recent echo and stress test. He did recommend discontinuing the Plavix due to recurrent GI bleed. The patient does not have any cardiac stents. The patient was able to tolerate her diet. Sh raj was then stable for discharge, sent home in a stable condition. Activity: As tolerated. Ambulate with assist. Medications: As per medication reconciliation list. Followup: Follow up with primary care physician in 2-3 days. Follow up with NICOLAS, Dr. Alvarez, in 1 week. Follow up with labor relations teacher, Dr. Alejo, in 2 weeks. Return to ER for worsening condition. Physical Examination: General: Awake, alert, oriented x3. Elderly female. CV: S1, S2. Peripheral pulses present. Respiratory: Moving air well bilaterally. Abdomen: Soft, nontender, nondistended. Positive bowel sounds. Extremities: No clubbing, cyanosis, or edema. Neuro: Nonfocal. SA/MODL Voice ID: [id number] Report ID: [id number]
[2019-05-14] MEDS ORDERED: VERAPAMIL HCL 120 MG TAB PO SCH (09:00)
[2019-05-14] MEDS ORDERED: ASPIRIN 81 MG CHEWABLE TABLET PO SCH (09:00)
[2019-05-14] MEDS ORDERED: HOME MED 1 EA UNK (Mirabegron [Myrbetriq] 1 TAB) PO SCH (09:00)
[2019-05-14] MEDS ORDERED: FERROUS SULFATE 325 MG TAB PO SCH (09:00)
[2019-05-14] MEDS ORDERED: OXYBUTYNIN CHLORIDE 5 MG TAB PO SCH (09:00)
== END 2019-05-13 16:30 | disposition home or self-care (01) ==
LOC: ER 17:11 → ERHOLD 21:00 → INTOOBSV 21:00 → 4TH 21:44
PROVIDERS: ADMIT Internal Medicine; ATTEND Family Medicine
DX: K92.2 Gastrointestinal hemorrhage, unspecified (principal); I48.0 Paroxysmal atrial fibrillation; I11.0 Hypertensive heart disease with heart failure; I50.9 Heart failure, unspecified; J44.9 Chronic obstructive pulmonary disease, unspecified; I25.10 Atherosclerotic heart disease of native coronary artery without angina pectoris; I71.4 Abdominal aortic aneurysm, without rupture; E03.9 Hypothyroidism, unspecified; E78.2 Mixed hyperlipidemia; D64.9 Anemia, unspecified; M81.0 Age-related osteoporosis without current pathological fracture; Z79.02 Long term (current) use of antithrombotics/antiplatelets; Z79.82 Long term (current) use of aspirin; Z79.899 Other long term (current) drug therapy; Z85.72 Personal history of non-Hodgkin lymphomas; Z86.73 Personal history of transient ischemic attack (TIA), and cerebral infarction without residual deficits
CPT/HCPCS: 93005 ×2; 85025 ×2; 87086; 80048 ×2; 36415; 86900; 83735; 86850; 85610; 86901; 80076; 82272; 85018; 85014; 84484; 83880; 99285; J7030 ×2; G0378 ×2; 81003; 81015; 87088

== ENCOUNTER 2021-03-20 19:20 | Emergency (ER) | payer OTHER ==
--- OUTSIDE RECORDS SUMMARY | 2021-03-20 19:23 | XMS REPORT | Continuity of Care Document ---
:1930 Author Organization [facility] t Address [address] [place] [address] Care Team Providers Name Role Phone Unavailable Unavailable Unavailable Problems This patient has no known problems. Allergies, Adverse Reactions, Alerts Allergy Allergy Status Severity Reaction(s) Onset Inactive Treating Comm ents Source Name Type Date Date Clinician Cycloben Adverse Active Rash [facility] Medications Ordered Filled Start Stop Current Ordering Indication Dosage Frequency Signature Comments Components Source Medication Medication Date Date Medication? Clinician (SIG) Name Name Triamsimon Triamcinolo Yes Sophia [address] [facility] ne ne 3-26 [facility] applicatio [facility] - Acetonide Acetonide 00:00: n [facility] Singulair Singulair Yes Sophia [address] [facility] 5-02 [facility] Ativan Ativan 2018-0 Yes Sophia as [facility] 4[facility]18 [facility] Diltiazem Diltiazem 2017- Yes Sophia [address] [facility] HCl ER HCl ER 0-04 [facility] Coated Coated 00:00: [facility] Beads Beads 00 l [facility] ent [facility] Prolia Prolia Yes Sophia as [facility] Synthroid Synthroid Yes Sophia [address] [facility] on an [facility] - empty [facility] stomach in l the Outpati morning ent Clinics ProAir HFA ProAir HFA Yes Sophia [address] [facility] Mill[facility] needed for [facility] - sob or [facility] wheezing l [facility]pat[facility] ent Clinics Advair Advair Yes Sophia as [facility] Diskus Diskus [facility] directed [facility] - [facility] Ferrous Ferrous Yes Sophia [address] [facility] Sulfate Sulfate [facility] Loratadine Loratadine Yes Sophia [address] [facility] Oxybutynin Oxybutynin Yes Sophia [address] [facility] Chloride ER Chloride ER [facility] Flonase Flonase Yes Sophia [address] [facility] Doxycycline Doxycycline Yes Sophia [address] [facility] Hyclate Hyclate [facility] Pantoprazol Pantoprazol Yes Sophia [address] [facility] e Sodium e Sodium [facility]ender [facility] - [facility] Donepezil Donepezil Yes Sophia [address] [facility] HCl HCl [facility] at bedtime [facility] Lyrica Lyrica Yes [facility] [address] [facility] Keflex Keflex Yes [facility] Verapamil Verapamil Yes Sophia [address] [facility] HCl ER HCl ER Millender (SR) per [facility] - Sendi [facility] Colmenares l [facility] ent [facility] Vitamin E Vitamin E Yes Sophia [address] [facility] Symbicort Symbicort Yes Sophia [address] [facility] Valsartan-H Valsartan-H Yes Sophia [address] [facility] ydrochlorot ydrochlorot [facility] hiazide hiazide [facility] Plavix Plavix Yes Sophia [address] [facility] [id number] Yes Sophia [address] [facility] (1,000 [facility] mcg) [facility] Simvastatin Simvastatin Yes Sophia [address] [facility] in the [facility] evening [facility] Aspir-Low Aspir-Low Yes Sophia [address] [facility] Verapamil Verapamil Yes Sophia [address] [facility] HCl ER HCl ER [facility] Folic Acid Folic Acid Yes Sophia [address] [facility] Doxazosin Doxazosin Yes Sophia [address] [facility] Mesylate Mesylate [facility] - [facility] Nitroglycer Nitroglycer Yes Sophia not [facility] in in [facility] defined [facility] Augmentin Augmentin Yes Sophia [address] [facility] Robaxin Robaxin Yes Sophia 1.[address] [facility] Millender tablets [facility] Biaxin Biaxin Yes Sophia [address] [facility] Ventolin Ventolin Yes Sophia [address] HFA HFA [facility] needed [facility] Levothyroxi Levothyroxi Yes Sophia [address] [facility] ne Sodium ne Sodium [facility] in the [facility] - morning on [facility] an empty l stomach Outpati ent Clinics Restasis Restasis Yes Sophia [address] [facility] into [facility] affected [facility] eye l [facility] Plavix Plavix Yes Sophia [address] [facility] Xarelto Xarelto Yes Sophia [address] [facility] Procedures This patient has no known procedures. Encounters Start End Encounter Admission Attending Care Care Encounter Source Date/Time Date/Time Type Type Clinicians Facility Department ID 2021-03-19 2021-03-19 [id number] 2021-03-19 2021-03-19 Out[facility] [id number] [facility] 2021-03-14 2021-03-14 Out[facility] [id number] [facility] 2021-03-13 2021-03-13 Outpatient [facility] [id number] [facility] 2021-03-12 2021-03-12 Outpatient [facility] [id number] [facility] 2020-12-18 2020-12-18 Outpatient [facility] [id number] [facility] 2020-11-10 2020-11-10 Out[facility] [id number] [facility] 2020-10-11 2020-10-11 Outpatient [facility] [id number] [facility] 2020-09-11 2020-09-11 Outpatient [facility] [id number] [facility] 2020-08-18 2020-08-18 [facility] [id number] [facility] 08:27[facility]00 08:27:00 [facility] Medicine l Medicine Outpati ent Clinics 2020-08-16 2020-08-16 [facility] [id number] [facility] 09:16:00 09:16:00 [facility] Medicine l Medicine Outpat[facility] ent Clinics 2020-07-24 2020-07-24 [facility] [id number] [facility] 15[facility]03:00 15:03:00 [facility] l Medicine Outpati ent Clinics 2020-07-24 2020-07-24 [facility] [id number] [facility] 09:40:00 09:40:00 [facility] Medicine Medicine Outpati ent Clinics 2020-04-25 2020-04-25 [facility] [id number] [facility] 15[facility]00:00 15:00:00 [facility] Medicine l Medicine Outpati ent Clinics 2020-04-14 2020-04-14 [facility] [id number] [facility] 16[facility]41:00 16:41:00 [facility] Medicine l Medicine Outpati ent Clinics 2020-04-13 2020-04-13 [facility] [id number] [facility] 11:05:00 11:05:00 t [facility] l Medicine Outpati ent Clinics 2020-04-06 2020-04-06 [facility] [id number] [facility] 14[facility]46:00 14:46:00 [facility] Medicine Medicine Outpati ent Clinics 2020-02-24 2020-02-24 [facility] [id number] [facility] 08:31:00 08:31:00 [facility] Medicine Medicine Outpati ent Clinics 2019-12-08 2019-12-08 [facility] [id number] [facility] 09:45:00 09:45:00 [facility] Medicine Medicine Outpati ent Clinics 2019-12-03 2019-12-03 [facility] [id number] [facility] 09:33:00 09:33:00 [facility] Medicine Medicine Outpati ent Clinics 2019-09-01 2019-09-01 [facility] [id number] [facility] 08:40:00 08:40:00 [facility] Medicine Medicine Outpati ent Clinics 2019-06-15 2019-06-15 [facility] [id number] [facility] 08:57:00 08:57:00 [facility] Medicine Medicine Outpati ent Clinics 2019-05-24 2019-05-24 [facility] [id number] [facility] 20:46:00 20:46:00 t [facility] Medicine Outpati ent Clinics 2019-05-20 2019-05-20 [facility] [id number] [facility] 09:40:00 09:40:00 t [facility] Medicine Outpati ent Clinics 2019-04-08 2019-04-08 [facility] [id number] [facility] 14[facility]13:00 14:13:00 t [facility] Medicine Outpati ent Clinics 2019-03-31 2019-03-31 [facility] [id number] [facility] 11:25:00 11:25:00 [facility] Medicine Outpati ent Clinics 2019-03-16 2019-03-16 [facility] [id number] [facility] 14:19:00 14:19:00 t [facility] Medicine Outpati ent Clinics 2019-03-05 2019-03-05 [facility] [id number] [facility] 13:20:00 13:20:00 t [facility] Medicine Outpati ent Clinics 2019-02-10 2019-02-10 [facility] [id number] [facility] 19[facility]46:00 19:46:00 t [facility] Medicine Outpati ent Clinics 2019-02-10 2019-02-10 [facility] [id number] [facility] 10:00:00 10:00:00 t [facility] Medicine Outpati ent Clinics 2019-02-02 2019-02-02 [facility] [id number] [facility] 23:34:00 23:34:00 t [facility] Medicine Outpati ent Clinics 2019-01-06 2019-01-06 [facility] [id number] [facility] 10:35:00 10:35:00 t [facility] Medicine Medicine Outpati ent Clinics 2018-12-31 2018-12-31 [facility] [id number] [facility] 22:55:00 22:55:00 [facility] Medicine Medicine Outpati ent Clinics 2018-12-31 2018-12-31 [facility] [id number] [facility] 10:45:00 10:45:00 [facility] Medicine l Medicine Outpati ent Clinics 2018-12-04 2018-12-04 [facility] [id number] [facility] 13[facility]30:00 13:30:00 [facility] Medicine l Medicine Outpati ent Clinics 2018-11-17 2018-11-17 [facility] [id number] [facility] 08:19:00 08:19:00 t [facility] Medicine Outpati ent Clinics 2018-11-11 2018-11-11 [facility] [id number] [facility] 14:35:00 14:35:00 t [facility] Medicine Outpati ent Clinics 2018-09-10 2018-09-10 [facility] [id number] [facility] 12:59:00 12:59:00 [facility] Medicine l Medicine Outpati ent Clinics 2018-09-03 2018-09-03 [facility] [id number] [facility] 08:45:00 08:45:00 [facility] Medicine l Medicine Outpati ent Clinics 2018-09-02 2018-09-02 [facility] [id number] [facility] 12:15:00 12:15:00 t [facility] l Outpati ent Clinics 2018-07-23 2018-07-23 [facility] [id number] [facility] 11:05:00 11:05:00 t [facility] Medicine l Medicine Outpati ent Clinics 2018-06-09 2018-06-09 [facility] [id number] [facility] 09:00:00 09:00:00 t [facility] Medicine Outpati ent Clinics 2018-06-05 2018-06-05 [facility] [id number] [facility] 12:51:00 12:51:00 t [facility] Medicine Outpati ent Clinics 2018-05-20 2018-05-20 [facility] [id number] [facility] 09:02:00 09:02:00 [facility] Medicine Outpati ent Clinics 2018-04-09 2018-04-09 [facility] [id number] [facility] 10:56:00 10:56:00 t [facility] Medicine Outpati ent Clinics 2018-03-13 2018-03-13 [facility] [id number] [facility] 10:56:00 10:56:00 [facility] Medicine Outpati ent Clinics 2018-03-11 2018-03-11 [facility] [id number] [facility] 10:00:00 10:00:00 [facility] Medicine Outpati ent Clinics Results This patient has no known results.
[2021-03-20 21:54] LABS: Absolute Lymphocytes (CBC) 1.5 K/uL (0.7-4.9); Basophils % 0.5 % (0-1.3); Hematocrit 28.2 % (36.0-45.0); Lymphocytes % 32.1 % (15.3-44.8)
[2021-03-20 22:07] LABS: Platelet Estimate DECR; White Blood Cell Scan OK (OK)
[2021-03-20 22:08] LABS: Blood Morphology Comment NOT SEEN (NOT SEEN)
[2021-03-20 22:11] LABS: Potassium 4.1 mmol/L (3.5-5.1)
[2021-03-20 22:21] LABS: Urine Blood 2+ (Negative); Urine Glucose Trace (Negative); Urine Protein 1+ (Negative); Urine pH 5.5 (5.0-7.0)
[2021-03-20] MEDS ORDERED: MORPHINE 2 MG/ML SYR ONE (22:41)
[2021-03-20] MEDS ORDERED: CEFTRIAXONE/SWI 1gm 1 GM/10 ML SYR ONE (22:41)
--- NOTE | 2021-03-20 22:49 | ER ---
Nurse's Notes [facility] Name: Mariluz Lau Age: 89 yrs Sex: Female : 1930 Arrival Date: 03/20/2021 Time: 19:22 Bed 26 Private MD: Diagnosis: Urinary tract infection, site not specified Presentation: 03/20 19:50 Chief complaint: Patient's son or daughter states: she is complaining of lower rr5 abdominal pain. her doctor prescribed her antibiotic (nitrofurantoin and phenazopyridine) but it did not help for the pain.she has been diagnosed for UTI last Friday. reported burning sensation when she pee, no fever. Coronavirus screen: Client denies travel out of the [place] in the last 14 days. At this time, the client does not indicate any symptoms associated with coronavirus-19. Ebola Screen: Patient negative for fever greater than or equal to 101.5 degrees Fahrenheit, and additional compatible Ebola Virus Disease symptoms Patient denies exposure to infectious person. Patient denies travel to an Ebola-affected area in the 21 days before illness onset. Initial Sepsis Screen: Does the patient meet any 2 criteria? No. Patient's initial sepsis screen is negative. Does the patient have a suspected source of infection? No. Patient's initial sepsis screen is negative. Risk Assessment: Do you want to hurt yourself or someone else? Patient reports no desire to harm self or others. Onset of symptoms was March 2021. 19:50 Method Of Arrival: Wheelchair rr5 19:50 Acuity: JESSICA 3 rr5 Historical: - Allergies: 19:58 Codeine; rr5 19:58 Flexeril; rr5 19:58 Tape; rr5 - PMHx: 19:58 Anemia; COPD; CVA; High Cholesterol; Hypothyroidism; LYMPHOMA; paralyze vocal chord; rr5 - PSHx: 19:58 tumor removal; shoulder surgery; Appendectomy; Hysterectomy; rr5 - Immunization history:: Adult Immunizations up to date, Client reports receiving the 2nd dose of the Covid vaccine. - Social history:: Smoking status: unknown Patient/guardian denies using alcohol, street drugs. Screenin:30 Abuse screen: Denies threats or abuse. Denies injuries from another. Nutritional rr5 screening: No deficits noted. Tuberculosis screening: No symptoms or risk factors identified. Fall Risk IV access (20 points). Total Desai Fall Scale indicates No Risk (0-24 pts). Assessment: 21:30 General: Appears in no apparent distress. comfortable, Behavior is calm, cooperative, rr5 appropriate for age. 21:30 Pain: Complains of pain in right lower quadrant and left lower quadrant Pain currently rr5 is 10 out of 10 on a pain scale. Quality of pain is described as aching, Pain began gradually, Is intermittent. Neuro: Level of Consciousness is awake, alert, obeys commands, Oriented to person, place, time. Cardiovascular: Capillary refill < 3 seconds Patient's skin is warm and dry. Respiratory: Airway is patent Respiratory effort is even, unlabored, Respiratory pattern is regular, symmetrical. GI: Abdomen is round Reports lower abdominal pain. : Parent/caregiver report the patient having burning with urination. EENT: No signs and/or symptoms were reported regarding the EENT system. Derm: No signs and/or symptoms reported regarding the dermatologic system. Musculoskeletal: Capillary refill < 3 seconds, Reports left arm precaution. 22:07 Reassessment: Patient appears in no apparent distress at this time. Patient is alert, rr5 oriented x 3, equal unlabored respirations, skin warm/dry/pink. back from ct scan. Vital Signs: 19:50 BP 149 / 107; Pulse 56; Resp 16; Temp 98.3; Pulse Ox 97% ; Weight 48.08 kg; Height 5 rr5 ft. 1 in. (154.94 cm); Pain 10/10; 22:08 BP 156 / 59; Pulse 57; Resp 19; Pulse Ox 95% ; rr5 23:08 BP 151 / 70; Pulse 55; Resp 16; Pulse Ox 98% ; rr5 19:50 Body Mass Index 20.03 (48.08 kg, 154.94 cm) rr5 ED Course: 19:22 Patient arrived in ED. cl3 19:56 Triage completed. rr5 19:58 Arm band placed on right wrist. rr5 20:52 [facility]C [facility] kb 20:52 Johnathan Dumas MD is Attending Physician. kb 21:30 Patient has correct armband on for positive identification. Bed in low position. Call rr5 light in reach. Side rails up X2. Pulse ox on. NIBP on. 21:30 Inserted saline lock: 20 gauge in right antecubital area, using aseptic technique. rr5 Blood collected. 21:59 Osiel Medina, RN is Primary Nurse. rr5 22:08 CT Abd/Pelvis - IV Contrast Only In Process Unspecified. EDMS 23:07 No provider procedures requiring assistance completed. IV discontinued, intact, rr5 bleeding controlled, No redness/swelling at site. Pressure dressing applied. Administered Medications: 22:40 Drug: morphine 2 mg {Note: rass 0.} Route: IVP; Site: right antecubital; rr5 23:08 Follow up: Response: No adverse reaction; Pain is decreased; RASS: Alert and Calm (0) rr5 22:48 Drug: Rocephin (cefTRIAXone) 1 grams Route: IV; Rate: calculated rate; Site: right rr5 antecubital; 23:08 Follow up: Response: No adverse reaction; IV Status: Completed infusion; IV Intake: [id number] Intake: 23:08 IV: 10ml; Total: 10ml. rr5 Outcome: 22:48 Discharge ordered by . savi 23:07 Discharged to home via wheelchair, with family. rr5 23:07 Condition: stable 23:07 Discharge instructions given to patient, family, Instructed on discharge instructions, follow up and referral plans. medication usage, Demonstrated understanding of instructions, follow-up care, medications, Prescriptions given X 1. 23:25 Patient left the ED. rr5 Signatures: Dispatcher [employer] Samantha Urena, DELIVERY COORDINATOR-C DELIVERY COORDINATOR-Osiel Pleitez, RN RN rr5 Farheen Degroot cl3
--- NOTE | 2021-03-20 22:49 | EDPHYS ---
Physician Documentation [facility] Name: Mariluz Lau Age: 89 yrs Sex: Female : 1930 Arrival Date: 03/20/2021 Time: 19:22 Bed 26 Private MD: ED Physician Johnathan Dumas HPI: 03/20 23:41 This 89 yrs old Female presents to ER via Wheelchair with complaints of Pain kb With Urination. 23:41 The patient presents with urinary symptoms, dysuria, frequency. The patient has not kb experienced similar symptoms in the past. The patient has not recently seen a physician. 23:41 Onset: The symptoms/episode began/occurred 2 day(s) ago. Modifying factors: The kb symptoms are alleviated by nothing, the symptoms are aggravated by urinating. Associated signs and symptoms: Pertinent positives: dysuria, urinary frequency. Severity of symptoms: At their worst the symptoms were moderate, in the emergency department the symptoms are unchanged. Daughter reports pt has had burning with urination, urinary frequency and bladder spasms for 2 days. Called PCP and was given antibiotics and pain medication yesterday. Has taken 3 doses of antibiotics, but still having pain. Historical: - Allergies: 19:58 Codeine; rr5 19:58 Flexeril; rr5 19:58 Tape; rr5 - PMHx: 19:58 Anemia; COPD; CVA; High Cholesterol; Hypothyroidism; LYMPHOMA; paralyze vocal chord; rr5 - PSHx: 19:58 tumor removal; shoulder surgery; Appendectomy; Hysterectomy; rr5 - Immunization history:: Adult Immunizations up to date, Client reports receiving the 2nd dose of the Covid vaccine. - Social history:: Smoking status: unknown Patient/guardian denies using alcohol, street drugs. ROS: 23:37 Constitutional: Negative for fever, chills, and weight loss, MS/Extremity: Negative for kb injury and deformity, Skin: Negative for injury, rash, and discoloration, Neuro: Negative for headache, weakness, numbness, tingling, and seizure. 23:37 : Positive for urinary symptoms, urinary frequency, burning with urination. Exam: 23:40 Constitutional: This is a well developed, well nourished patient who is awake, alert, kb and in no acute distress. Head/Face: Normocephalic, atraumatic. Respiratory: Respirations even and unlabored. No increased work of breathing, no retractions or nasal flaring. Back: No spinal tenderness. No costovertebral tenderness. Full range of motion. Skin: Warm, dry with normal turgor. Normal color. MS/ Extremity: Pulses equal, no cyanosis. Neurovascular intact. Full, normal range of motion. Neuro: Awake and alert, GCS 15, oriented to person, place, time, and situation. Moves all extremities. Normal gait. 23:40 Abdomen/GI: Inspection: abdomen appears normal, Bowel sounds: normal, in all quadrants, Palpation: soft, in all quadrants, mild abdominal tenderness, in the suprapubic area. Vital Signs: 19:50 BP 149 / 107; Pulse 56; Resp 16; Temp 98.3; Pulse Ox 97% ; Weight 48.08 kg; Height 5 rr5 ft. 1 in. (154.94 cm); Pain 10/10; 22:08 BP 156 / 59; Pulse 57; Resp 19; Pulse Ox 95% ; rr5 23:08 BP 151 / 70; Pulse 55; Resp 16; Pulse Ox 98% ; rr5 19:50 Body Mass Index 20.03 (48.08 kg, 154.94 cm) rr5 MDM: 20:52 Patient medically screened. kb 23:34 Data reviewed: vital signs, nurses notes. Data interpreted: Pulse oximetry: on room air kb is 98 %. Interpretation: normal. Counseling: I had a detailed discussion with the patient and/or guardian regarding: the historical points, exam findings, and any diagnostic results supporting the discharge/admit diagnosis, lab results, radiology results, the need for outpatient follow up, a family practitioner, to return to the emergency department if symptoms worsen or persist or if there are any questions or concerns that arise at home. 23:43 ED course: Pt to continue prescribed macrobid. . kb 03/20 21:09 Order name: Basic Metabolic Panel; Complete Time: 22:12 kb 03/20 21:09 Order name: CBC with Diff; Complete Time: 22:08 kb 03/20 21:09 Order name: Urine Microscopic Only kb 03/20 21:09 Order name: CT Abd/Pelvis - IV Contrast Only kb 03/20 22:06 Order name: CBC Smear Scan; Complete Time: 22:08 EDMS 03/20 22:21 Order name: Urine Dipstick-Ancillary; Complete Time: 22:25 [facility] 03/20 21:09 Order name: IV Saline Lock; Complete Time: 22:00 kb 03/20 21:09 Order name: Labs collected and sent; Complete Time: 22:00 kb 03/20 21:09 Order name: Urine Dipstick-Ancillary (obtain specimen); Complete Time: 22:51 kb Administered Medications: 22:40 Drug: morphine 2 mg {Note: rass 0.} Route: IVP; Site: right antecubital; rr5 23:08 Follow up: Response: No adverse reaction; Pain is decreased; RASS: Alert and Calm (0) rr5 22:48 Drug: Rocephin (cefTRIAXone) 1 grams Route: IV; Rate: calculated rate; Site: right rr5 antecubital; 23:08 Follow up: Response: No adverse reaction; IV Status: Completed infusion; IV Intake: [id number] Disposition: 03/21 09:58 Co-signature as Attending Physician, Johnathan Dumas MD I agree with the assessment and belle plan of care. Disposition: 03/20/21 22:48 Discharged to Home. Impression: Urinary tract infection, site not specified. - Condition is Stable. - Discharge Instructions: Urinary Tract Infection, Adult, [id number]. - Prescriptions for Tramadol 50 mg Oral Tablet - take 1 tablet by ORAL route every 8 hours as needed; 12 tablet. - Medication Reconciliation Form, Thank You Letter, Antibiotic Education, Prescription Opioid Use form. - Follow up: Emergency Department; When: As needed; Reason: Worsening of condition. Follow up: Private Physician; When: 2 - 3 days; Reason: Recheck today's complaints, Continuance of care, Re-evaluation by your physician. Signatures: Dispatcher [employer] [facility] Samantha Urena, ACID PAINTER-C MELANIE-Johnathan Galindo MD MD cha Roque, Raymond, RN RN rr5 Corrections: (The following items were deleted from the chart) 03/20 23:25 22:48 03/20/2021 22:48 Discharged to Home. Impression: Urinary tract infection, site rr5 not specified. Condition is Stable. Forms are Medication Reconciliation Form, Thank You Letter, Antibiotic Education, Prescription Opioid Use. Follow up: Emergency Department; When: As needed; Reason: Worsening of condition. Follow up: Private Physician; When: 2 - 3 days; Reason: Recheck today's complaints, Continuance of care, Re-evaluation by your physician. kb 23:41 23:40 Constitutional: This is a well developed, well nourished patient who is awake, kb alert, and in no acute distress. Head/Face: Normocephalic, atraumatic. Respiratory: Respirations even and unlabored. No increased work of breathing, no retractions or nasal flaring. Skin: Warm, dry with normal turgor. Normal color. MS/ Extremity: Pulses equal, no cyanosis. Neurovascular intact. Full, normal range of motion. Neuro: Awake and alert, GCS 15, oriented to person, place, time, and situation. Moves all extremities. Normal gait. kb
[2021-03-20 23:31] VITALS: TEMP 98.3
[2021-03-20 23:35] VITALS: BP 151/70; O2SAT 98
[2021-03-21 00:19] LABS: Urine Bacteria LOADED /HPF (<20)
[2021-03-21 00:20] LABS: Urine RBC <5 /HPF (NONE SEEN); Urine Urothelial Cells <5 /HPF (NONE SEEN)
--- NOTE | 2021-03-21 11:40 | RAD REPORT ---
EXAM DESCRIPTION: CT ABDOMEN PELVIS WITH IV CONTRAST CLINICAL HISTORY: ABD PAIN. COMPARISON: None. TECHNIQUE: CT of the abdomen and pelvis was performed following intravenous administration of iodina christian contrast. Arterial phase images through the abdomen, and portal venous phase images through the a bdomen and pelvis were obtained. Oral contrast was not administered. Axial, coronal, and sagittal sof t tissue window reconstructions were created and sent to PACS. This exam was performed according to our departmental dose-optimization program, which includes autom ated exposure control, adjustment of the mA and/or kV according to patient size and/or use of iterati ve reconstruction technique. FINDINGS: Thoracic: Mild interstitial thickening in the lung bases. Hepatobiliary: Mild periportal edema. No concerning hepatic lesion identified. The hepatic and portal veins are patent. The gallbladder is unremarkable. No biliary ductal dilatation. Pancreas: Unremarkable. Spleen: Unremarkable. Gastrointestinal: No evidence of bowel obstruction or perienteric inflammation. The appendix is dionicio l. Prominent left colonic diverticulosis. Adrenals: Mild bilateral adrenal gland thickening. No discrete nodules. Renal: Few tiny bilateral renal hypodensities, likely cysts. No concerning parenchymal abnormality in either kidney. No hydronephrosis or urolithiasis. Bladder/Reproductive: Unremarkable appearance of the urinary bladder by CT technique. Vascular/Lymphatics: No lymphadenopathy identified by CT size criteria. Moderate atherosclerosis. Inf rarenal abdominal aorta measures 3.3 x 3.4 cm. 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 Dista l to this point, the estimated patent. The remaining visceral vessels are patent. Musculoskeletal: No concerning osseous lesion identified. Osteopenia with multilevel vertebroplasty c ement. Bilateral femoral head avascular necrosis with no cortical collapse or crescent sign identifie d (FICAT stage II). Fluid / peritoneum: No significant free fluid. No free intraperitoneal air identified. IMPRESSION 1. No acute abnormality identified in the abdomen or pelvis by CT. 2. Mild periportal edema, nonspecific. Consider correlation with LFTs. 3. Mild infrarenal abdominal aortic aneurysm, measuring up to 3.4 cm in diameter. Recommend follow- up every 3 years (Reference: J Am Verenice Radiol 2013;10:789-794). 4. 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 5. Osteopenia. Multilevel vertebroplasty cement. Bilateral femoral head avascular necrosis. Electronically signed by: Oralia García MD 03/20/2021 10:23 PM CDT Due to temporary technical issues with the PACS/Fluency reporting system, reports are being signed by the in house radiologist without review as a courtesy to ensure prompt reporting. The interpreting r adiologist is fully responsible for the content of the report.
== END 2021-03-20 23:25 | disposition home or self-care (01) ==
LOC: ER 19:20
DX: N39.0 Urinary tract infection, site not specified (principal); Z88.5 Allergy status to narcotic agent; Z88.8 Allergy status to other drugs, medicaments and biological substances; Z91.048 Other nonmedicinal substance allergy status
CPT/HCPCS: 96365; 87088; 85025; 87086; 80048; 36415; 82565; 74177; 96375; 99284; Q9967; J2270; J0696; 81003; 81015